=== PATIENT | female | born 1945 | race Caucasian/White ===

== ENCOUNTER 2016-08-01 12:46 | Outpatient (CLI) | payer MEDICARE, OTHER ==
--- NOTE | 2016-08-02 06:48 | Ultrasound Report ---
THYROID ULTRASOUND: 08/01/2016 CLINICAL INDICATION: Hypothyroidism. TECHNIQUE: Real-time scanning was performed with account services representative static images obtained. FINDINGS: The right lobe measures 3.1 x 1.7 x 1.1 cm, and the left lobe measures 4.1 x 1.1 x 0.8 cm. The isthmus measures 4 mm. Both lobes demonstrate mild heterogeneity. There is a 4 mm cyst in the lower pole of the left lobe. No suspicious solid nodule is seen. IMPRESSION: NO EVIDENCE OF SUSPICIOUS SOLID THYROID NODULE. JOB #: [id number] EXT JOB #:
== END 2016-08-01 12:47 | disposition home or self-care (01) ==
LOC: DI 12:46
PROVIDERS: ATTEND Internal Medicine
DX: E03.9 Hypothyroidism, unspecified (principal)
CPT/HCPCS: 76536

== ENCOUNTER 2017-07-11 09:33 | Outpatient (CLI) | payer MEDICARE, OTHER ==
--- NOTE | 2017-07-11 10:47 | XRAY Report ---
THREE VIEW BILATERAL HANDS: 07/11/2017 CLINICAL INDICATION: Arthralgias. COMPARISON: 02/12/2013. FINDINGS: AP, lateral, oblique views of the bilateral hands demonstrate stable mild osteoarthritis. There is no evidence of interval fracture. No radiopaque foreign body is seen in the soft tissues. IMPRESSION: STABLE MILD OSTEOARTHRITIS. TD: 07/11/2017 10:27
== END 2017-07-11 09:34 | disposition home or self-care (01) ==
LOC: DI.N 09:33
PROVIDERS: ATTEND Internal Medicine
DX: M19.042 Primary osteoarthritis, left hand (principal); M19.041 Primary osteoarthritis, right hand

== ENCOUNTER 2018-12-06 09:26 | Outpatient (CLI) | payer MEDICARE, OTHER ==
--- NOTE | 2018-12-09 11:12 | Mammography Report ---
Reason: SCREENING MAMMO Procedure Date: 12/06/2018 Accession Number: [id number] / [id number] Procedure: MGN - Screening Mammo Dig Bilat CPT Code: FULL RESULT: EXAM: Screening Mammo Dig Bilat DATE: 12/06/2018 9:51 AM CLINICAL HISTORY: Screening encounter. TECHNIQUE: (B) - Bilateral CC and MLO views were obtained. COMPARISON: 02/01/2016 through 10/15/2009. PARENCHYMAL PATTERN: (A) - The breast(s) demonstrate(s) scattered fibroglandular densities. FINDINGS: There are no suspicious masses, calcifications, or areas of distortion. IMPRESSION: Negative examination. BI-RADS category 1. RECOMMENDATION: (ANNUAL) - Recommend routine annual screening mammography. BI-RADS CATEGORY: (1) - Negative. STANDARD QUALIFYING STATEMENTS: 1. This examination was not reviewed with the aid of Computer-Aided Detection (CAD). 2. A negative or benign imaging report should not preclude biopsy if clinically suspicious findings are present. 3. Dense breasts may obscure an underlying neoplasm. 4. This examination was reviewed without the aid of 3D breast imaging (tomosynthesis).
== END 2018-12-06 09:27 | disposition home or self-care (01) ==
LOC: DI.N 09:26
DX: Z12.31 Encounter for screening mammogram for malignant neoplasm of breast (principal)
CPT/HCPCS: 77067

== ENCOUNTER 2019-02-03 13:32 | Outpatient (CLI) | payer MEDICARE, OTHER | END 2019-02-03 13:33 | disposition critical access hospital (66) | LOC: EMS 13:32 | PROVIDERS: ATTEND Surgery | DX: R00.2 Palpitations (principal); R42 Dizziness and giddiness | CPT/HCPCS: A0425; A0429 ==

== ENCOUNTER 2019-02-03 13:49 | Emergency (ER) | payer MEDICARE, OTHER ==
[2019-02-03] MEDS ORDERED: PROCAINAMIDE 1,000 MG in SODIUM CHLORIDE 0.9% 240 ML IV STA (14:05)
[2019-02-03] MEDS ORDERED: diltiaZEM INJ 5 MG/ML VIAL IVP STA ×2 (14:05→15:19)
--- NOTE | 2019-02-03 14:08 | ED Physician Documentation ---
PD HPI CHEST PAIN - Stated complaint Stated Complaint: A FIB - Chief complaint Chief Complaint: Cardiac - History obtained from History obtained from: Patient (She is had palpitations with left-sided chest pressure since this morning. Saw her doctor and was referred here for new onset atrial fibrillation. She has never had this before, she does have occasional palpitations without specific diagnosis and they always self resolve. No other history of heart problems. Spent a few months and she is had her high thyroid checked, she is hypothyroid on medications. No pedal edema or calf pain. No shortness of breath.) Review of Systems Ten Systems: 10 systems reviewed and negative Constitutional: reports: Reviewed and negative Nose: reports: Reviewed and negative Throat: reports: Reviewed and negative Cardiac: reports: Chest pain / pressure, Palpitations. denies: Pedal edema, Calf pain Respiratory: denies: Dyspnea, Cough PD PAST MEDICAL HISTORY - Past Medical History Past Medical History: Yes Cardiovascular: Hypertension - Allergies Allergies/Adverse Reactions: Allergies Allergy/AdvReac Type Severity Reaction Status Date / Time codeine Allergy Hallucinati Verified 02/03/19 13:57 ons - Living Situation Living Arrangement: reports: At home - Social History Does the pt smoke?: No Does the pt have substance abuse?: No - Family History Family history: reports: Non contributory PD ED PE NORMAL - Vitals Vital signs reviewed: Yes - General General: Alert and oriented X 3, No acute distress - HEENT HEENT: PERRL, EOMI - Neck Neck: Supple, no meningeal sign, No bony TTP - Cardiac Cardiac: Other (Rapid and irregular, no murmur) - Respiratory Respiratory: No respiratory distress, Clear bilaterally - Abdomen Abdomen: Soft, Non tender - Derm Derm: Normal color, Warm and dry - Extremities Extremities: No edema, No calf tenderness / cord - Neuro Neuro: Alert and oriented X 3, Normal speech - Psych Psych: Normal mood, Normal affect Results - Vitals Vitals: Vital Signs - 24 hr 02/03/19 02/03/19 02/03/19 13:52 14:17 15:03 Temperature 36.8 C 36.9 C Heart Rate 131 H 90 88 Respiratory 17 20 16 Rate Blood Pressure 171/115 H 145/104 H 150/85 H O2 Saturation 98 95 100 02/03/19 02/03/19 02/03/19 15:57 16:18 16:25 Temperature Heart Rate 77 86 70 Respiratory 17 19 14 Rate Blood Pressure 125/78 127/85 H 127/74 O2 Saturation 97 99 96 Oxygen O2 Source Room air - EKG (time done) 1353 Rate: Rate (enter#) (129) Rhythm: Atrial fibrillation [place]: Normal Intervals: Normal DC Ischemia: ST depression (lateral) Computer interpretation: Agree with computer 1624 Rate: Rate (enter#) (69) Rhythm: NSR [place]: Normal Intervals: Prolonged DC QRS: Normal Ischemia: Normal ST segments Computer interpretation: Agree with computer - Labs Labs: Laboratory Tests 02/03/19 02/03/19 02/03/19 14:25 14:25 14:25 WBC 7.2 RBC 5.22 Hgb 15.6 Hct 47.4 H MCV 90.8 MCH 29.9 MCHC 32.9 RDW 12.5 Plt Count 216 MPV 9.7 Neut # (Auto) 3.5 Lymph # (Auto) 3.0 [place] # (Auto) 0.6 Eos # (Auto) 0.1 Baso # (Auto) 0.0 Absolute Nucleated RBC 0.00 Nucleated RBC % 0.0 Sodium 141 Potassium 3.9 Chloride 104 Carbon Dioxide 28 Anion Gap 9.0 BUN 12 Creatinine 0.7 Estimated GFR (MDRD) 82 L Glucose 125 H Calcium 10.0 Troponin I High Sens 12.3 TSH Free T4 02/03/19 14:25 WBC RBC Hgb Hct MCV MCH MCHC RDW Plt Count MPV Neut # (Auto) Lymph # (Auto) [place] # (Auto) Eos # (Auto) Baso # (Auto) Absolute Nucleated RBC Nucleated RBC % Sodium Potassium Chloride Carbon Dioxide Anion Gap BUN Creatinine Estimated GFR (MDRD) Glucose Calcium Troponin I High Sens TSH 1.46 Free T4 0.91 Procedures - Procedural sedation Sedation prep: Informed consent, AHA 2 - mild disease, IV O2 monitor, ET CO2 monitor Sedation medications: propofol (60g IVP) Patient status during sedation: Responds to tactile, Vitals remained stable, Maintained airway, Recovered uneventfully Sedation recovery: Recovered uneventfully, Back to baseline Time in sedation (Minutes): 10 - Cardioversion 1 Time of attempt: 16:15 Risks, benefits, alternatives explained to: Pt Meds: Propofol CS via: Pads, AP approach Sync: Biphasic, 100j Post cardioversion rhythm: NSR Performed by: ED MD PD MEDICAL DECISION MAKING - ED course ED course: This is a 73-year-old woman with new onset atrial fibrillation, sent here from her doctor's office for same. EKG shows some mild lateral ST depression but this could be rate related, otherwise her symptoms seem related to the atrial fibrillation as opposed to ischemia. Will check labs including TSH and troponin. She is loaded with diltiazem and started on a procainamide drip. Since it by history started this morning she should be safe for cardioversion. 73-year-old woman with new onset paroxysmal atrial fibrillation. Rate was controlled with divided doses of IV diltiazem, and then a procainamide drip was done without conversion. She agreed to electrocardioversion and on the first shock was converted to normal sinus rhythm and she was asymptomatic and recovered without issue. Departure - Departure Disposition: 01 Home, Self Care Clinical Impression: Atrial fibrillation Qualifiers: Atrial fibrillation type: paroxysmal Qualified Code(s): I48.0 - Paroxysmal atrial fibrillation Condition: Good Record reviewed to determine appropriate education?: Yes Instructions: Atrial Fibrillation Dc Comments: Continue current medications, make sure you are taking aspirin daily, follow-up with Dr. Jaime Aguiar, consider follow-up echocardiography, also consideration for long-term anticoagulation. Return if worse.
[2019-02-03 14:36] LABS: BASOPHILS % (AUTO) 0.6 %; EOSINOPHILS # (AUTO) 0.1 10^3/uL (0.0-0.7); EOSINOPHILS % (AUTO) 0.7 %; HGB - HEMOGLOBIN 15.6 g/dL (12.0-16.0); LYMPHOCYTES % (AUTO) 41.6 %; MEAN CORPUSCULAR HEMOGLOBIN 29.9 pg (27.0-31.0); MEAN CORPUSCULAR HGB CONC 32.9 g/dL (32.0-36.0); MEAN CORPUSCULAR VOLUME 90.8 fL (81.0-99.0); MEAN PLATELET VOLUME 9.7 fL (7.9-10.8); MONOCYTES # (AUTO) 0.6 10^3/uL (0.0-1.0); MONOCYTES % (AUTO) 8.2 %; NEUTROPHILS # (AUTO) 3.5 10^3/uL (1.5-6.6); NEUTROPHILS % (AUTO) 48.6 %; PLT - PLATELET COUNT 216 10^3/uL (130-450); RED BLOOD COUNT 5.22 10^6/uL (4.20-5.40); RED CELL DISTRIBUTION WIDTH 12.5 % (12.0-15.0); WHITE BLOOD COUNT 7.2 x10^3/uL (4.8-10.8)
[2019-02-03 14:42] LABS: CREATININE 0.7 mg/dL (0.4-1.0)
[2019-02-03 15:04] LABS: THYROID STIMULATING HORMONE 1.46 uIU/mL (0.34-5.60)
[2019-02-03 15:06] LABS: FREE T4 (FREE THYROXINE) 0.91 ng/dL (0.58-1.64)
[2019-02-03] MEDS ORDERED: PROPOFOL 200 MG/20 ML VIAL IVP STA (16:00)
[2019-02-03 17:37] VITALS: BP 128/86
== END 2019-02-03 17:37 | disposition home or self-care (01) ==
LOC: EDUNIT# → ED 13:49
DX: I48.0 Paroxysmal atrial fibrillation (principal); I10 Essential (primary) hypertension; E03.9 Hypothyroidism, unspecified
CPT/HCPCS: 36415; 80048; 84439; 84443; 84484; 85025; 92960; 93005; 94770; 96365; 96366; 96375; 96376; 99152; 99284

== ENCOUNTER 2019-02-03 18:43 | Outpatient (CLI) | payer MEDICARE, OTHER | END 2019-02-03 18:44 | disposition critical access hospital (66) | LOC: EMS 18:43 | PROVIDERS: ATTEND Surgery | DX: R42 Dizziness and giddiness (principal) ==

== ENCOUNTER 2019-02-03 18:58 | Emergency (ER) | payer MEDICARE, OTHER ==
--- NOTE | 2019-02-03 19:56 | ED Physician Documentation ---
PD HPI CHEST PAIN - Stated complaint Stated Complaint: LIGHTHEADED - Chief complaint Chief Complaint: Cardiac - History obtained from History obtained from: Patient - History of Present Illness Timing - onset: Today (I saw her earlier in the day for first episode of symptomatic atrial fibrillation. After several rounds of medications and eventually electrocardioversion she was converted. Subsequent to that she went out to dinner with friends. She started feel sweaty and lightheaded there. No syncope. Now feels back to normal. 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 HEENT: Tonsil/Adenoidectomy - Allergies Allergies/Adverse Reactions: Allergies Allergy/AdvReac Type Severity Reaction Status Date / Time codeine Allergy Hallucinati Verified 02/03/19 13:57 ons - Social History Does the pt smoke?: No Smoking Status: Never smoker Does the pt drink ETOH?: Yes ETOH Use: Wine, Beer Does the pt have substance abuse?: No - Immunizations Immunizations are current?: Yes PD ED PE NORMAL - Vitals Vital signs reviewed: Yes - General General: Alert and oriented X 3, No acute distress - HEENT HEENT: PERRL, EOMI - Neck Neck: Supple, no meningeal sign, No bony TTP - Cardiac Cardiac: RRR, No murmur - Respiratory Respiratory: No respiratory distress, Clear bilaterally - Abdomen Abdomen: Non tender - Extremities Extremities: No edema, No calf tenderness / cord - Neuro Neuro: Alert and oriented X 3, Normal speech Results - Vitals Vitals: Vital Signs - 24 hr 02/03/19 19:05 Temperature 36.6 C Heart Rate 85 Respiratory 18 Rate Blood Pressure 168/83 H O2 Saturation 97 Oxygen O2 Source Room air - EKG (time done) 1916 Rate: Rate (enter#) (72) Rhythm: NSR [place]: Normal Intervals: Normal [place], Prolonged QT QRS: Normal Ischemia: Non specific changes Computer interpretation: Agree with computer PD MEDICAL DECISION MAKING - ED course ED course: This is a woman who was seen earlier in the day for his first episode of atrial fibrillation, got a variety of cardiac medications and was electrically cardioverted and did well but subsequently went out to dinner where she felt dizzy which is not too surprising, I think is just a case of doing too much too soon. Her examination is normal here and she feels better already. Departure - Departure Disposition: 01 Home, Self Care Clinical Impression: Pre-syncope Condition: Good Record reviewed to determine appropriate education?: Yes Instructions: ED Near Syncope Unkn Comments: Go home and rest tonight. Otherwise follow your instructions from earlier in the day. Return if worse
[2019-02-03 20:04] VITALS: BP 130/89
== END 2019-02-03 20:05 | disposition home or self-care (01) ==
LOC: ED 18:58
DX: R55 Syncope and collapse (principal); I45.81 Long QT syndrome; I48.0 Paroxysmal atrial fibrillation; I10 Essential (primary) hypertension; E03.9 Hypothyroidism, unspecified
CPT/HCPCS: 36415; 80048; 84439; 84443; 84484; 85025; 92960; 93005; 96365; 96366; 96375; 96376; 99152; 99284; 99285; J2690; 94770

== ENCOUNTER 2019-04-18 08:08 | Outpatient (CLI) | payer MEDICARE, OTHER ==
[2019-04-18 08:39] LABS: CALCIUM 9.1 mg/dL (8.5-10.3); CREATININE 0.7 mg/dL (0.4-1.0)
== END 2019-04-18 08:09 | disposition home or self-care (01) ==
LOC: LAB 08:08
PROVIDERS: ATTEND Internal Medicine
DX: I10 Essential (primary) hypertension (principal); E78.5 Hyperlipidemia, unspecified; Z79.899 Other long term (current) drug therapy
CPT/HCPCS: 36415; 80048

== ENCOUNTER 2019-07-16 10:08 | Outpatient (CLI) | payer MEDICARE, OTHER ==
--- NOTE | 2019-07-16 16:45 | XRAY Report ---
Reason: PAIN IN RT KNEE, LT FOOT Procedure Date: 07/16/2019 Accession Number: [id number] / [id number] Procedure: XR - Knee 3 View RT CPT Code: Final Report FULL RESULT: EXAM: RIGHT KNEE RADIOGRAPHY. EXAM DATE: 07/16/2019 10:30 AM. CLINICAL HISTORY: Right knee pain with flexion and kneeling since February 2019. COMPARISON: None. TECHNIQUE: 3 views. FINDINGS: Bones: No acute fracture or bony lesion. Mild degenerative spurring largely along the patella. Joints: Mild patellofemoral compartment narrowing. Moderate to large right knee effusion. No dislocation. Soft Tissues: Normal. No soft tissue swelling. IMPRESSION: 1. No acute osseous abnormalities. 2. Mild degenerative changes of the patellofemoral compartment. 3. Moderate to large right knee effusion. RADIA
--- NOTE | 2019-07-16 16:46 | XRAY Report ---
Reason: PAIN IN RT KNEE, LT FOOT Procedure Date: 07/16/2019 Accession Number: [id number] / [id number] Procedure: XR - Foot 3 View LT CPT Code: Final Report FULL RESULT: EXAM: LEFT FOOT RADIOGRAPHY. EXAM DATE: 07/16/2019 10:30 AM. CLINICAL HISTORY: Left foot pain. Hit foot against chair 1 month ago. Pain with weightbearing. COMPARISON: None. TECHNIQUE: 3 views. FINDINGS: Bones: Cortical irregularity and lucency involving the medial lateral portion of the distal aspect of the left 5th proximal phalanx with irregularity of the articular margin of the left fifth proximal phalanx at the fifth interphalangeal joint space. No bony erosions. Degenerative spurring. Joints: Mild to moderate degenerative changes of the left 1st MTP joint. Mild degenerative changes DIP and PIP joints. No dislocation. Soft Tissues: Unremarkable. IMPRESSION: 1. Irregular cortical contour involving the head of the left 5th proximal phalanx concerning for an acute/subacute fracture. No other acute osseous abnormalities. 2. Degenerative changes of the left foot. RADIA
== END 2019-07-16 10:09 | disposition home or self-care (01) ==
LOC: DI 10:08
PROVIDERS: ATTEND Internal Medicine
DX: M19.072 Primary osteoarthritis, left ankle and foot (principal); M17.11 Unilateral primary osteoarthritis, right knee; M25.461 Effusion, right knee

== ENCOUNTER 2019-12-15 10:15 | Outpatient (CLI) | payer MEDICARE, OTHER ==
--- NOTE | 2019-12-16 16:45 | Mammography Report ---
BILATERAL DIGITAL SCREENING MAMMOGRAM 3D/2D: 12/15/2019 CLINICAL: Routine screening. Comparison is made to exams dated: 12/06/2018 mammogram, 02/01/2016 mammogram, and 12/31/2014 mammogra m - [facility]. There are scattered fibroglandular elements in both breasts. No significant masses, calcifications, or other findings are seen in either breast. There has been no significant interval change. IMPRESSION: NEGATIVE There is no mammographic evidence of malignancy. A 1 year screening mammogram is recommended. This exam was interpreted at Station ID: [id number]. NOTE: For mammograms, a report in lay terms will be sent to the patient. Approximately 15% of breast malignancies will not be visualized mammographically. In the management of a palpable breast mass, a negative mammogram must not discourage biopsy of a clinically suspicious lesion. Electronically Signed By: Corwin Groves M.D. ar/laurarad:12/15/2019 15:00:02 ACR BI-RADS Category 1: Negative 3341F PARENCHYMAL PATTERN: (A) - The breast(s) demonstrate(s) scattered fibroglandular densities. BI-RADS CATEGORY: (1) - 1 RECOMMENDATION: (ANNUAL) - Recommend routine annual screening mammography. [id number] 1 year screening LATERALITY: (B)
== END 2019-12-15 10:16 | disposition home or self-care (01) ==
LOC: DI.N 10:15
DX: Z12.31 Encounter for screening mammogram for malignant neoplasm of breast (principal)
CPT/HCPCS: 77063; 77067

== ENCOUNTER 2020-09-14 07:10 | Outpatient (CLI) | payer MEDICARE, OTHER | END 2020-09-14 07:11 | disposition EMS.NT | LOC: EMS 07:10 | DX: R00.2 Palpitations (principal) ==

== ENCOUNTER 2020-09-21 08:00 | Outpatient (CLI) | payer MEDICARE, OTHER | END 2020-09-21 23:59 | disposition home or self-care (01) | LOC: LAB.N 08:00 | PROVIDERS: ATTEND Nurse Practitioner | DX: U07.1 COVID-19 (principal) ==

== ENCOUNTER 2020-11-02 02:23 | Outpatient (CLI) | payer MEDICARE, OTHER | END 2020-11-02 02:24 | disposition critical access hospital (66) | LOC: EMS 02:23 | DX: I48.91 Unspecified atrial fibrillation (principal) | CPT/HCPCS: A0425; A0427 ==

== ENCOUNTER 2020-11-02 02:47 | Emergency (ER) | payer MEDICARE, OTHER ==
[2020-11-02] MEDS ORDERED: PROCAINAMIDE 1,000 MG in SODIUM CHLORIDE 0.9% 240 ML IV STA (02:55)
--- NOTE | 2020-11-02 02:58 | ED Physician Documentation ---
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 Patient states that she took her home metoprolol 25 mg at 10 PM and went to bed, then started to have palpitations and called EMS after they did not resolve. She is found to be in atrial fibrillation by EMS. Patient otherwise asymptomatic and states she had been feeling normal yesterday and is not experiencing any chest pain, shortness of breath, leg swelling or other symptoms today. Review of Systems Ten Systems: 10 systems reviewed and negative Constitutional: denies: Fever, Chills Cardiac: reports: Palpitations. 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 HEENT: Tonsil/Adenoidectomy - Present Medications Home Medications: Ambulatory Orders Medication Instructions Recorded Confirmed Dabigatran [Pradaxa] PO BID 11/02/20 Levothyroxine Sodium 50 mcg PO QID 11/02/20 11/02/20 [Levothyroxine] Lisinopril [Zestril] 10 mg PO DAILY 11/02/20 11/02/20 Metoprolol Tartrate [Lopressor] 25 mg PO DAILY 11/02/20 11/02/20 - Allergies Allergies/Adverse Reactions: Allergies Allergy/AdvReac Type Severity Reaction Status Date / Time amoxicillin Allergy Unknown Verified 11/02/20 02:52 codeine Allergy Hallucinati Verified 02/03/19 13:57 ons nuts Allergy Unknown Uncoded 11/02/20 02:49 - Social History Does the pt smoke?: No Smoking Status: Never smoker Does the pt drink ETOH?: Yes Does the pt have substance abuse?: No - Immunizations Immunizations are current?: Yes PD ED PE NORMAL - Vitals Vital signs reviewed: Yes - General General: Alert and oriented X 3, No acute distress, Well developed/nourished - HEENT HEENT: Atraumatic, PERRL, EOMI - Neck Neck: Supple, no meningeal sign - Cardiac Cardiac: Other (Tachycardic rate, irregular rhythm.) - Respiratory Respiratory: No respiratory distress, Clear bilaterally - Abdomen Abdomen: Non tender, Non distended - Derm Derm: Normal color, Warm and dry - Extremities Extremities: No deformity - Neuro Neuro: Alert and oriented X 3 - Psych Psych: Normal mood, Normal affect Results - Vitals Vitals: Vital Signs - 24 hr 11/02/20 11/02/20 11/02/20 02:49 02:53 03:51 Temperature 36.6 C Heart Rate 135 H 135 H 81 Respiratory 18 18 20 Rate Blood Pressure 144/93 H 144/93 H 155/85 H O2 Saturation 100 100 97 11/02/20 04:09 Temperature Heart Rate 75 Respiratory 19 Rate Blood Pressure 168/87 H O2 Saturation 100 Oxygen O2 Source Room air - EKG (time done) 0247 Rate: Rate (enter#) (122) Rhythm: Atrial fibrillation [place]: Normal QRS: Normal 0340 Rate: Rate (enter#) (79) Rhythm: NSR Intervals: Prolonged [place] (224), QRS normal Ischemia: Q waves (anterior leads) - Labs Labs: Laboratory Tests 11/02/20 11/02/20 11/02/20 03:03 03:03 03:03 WBC 7.5 RBC 5.19 Hgb 16.0 Hct 46.8 MCV 90.2 MCH 30.8 MCHC 34.2 RDW 12.7 Plt Count 199 MPV 9.6 Neut # (Auto) 2.8 Lymph # (Auto) 3.8 H [place] # (Auto) 0.7 Eos # (Auto) 0.2 Baso # (Auto) 0.0 Absolute Nucleated RBC 0.00 Nucleated RBC % 0.0 Sodium 137 Potassium 3.7 Chloride 101 Carbon Dioxide 24 Anion Gap 12.0 BUN 14 Creatinine 0.5 Estimated GFR (MDRD) 121 Glucose 135 H Calcium 9.4 Total Bilirubin 1.2 H AST 43 H ALT 43 Alkaline Phosphatase 67 Troponin I High Sens 6.4 Total Protein 7.6 Albumin 4.5 Globulin 3.1 Albumin/Globulin Ratio 1.5 Lipase 27 PD MEDICAL DECISION MAKING - ED course ED course: Patient experiencing paroxysmal afib. Fully anticoagulated therefore we will attempt rhythm control medications. Does not appear to have concerning secondary etiology but will also obtain labs, cxr. plan for possible electrical cardioversion if no effect with procainamide. Departure - Departure Disposition: 01 Home, Self Care Clinical Impression: Paroxysmal A-fib Condition: Good Instructions: Atrial Fibrillation Dc Comments: You are seen in the emergency department for an episode of atrial fibrillation that resolved after giving procainamide medication. Your lab work, chest x-ray did not show any concerning findings. Your EKG was initially atrial fibrillation and then went into a normal rhythm. You should follow-up with your scalper operator this week. Return to the emergency department if you have any new or worsening symptoms or other concerns.
[2020-11-02] MEDS ORDERED: PROCAINAMIDE 1,000 MG/10 ML SYRINGE ONE (03:04)
[2020-11-02 03:09] LABS: BASOPHILS % (AUTO) 0.5 %; EOSINOPHILS # (AUTO) 0.2 10^3/uL (0.0-0.7); HCT - HEMATOCRIT 46.8 % (37.0-47.0); LYMPHOCYTES # (AUTO) 3.8 10^3/uL (1.5-3.5); LYMPHOCYTES % (AUTO) 50.7 %; MEAN CORPUSCULAR HEMOGLOBIN 30.8 pg (27.0-31.0); MEAN CORPUSCULAR HGB CONC 34.2 g/dL (32.0-36.0); MEAN CORPUSCULAR VOLUME 90.2 fL (81.0-99.0); MEAN PLATELET VOLUME 9.6 fL (7.9-10.8); MONOCYTES # (AUTO) 0.7 10^3/uL (0.0-1.0); MONOCYTES % (AUTO) 8.7 %; NEUTROPHILS # (AUTO) 2.8 10^3/uL (1.5-6.6); PLT - PLATELET COUNT 199 10^3/uL (130-450); RED BLOOD COUNT 5.19 10^6/uL (4.20-5.40); RED CELL DISTRIBUTION WIDTH 12.7 % (12.0-15.0); WHITE BLOOD COUNT 7.5 x10^3/uL (4.8-10.8)
[2020-11-02 03:21] LABS: ALBUMIN 4.5 g/dL (3.2-5.5); ALBUMIN/GLOBULIN RATIO 1.5 (1.0-2.2); BILIRUBIN,TOTAL 1.2 mg/dL (0.2-1.0); CALCIUM 9.4 mg/dL (8.5-10.3); CREATININE 0.5 mg/dL (0.4-1.0); POTASSIUM 3.7 mmol/L (3.5-5.0); TOTAL PROTEIN 7.6 g/dL (6.7-8.2)
[2020-11-02 05:23] VITALS: BP 169/82
--- NOTE | 2020-11-02 08:10 | XRAY Report ---
PROCEDURE: Chest 1 View X-Ray INDICATIONS: Chest Pain TECHNIQUE: One view of the chest was acquired. COMPARISON: None FINDINGS: Surgical changes and devices: None. Lungs and pleura: No pleural effusions or pneumothorax. Lungs are clear. Mediastinum: Mediastinal contours appear normal. Heart size is enlarged. Bones and chest wall: No suspicious bony lesions. Overlying soft tissues appear unremarkable. IMPRESSION: No acute pulmonary process. The above findings are concordant with preliminary report. Reviewed by: Joanna Hendrickson MD on 11/02/2020 8:09 AM PDT Approved by: Joanna Hendrickson MD on 11/02/2020 8:09 AM PDT Station ID: [id number]
== END 2020-11-02 05:35 | disposition home or self-care (01) ==
LOC: EDUNIT# → SUPCPDRO 02:47 → ED 02:47
DX: I48.0 Paroxysmal atrial fibrillation (principal); Z79.01 Long term (current) use of anticoagulants; I10 Essential (primary) hypertension; E78.5 Hyperlipidemia, unspecified; E03.9 Hypothyroidism, unspecified
CPT/HCPCS: 36415; 71045; 80053; 83690; 84484; 85025; 93005; 96365; 99284; 99285; J2690

== ENCOUNTER 2021-03-01 08:38 | Outpatient (CLI) | payer MEDICARE, OTHER ==
--- NOTE | 2021-03-02 13:56 | Mammography Report ---
BILATERAL DIGITAL SCREENING MAMMOGRAM 3D/2D: 03/01/2021 CLINICAL: Routine screening. Comparison is made to exams dated: 12/15/2019 mammogram, 12/06/2018 mammogram, 02/01/2016 mammogram, 12/31/2014 mammogram, 11/26/2013 mammogram, and 10/24/2012 mammogram - [facility]. Th ere are scattered fibroglandular elements in both breasts. No significant masses, calcifications, or other findings are seen in either breast. There has been no significant interval change. IMPRESSION: NEGATIVE There is no mammographic evidence of malignancy. A 1 year screening mammogram is recommended. This exam was interpreted at Station ID: [id number]. NOTE: For mammograms, a report in lay terms will be sent to the patient. Approximately 15% of breast malignancies will not be visualized mammographically. In the management of a palpable breast mass, a negative mammogram must not discourage biopsy of a clinically suspicious lesion. Electronically Signed By: Kvng Gonzales acr/penrad:03/01/2021 11:20:38 ACR BI-RADS Category 1: Negative 3341F PARENCHYMAL PATTERN: (A) - The breast(s) demonstrate(s) scattered fibroglandular densities. BI-RADS CATEGORY: (1) - 1 RECOMMENDATION: (ANNUAL) - Recommend routine annual screening mammography. [id number] 1 year screening LATERALITY: (B)
== END 2021-03-01 08:39 | disposition home or self-care (01) ==
LOC: DI.N 08:38
DX: Z12.31 Encounter for screening mammogram for malignant neoplasm of breast (principal)

== ENCOUNTER 2021-08-22 08:17 | Emergency (ER) | payer MEDICARE, OTHER ==
--- NOTE | 2021-08-22 08:36 | ED Physician Documentation ---
History of Present Illness - Stated complaint Stated Complaint: PALPITATIONS - Chief complaint Chief Complaint: Cardiac - History obtained from History obtained from: Patient - History of Present Illness Timing: Today Pain level max: 0 Pain level now: 0 - Additonal information Additional information: Patient is a 75-year-old female with a history of atrial fibrillation who presents to the emergency department with atrial fibrillation today. She is fully asymptomatic. No chest pain. No shortness of breath. No lightheadedness or dizziness. No near syncope. She states she is scheduled for an ablation next week. She states that she goes in and out of atrial fibrillation at home. She states that she called the ambulance and came in because her granddaughter who is a [employer] at [facility] recommended that she be evaluated. 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: Hysterectomy HEENT: Tonsil/Adenoidectomy - Present Medications Home Medications: Ambulatory Orders Medication Instructions Recorded Confirmed Dabigatran [Pradaxa] 75 mg PO BID 11/02/20 08/22/21 Levothyroxine Sodium 50 mcg PO QID 11/02/20 08/22/21 [Levothyroxine] Lisinopril [Zestril] 10 mg PO DAILY 11/02/20 08/22/21 Metoprolol Tartrate [Lopressor] 25 mg PO DAILY 11/02/20 11/02/20 - Allergies Allergies/Adverse Reactions: Allergies Allergy/AdvReac Type Severity Reaction Status Date / Time amoxicillin Allergy Unknown Verified 08/22/21 08:29 codeine Allergy Hallucinati Verified 08/22/21 08:29 ons rivaroxaban [From Xarelto] AdvReac Unknown Verified 08/22/21 08:29 nuts Allergy Unknown Uncoded 11/02/20 02:49 - Social History Does the pt smoke?: No Smoking Status: Never smoker Does the pt drink ETOH?: Yes Does the pt have substance abuse?: No - Immunizations Immunizations are current?: Yes PD ED PE NORMAL - Vitals Vital signs reviewed: Yes - General General: Alert and oriented X 3, No acute distress - HEENT HEENT: Moist mucous membranes - Neck Neck: Supple, no meningeal sign - Cardiac Cardiac: Other (irregularly irregular) - Respiratory Respiratory: No respiratory distress, Clear bilaterally - Abdomen Abdomen: Soft, Non tender, Non distended - Derm Derm: Warm and dry - Extremities Extremities: No edema, No calf tenderness / cord - Neuro Neuro: Alert and oriented X 3 Results - Vitals Vitals: Vital Signs - 24 hr 08/22/21 08/22/21 08:30 08:47 Temperature 36.7 C Heart Rate 92 108 H Respiratory 20 21 Rate Blood Pressure 155/84 H 136/97 H O2 Saturation 96 96 Oxygen O2 Source Room air - EKG (time done) 0822 Rate: Rate (enter#) (102) Rhythm: Atrial fibrillation [place]: Normal QRS: Normal Ischemia: Non specific changes PD MEDICAL DECISION MAKING - ED course Complexity details: reviewed old records, considered differential, d/w patient ED course: Patient with a longstanding history of paroxysmal atrial fibrillation. She is rate controlled here. Heart rate is between 80 and 100. Fully asymptomatic. Does not want to be cardioverted chemically or electrically. No emergency medical condition at this time. Patient counseled regarding signs and symptoms for which I believe and urgent re-evaluation would be necessary. Patient with good understanding of and agreement to plan and is comfortable going home at this time This document was made in part using voice recognition software. While efforts are made to proofread this document, sound alike and grammatical errors may occur. Departure - Departure Disposition: 01 Home, Self Care Clinical Impression: Atrial fibrillation Qualifiers: Atrial fibrillation type: paroxysmal Qualified Code(s): I48.0 - Paroxysmal atrial fibrillation Condition: Good Instructions: ED Afib Follow-Up: Jaime Aguiar MD [Primary Care Provider] - As Needed Comments: Please follow-up with your doctor for further care. Return if you develop chest pain, shortness of breath or a heart rates greater than 100 that is sustained for 60 to 90 minutes. Discharge Date/Time: 08/22/21 09:10
--- OUTSIDE RECORDS SUMMARY | 2021-08-22 08:43 | EXTERNAL MEDICAL SUMMARY RPT | Continuity of Care Document ---
:1945 Author Organization [facility] Address [address] [place] [address] Phone Allergies and Intolerances date description facility type (no date) amoxicillin [facility] (unknown) (no date) codeine [facility] (unknown) (no date) rivaroxaban [facility] (unknown) Encounters No information. Functional Status No information. Immunizations No information. Medications No information. Problems No information. Procedures date description facility [id number] General Physician [facility] Results/Labs test date author facility value unit interpret ation Result panel 1 (unknown) (no (unknown) (unknown) (no value) (units (unk nown) date) unknown) (unknown) (no (unknown) (unknown) [address] [place] [address] (units (unknown) date) unknown) (unknown) (no (unknown) (unknown) [place], [place] (units ( unknown) date) [id number] unknown) (unknown) (no (unknown) (unknown) [facility] (units (unknown) date) unknown) (unknown) (no (unknown) (unknown) Signed (units (unkno wn) date) unknown) (unknown) (no (unknown) (unknown) XRay Report (units (un known) date) unknown) (unknown) (no (unknown) (unknown) (no value) (units (unk nown) date) unknown) (unknown) (no (unknown) (unknown) 05/31/21 (units (unkno wn) date) unknown) (unknown) (no (unknown) (unknown) Approved by: (units (u nknown) date) darren Pollack M.D. on 05/31/2021 at 8:13 (unknown) (no (unknown) (unknown) Bones and chest (units (unknown) date) wall: unknown) Age-appropriate bony degenerative changes are seen. No (unknown) (no (unknown) (unknown) COMPARISON: (units (un known) date) None. unknown) (unknown) (no (unknown) (unknown) Dictated by: (units (u nknown) date) darren Pollack M.D. on 05/31/2021 at 8:13 (unknown) (no (unknown) (unknown) FINDINGS: (units (unkn own) date) unknown) (unknown) (no (unknown) (unknown) IMPRESSION: (units (un known) date) Unremarkable unknown) portable chest study age. (unknown) (no (unknown) (unknown) INDICATIONS: (units (u nknown) date) chest pain unknown) (unknown) (no (unknown) (unknown) Lungs and (units (unkn own) date) pleura: On this unknown) semiupright portable chest examination, no large (unknown) (no (unknown) (unknown) Mediastinum: (units (u nknown) date) The cardiac unknown) contours are within normal limits. The aorta (unknown) (no (unknown) (unknown) Surgical changes (units (unknown) date) and devices: unknown) None. (unknown) (no (unknown) (unknown) TECHNIQUE: One (units (unknown) date) view of the chest unknown) was acquired. (unknown) (no (unknown) (unknown) bony lesions. (units ( unknown) date) Overlying soft unknown) tissues appear unremarkable. (unknown) (no (unknown) (unknown) calcification (units ( unknown) date) and tortuosity. unknown) (unknown) (no (unknown) (unknown) or large pleural (units (unknown) date) effusions are unknown) seen. No focal infiltrates are seen. (unknown) (no (unknown) (unknown) [id number] (units (unkno wn) date) unknown) (unknown) (no (unknown) (unknown) Accession (units (unkn own) date) Number: unknown) [id number] (unknown) (no (unknown) (unknown) Age/Sex: 75 / F (units (unknown) date) Date of unknown) Service: (unknown) (no (unknown) (unknown) : 1945 (units (unknown) date) Acct:[id number] unknown) (unknown) (no (unknown) (unknown) Loc: ED (units (unkno wn) date) unknown) (unknown) (no (unknown) (unknown) Ordering (units (unkno wn) date) Provider: unknown) Nicki Blank D.O. (unknown) (no (unknown) (unknown) PROCEDURE: XR (units (unknown) date) CHEST 1V unknown) (unknown) (no (unknown) (unknown) Patient: (units (unkno wn) date) Demetra Mota unknown) MR#: [id number] (unknown) (no (unknown) (unknown) Procedure: XR (units ( unknown) date) chest 1V unknown) (unknown) (no (unknown) (unknown) demonstrates (units (u nknown) date) unknown) (unknown) (no (unknown) (unknown) pneumothorax (units (u nknown) date) unknown) (unknown) (no (unknown) (unknown) suspicious (units (unk nown) date) unknown) Result panel 2 (unknown) (no (unknown) (unknown) (no value) (units (unk nown) date) unknown) (unknown) (no (unknown) (unknown) Date of Service: (units (unknown) date) 05/31/21 unknown) (unknown) (no (unknown) (unknown) (no value) (units (unk nown) date) unknown) (unknown) (no (unknown) (unknown) 10 mg PO DAILY (units (unknown) date) 0RF unknown) (unknown) (no (unknown) (unknown) 20 mg PO DAILY (units (unknown) date) 0RF unknown) (unknown) (no (unknown) (unknown) 20 mg PO QPM 0RF (units (unknown) date) unknown) (unknown) (no (unknown) (unknown) 25 mg PO BID 0RF (units (unknown) date) unknown) (unknown) (no (unknown) (unknown) 50 mcg PO DAILY (units (unknown) date) 0RF unknown) (unknown) (no (unknown) (unknown) Allergies (units (unkn own) date) unknown) (unknown) (no (unknown) (unknown) ED Orders (units (unkn own) date) unknown) (unknown) (no (unknown) (unknown) Emergency Report (units (unknown) date) unknown) (unknown) (no (unknown) (unknown) Home Medications (units (unknown) date) unknown) (unknown) (no (unknown) (unknown) Hypertension (units (u nknown) date) unknown) (unknown) (no (unknown) (unknown) [facility] (units (unknown) date) [address] unknown) [place] [address] (unknown) (no (unknown) (unknown) ng (units (unkno wn) date) unknown) (unknown) (no (unknown) (unknown) (no value) (units (unk nown) date) unknown) (unknown) (no (unknown) (unknown) Xarelto 20 mg (units ( unknown) date) tablet unknown) (unknown) (no (unknown) (unknown) levothyroxine 50 (units (unknown) date) mcg capsule unknown) (unknown) (no (unknown) (unknown) lisinopril 10 mg (units (unknown) date) tablet unknown) (unknown) (no (unknown) (unknown) metoprolol (units (unk nown) date) tartrate 25 mg unknown) tablet (unknown) (no (unknown) (unknown) simvastatin (units (un known) date) [Zocor] 20 mg unknown) tablet (unknown) (no (unknown) (unknown) Medication (units (unk nown) date) Instructions unknown) Recorded Confirmed (unknown) (no (unknown) (unknown) 05/31/21 08:51 (units (unknown) date) unknown) (unknown) (no (unknown) (unknown) [id number] (units (unkno wn) date) unknown) (unknown) (no (unknown) (unknown) Age/Sex: 75 / F (units (unknown) date) unknown) (unknown) (no (unknown) (unknown) Allergy/AdvReac (units (unknown) date) Type Severity unknown) Reaction Status Date / Time (unknown) (no (unknown) (unknown) Chief Complaint: (units (unknown) date) Chest Pain unknown) (unknown) (no (unknown) (unknown) Complete Blood (units (unknown) date) Count AUTO DIFF unknown) Stat (unknown) (no (unknown) (unknown) Comprehensive (units ( unknown) date) Metabolic Panel unknown) Stat (unknown) (no (unknown) (unknown) Course (units (unkno wn) date) unknown) (unknown) (no (unknown) (unknown) : 1945 (units (unknown) date) Acct:[id number] unknown) (unknown) (no (unknown) (unknown) Departure (units (unkn own) date) unknown) (unknown) (no (unknown) (unknown) Discharge Plan (units (unknown) date) unknown) (unknown) (no (unknown) (unknown) EKG-12 Lead Stat (units (unknown) date) unknown) (unknown) (no (unknown) (unknown) ER Physician: (units ( unknown) date) Nicki Blank unknown) D.O. (unknown) (no (unknown) (unknown) Family History (units (unknown) date) (Reviewed unknown) 05/31/21 @ 09:01 by Nicki Blank DO) (unknown) (no (unknown) (unknown) Family/Other (units (u nknown) date) Restless leg unknown) syndrome (unknown) (no (unknown) (unknown) Father (units (unkno wn) date) Hypertension unknown) (unknown) (no (unknown) (unknown) General (units (unkno wn) date) unknown) (unknown) (no (unknown) (unknown) Grandmother (units (un known) date) Heart disease unknown) (unknown) (no (unknown) (unknown) HPI - Chest Pain (units (unknown) date) unknown) (unknown) (no (unknown) (unknown) History of (units (unk nown) date) tonsillectomy unknown) (unknown) (no (unknown) (unknown) Jaime Aguiar MD (units (unknown) date) [Primary Care unknown) Provider] - (unknown) (no (unknown) (unknown) Limitations: no (units (unknown) date) limitations unknown) (unknown) (no (unknown) (unknown) Lipase Stat (units (un known) date) unknown) (unknown) (no (unknown) (unknown) Magnesium Stat (units (unknown) date) unknown) (unknown) (no (unknown) (unknown) No Action (units (unkn own) date) unknown) (unknown) (no (unknown) (unknown) Ordered: (units (unkno wn) date) unknown) (unknown) (no (unknown) (unknown) Orders (units (unkno wn) date) unknown) (unknown) (no (unknown) (unknown) Patient History (units (unknown) date) unknown) (unknown) (no (unknown) (unknown) Patient: (units (unkno wn) date) Demetra Mota unknown) MR#: [id number] (unknown) (no (unknown) (unknown) Prescriptions: (units (unknown) date) unknown) (unknown) (no (unknown) (unknown) ROS Unobtainable: (units (unknown) date) All systems unknown) reviewed + are unremarkable except as noted in HPI (unknown) (no (unknown) (unknown) Referrals: (units (unk nown) date) unknown) (unknown) (no (unknown) (unknown) Related Data (units (u nknown) date) unknown) (unknown) (no (unknown) (unknown) Review of (units (unkn own) date) Systems unknown) (unknown) (no (unknown) (unknown) Signed By: (units (unk nown) date) unknown) (unknown) (no (unknown) (unknown) Smoking Status: (units (unknown) date) Never smoker unknown) (unknown) (no (unknown) (unknown) Smoking Status: (units (unknown) date) Never smoker unknown) (unknown) (no (unknown) (unknown) Social History (units (unknown) date) (Reviewed unknown) 05/31/21 @ 09:01 by Nicki Blank DO) (unknown) (no (unknown) (unknown) Source: patient (units (unknown) date) unknown) (unknown) (no (unknown) (unknown) Stated (units (unkno wn) date) Complaint: AFIB unknown) (unknown) (no (unknown) (unknown) Status post (units (un known) date) dilation and unknown) curettage (unknown) (no (unknown) (unknown) Status post (units (un known) date) hysterectomy unknown) (unknown) (no (unknown) (unknown) Surgical History (units (unknown) date) (Reviewed unknown) 05/31/21 @ 09:01 by Nicki Blank DO) (unknown) (no (unknown) (unknown) Time Seen by (units (u nknown) date) Provider: unknown) 05/31/21 09:00 (unknown) (no (unknown) (unknown) Troponin + CK (units ( unknown) date) Cardiac Panel unknown) Stat (unknown) (no (unknown) (unknown) XR chest 1V Stat (units (unknown) date) unknown) (unknown) (no (unknown) (unknown) amoxicillin (units (un known) date) [AMOXICILLIN] unknown) Allergy Intermediate Hives Verified 05/31/21 08:57 (unknown) (no (unknown) (unknown) and below (units (unkn own) date) unknown) (unknown) (no (unknown) (unknown) codeine AdvReac (units (unknown) date) Hallucinati unknown) Verified 05/31/21 08:58 (unknown) (no (unknown) (unknown) levothyroxine 50 (units (unknown) date) mcg capsule 50 unknown) mcg PO DAILY 04/28/19 04/28/19 (unknown) (no (unknown) (unknown) lisinopril 10 mg (units (unknown) date) tablet 10 mg PO unknown) DAILY 04/28/19 04/28/19 (unknown) (no (unknown) (unknown) metoprolol (units (unk nown) date) tartrate 25 mg unknown) tablet 25 mg PO BID 04/28/19 04/28/19 (unknown) (no (unknown) (unknown) rivaroxaban 20 (units (unknown) date) mg tablet unknown) (Xarelto) 20 mg PO DAILY 04/28/19 04/28/19 (unknown) (no (unknown) (unknown) rivaroxaban (units (un known) date) [From Xarelto] unknown) AdvReac Verified 05/31/21 08:58 (unknown) (no (unknown) (unknown) simvastatin 20 (units (unknown) date) mg tablet (Zocor) unknown) 20 mg PO QPM 04/28/19 04/28/19 Result panel 3 (unknown) (no date) (unknown) (unknown) 0 /uL (unkn own) (unknown) (no date) (unknown) (unknown) 0.5 % (unkn own) (unknown) (no date) (unknown) (unknown) 1.6 % (unkn own) (unknown) (no date) (unknown) (unknown) 100 /uL (unkn own) (unknown) (no date) (unknown) (unknown) 13.0 % (unkn own) (unknown) (no date) (unknown) (unknown) 16.2 g/dL (unkn own) (unknown) (no date) (unknown) (unknown) 233 X10 3/uL (unkn own) (unknown) (no date) (unknown) (unknown) 2500 /uL (unkn own) (unknown) (no date) (unknown) (unknown) 2700 /uL (unkn own) (unknown) (no date) (unknown) (unknown) 30.7 PG (unkn own) (unknown) (no date) (unknown) (unknown) 34.1 % (unkn own) (unknown) (no date) (unknown) (unknown) 43.3 % (unkn own) (unknown) (no date) (unknown) (unknown) 46.1 % (unkn own) (unknown) (no date) (unknown) (unknown) 47.5 % (unkn own) (unknown) (no date) (unknown) (unknown) 5.29 X10 6/uL (unkn own) (unknown) (no date) (unknown) (unknown) 5.9 X10 3/uL (unkn own) (unknown) (no date) (unknown) (unknown) 500 /uL (unkn own) (unknown) (no date) (unknown) (unknown) 8.5 % (unkn own) (unknown) (no date) (unknown) (unknown) 89.8 fL (unkn own) Result panel 4 (unknown) (no (unknown) (unknown) (no value) (units (unk nown) date) unknown) (unknown) (no (unknown) (unknown) Date of Service: (units (unknown) date) 05/31/21 unknown) (unknown) (no (unknown) (unknown) (no value) (units (unk nown) date) unknown) (unknown) (no (unknown) (unknown) 05/31/21 08:45 (units (unknown) date) unknown) (unknown) (no (unknown) (unknown) 10 mg PO DAILY (units (unknown) date) 0RF unknown) (unknown) (no (unknown) (unknown) 20 mg PO DAILY (units (unknown) date) 0RF unknown) (unknown) (no (unknown) (unknown) 20 mg PO QPM 0RF (units (unknown) date) unknown) (unknown) (no (unknown) (unknown) 25 mg PO BID 0RF (units (unknown) date) unknown) (unknown) (no (unknown) (unknown) 50 mcg PO DAILY (units (unknown) date) 0RF unknown) (unknown) (no (unknown) (unknown) Allergies (units (unkn own) date) unknown) (unknown) (no (unknown) (unknown) ED Orders (units (unkn own) date) unknown) (unknown) (no (unknown) (unknown) Emergency Report (units (unknown) date) unknown) (unknown) (no (unknown) (unknown) Home Medications (units (unknown) date) unknown) (unknown) (no (unknown) (unknown) Hypertension (units (u nknown) date) unknown) (unknown) (no (unknown) (unknown) [facility] (units (unknown) date) [address] [place] [address] Street unknown) [place] [address] (unknown) (no (unknown) (unknown) Vital Signs - 8 (units (unknown) date) hr unknown) (unknown) (no (unknown) (unknown) ng (units (unkno wn) date) unknown) (unknown) (no (unknown) (unknown) (no value) (units (unk nown) date) unknown) (unknown) (no (unknown) (unknown) Xarelto 20 mg (units ( unknown) date) tablet unknown) (unknown) (no (unknown) (unknown) levothyroxine 50 (units (unknown) date) mcg capsule unknown) (unknown) (no (unknown) (unknown) lisinopril 10 mg (units (unknown) date) tablet unknown) (unknown) (no (unknown) (unknown) metoprolol (units (unk nown) date) tartrate 25 mg unknown) tablet (unknown) (no (unknown) (unknown) simvastatin (units (un known) date) [Zocor] 20 mg unknown) tablet (unknown) (no (unknown) (unknown) 05/31/21 (units (unkno wn) date) unknown) (unknown) (no (unknown) (unknown) Medication (units (unk nown) date) Instructions unknown) Recorded Confirmed (unknown) (no (unknown) (unknown) She has not had (units (unknown) date) any prior cardiac unknown) interventions no stents or ablation. She has (unknown) (no (unknown) (unknown) 05/31/21 08:45 (units (unknown) date) unknown) (unknown) (no (unknown) (unknown) 05/31/21 08:51 (units (unknown) date) unknown) (unknown) (no (unknown) (unknown) 08:35 (units (unkno wn) date) unknown) (unknown) (no (unknown) (unknown) [id number] (units (unkno wn) date) unknown) (unknown) (no (unknown) (unknown) Age/Sex: 75 / F (units (unknown) date) unknown) (unknown) (no (unknown) (unknown) Allergy/AdvReac (units (unknown) date) Type Severity unknown) Reaction Status Date / Time (unknown) (no (unknown) (unknown) Blood Pressure (units (unknown) date) 199/95 H unknown) 05/31/21 08:35 (unknown) (no (unknown) (unknown) Blood Pressure (units (unknown) date) 199/95 H unknown) (unknown) (no (unknown) (unknown) Chief Complaint: (units (unknown) date) Chest Pain unknown) (unknown) (no (unknown) (unknown) Complete Blood (units (unknown) date) Count AUTO DIFF unknown) Stat (unknown) (no (unknown) (unknown) Comprehensive (units ( unknown) date) Metabolic Panel unknown) Stat (unknown) (no (unknown) (unknown) Course (units (unkno wn) date) unknown) (unknown) (no (unknown) (unknown) : 1945 (units (unknown) date) Acct:[id number] unknown) (unknown) (no (unknown) (unknown) Departure (units (unkn own) date) unknown) (unknown) (no (unknown) (unknown) Discharge Plan (units (unknown) date) unknown) (unknown) (no (unknown) (unknown) EKG-12 Lead Stat (units (unknown) date) unknown) (unknown) (no (unknown) (unknown) ER Physician: (units ( unknown) date) Nicki Blank unknown) D.O. (unknown) (no (unknown) (unknown) Exam (units (unkno wn) date) unknown) (unknown) (no (unknown) (unknown) Family History (units (unknown) date) (Reviewed unknown) 05/31/21 @ 09:01 by Nicki Blank DO) (unknown) (no (unknown) (unknown) Family/Other (units (u nknown) date) Restless leg unknown) syndrome (unknown) (no (unknown) (unknown) Father (units (unkno wn) date) Hypertension unknown) (unknown) (no (unknown) (unknown) General (units (unkno wn) date) unknown) (unknown) (no (unknown) (unknown) Grandmother (units (un known) date) Heart disease unknown) (unknown) (no (unknown) (unknown) HPI - Chest Pain (units (unknown) date) unknown) (unknown) (no (unknown) (unknown) HPI narrative: (units (unknown) date) unknown) (unknown) (no (unknown) (unknown) History of (units (unk nown) date) Present Illness unknown) (unknown) (no (unknown) (unknown) History of (units (unk nown) date) tonsillectomy unknown) (unknown) (no (unknown) (unknown) Initial Vital (units ( unknown) date) Signs unknown) (unknown) (no (unknown) (unknown) Initial Vital (units ( unknown) date) Signs: unknown) (unknown) (no (unknown) (unknown) Jaime Aguira MD (units (unknown) date) [Primary Care unknown) Provider] - (unknown) (no (unknown) (unknown) Lab Data (units (unkno wn) date) unknown) (unknown) (no (unknown) (unknown) Limitations: no (units (unknown) date) limitations unknown) (unknown) (no (unknown) (unknown) Lipase Stat (units (un known) date) unknown) (unknown) (no (unknown) (unknown) MDM - Chest Pain (units (unknown) date) unknown) (unknown) (no (unknown) (unknown) Magnesium Stat (units (unknown) date) unknown) (unknown) (no (unknown) (unknown) No Action (units (unkn own) date) unknown) (unknown) (no (unknown) (unknown) Ordered: (units (unkno wn) date) unknown) (unknown) (no (unknown) (unknown) Orders (units (unkno wn) date) unknown) (unknown) (no (unknown) (unknown) Patient History (units (unknown) date) unknown) (unknown) (no (unknown) (unknown) Patient: (units (unkno wn) date) Demetra Mota unknown) MR#: [id number] (unknown) (no (unknown) (unknown) Pradaxa which he (units (unknown) date) takes twice unknown) daily. She denies missing any doses. She states (unknown) (no (unknown) (unknown) Pradaxa, (units (unkno wn) date) lisinopril, unknown) sotalol and levothyroxine. She has had all of her (unknown) (no (unknown) (unknown) Prescriptions: (units (unknown) date) unknown) (unknown) (no (unknown) (unknown) Pulse Oximetry (units (unknown) date) 98 05/31/21 unknown) 08:35 (unknown) (no (unknown) (unknown) Pulse Oximetry (units (unknown) date) 98 unknown) (unknown) (no (unknown) (unknown) Pulse Rate 112 (units (unknown) date) H 05/31/21 08:35 unknown) (unknown) (no (unknown) (unknown) Pulse Rate 112 H (units (unknown) date) unknown) (unknown) (no (unknown) (unknown) ROS Unobtainable: (units (unknown) date) All systems unknown) reviewed + are unremarkable except as noted in HPI (unknown) (no (unknown) (unknown) Referrals: (units (unk nown) date) unknown) (unknown) (no (unknown) (unknown) Related Data (units (u nknown) date) unknown) (unknown) (no (unknown) (unknown) Respiratory Rate (units (unknown) date) 20 05/31/21 unknown) 08:35 (unknown) (no (unknown) (unknown) Respiratory Rate (units (unknown) date) 20 unknown) (unknown) (no (unknown) (unknown) Result diagrams: (units (unknown) date) unknown) (unknown) (no (unknown) (unknown) Review of (units (unkn own) date) Systems unknown) (unknown) (no (unknown) (unknown) Signed By: (units (unk nown) date) unknown) (unknown) (no (unknown) (unknown) Smoking Status: (units (unknown) date) Never smoker unknown) (unknown) (no (unknown) (unknown) Smoking Status: (units (unknown) date) Never smoker unknown) (unknown) (no (unknown) (unknown) Social History (units (unknown) date) (Reviewed unknown) 05/31/21 @ 09:01 by Nicki Blank DO) (unknown) (no (unknown) (unknown) Source: patient (units (unknown) date) unknown) (unknown) (no (unknown) (unknown) Stated (units (unkno wn) date) Complaint: AFIB unknown) (unknown) (no (unknown) (unknown) Status post (units (un known) date) dilation and unknown) curettage (unknown) (no (unknown) (unknown) Status post (units (un known) date) hysterectomy unknown) (unknown) (no (unknown) (unknown) Surgical History (units (unknown) date) (Reviewed unknown) 05/31/21 @ 09:01 by Nicki Blank DO) (unknown) (no (unknown) (unknown) Temperature (units (un known) date) 98.0 F 05/31/21 unknown) 08:35 (unknown) (no (unknown) (unknown) Temperature 98.0 (units (unknown) date) F unknown) (unknown) (no (unknown) (unknown) This is a (units (unkno wn) date) 75-year-old unknown) female comes emergency department stating she is in atrial (unknown) (no (unknown) (unknown) Time Seen by (units (u nknown) date) Provider: unknown) 05/31/21 09:00 (unknown) (no (unknown) (unknown) Troponin + CK (units ( unknown) date) Cardiac Panel unknown) Stat (unknown) (no (unknown) (unknown) Vital Signs (units (un known) date) unknown) (unknown) (no (unknown) (unknown) Vital signs: (units (u nknown) date) unknown) (unknown) (no (unknown) (unknown) XR chest 1V Stat (units (unknown) date) unknown) (unknown) (no (unknown) (unknown) [Embedded Image (units (unknown) date) Not Available] unknown) (unknown) (no (unknown) (unknown) additional (units (unk nown) date) episode really unknown) give her medication which cardioverted her. And she (unknown) (no (unknown) (unknown) amoxicillin (units (un known) date) [AMOXICILLIN] unknown) Allergy Intermediate Hives Verified 05/31/21 08:57 (unknown) (no (unknown) (unknown) and below (units (unkn own) date) unknown) (unknown) (no (unknown) (unknown) codeine AdvReac (units (unknown) date) Hallucinati unknown) Verified 05/31/21 08:58 (unknown) (no (unknown) (unknown) fibrillation. (units ( unknown) date) She has had a unknown) history of AFib she is anticoagulated propylene on (unknown) (no (unknown) (unknown) had any syncope. (units (unknown) date) No nausea, no unknown) vomiting. No swelling her extremities. She is (unknown) (no (unknown) (unknown) had (units (unkno wn) date) tonsillectomy and unknown) hysterectomy. No tobacco, occasional alcohol none (unknown) (no (unknown) (unknown) has had 2 (units (unkno wn) date) episodes where unknown) she was able to switch back to a normal rhythm at home. (unknown) (no (unknown) (unknown) is Dr. Ornelas. (units (unknown) date) unknown) (unknown) (no (unknown) (unknown) just feels (units (unk nown) date) irregular chills unknown) occasional fluttering. She denies chest pain or (unknown) (no (unknown) (unknown) last night she (units (unknown) date) noticed her heart unknown) irregular, it felt fast at that time but now (unknown) (no (unknown) (unknown) levothyroxine 50 (units (unknown) date) mcg capsule 50 unknown) mcg PO DAILY 04/28/19 04/28/19 (unknown) (no (unknown) (unknown) lisinopril 10 mg (units (unknown) date) tablet 10 mg PO unknown) DAILY 04/28/19 04/28/19 (unknown) (no (unknown) (unknown) medications (units (un known) date) today except for unknown) her levothyroxine. She has had 1 cardioversion (unknown) (no (unknown) (unknown) metoprolol (units (unk nown) date) tartrate 25 mg unknown) tablet 25 mg PO BID 04/28/19 04/28/19 (unknown) (no (unknown) (unknown) pressure or (units (un known) date) shortness of unknown) breath. She has been mildly lightheaded but has not (unknown) (no (unknown) (unknown) recently, no (units (u nknown) date) illicit. Her unknown) primary care doctors Dr. Aguiar and her medical social worker (unknown) (no (unknown) (unknown) rivaroxaban 20 (units (unknown) date) mg tablet unknown) (Xarelto) 20 mg PO DAILY 04/28/19 04/28/19 (unknown) (no (unknown) (unknown) rivaroxaban (units (un known) date) [From Xarelto] unknown) AdvReac Verified 05/31/21 08:58 (unknown) (no (unknown) (unknown) scheduled for an (units (unknown) date) ablation in August unknown) of 2021. Patient states that she is on (unknown) (no (unknown) (unknown) simvastatin 20 (units (unknown) date) mg tablet (Zocor) unknown) 20 mg PO QPM 04/28/19 04/28/19 (unknown) (no (unknown) (unknown) where she (units (unkno wn) date) received unknown) medication and an electrical shock at would be ER. She had 1 Result panel 5 (unknown) (no (unknown) (unknown) (no value) (units (unk nown) date) unknown) (unknown) (no (unknown) (unknown) Radiologist's (units ( unknown) date) Impression: unknown) (unknown) (no (unknown) (unknown) (no value) (units (unk nown) date) unknown) (unknown) (no (unknown) (unknown) Date of Service: (units (unknown) date) 05/31/21 unknown) (unknown) (no (unknown) (unknown) (no value) (units (unk nown) date) unknown) (unknown) (no (unknown) (unknown) 05/31/21 08:45 (units (unknown) date) unknown) (unknown) (no (unknown) (unknown) 10 mg PO DAILY (units (unknown) date) 0RF unknown) (unknown) (no (unknown) (unknown) [address] [place] [address] (units (unknown) date) unknown) (unknown) (no (unknown) (unknown) 20 mg PO DAILY (units (unknown) date) 0RF unknown) (unknown) (no (unknown) (unknown) 20 mg PO QPM 0RF (units (unknown) date) unknown) (unknown) (no (unknown) (unknown) 25 mg PO BID 0RF (units (unknown) date) unknown) (unknown) (no (unknown) (unknown) 50 mcg PO DAILY (units (unknown) date) 0RF unknown) (unknown) (no (unknown) (unknown) Allergies (units (unkn own) date) unknown) (unknown) (no (unknown) (unknown) [place], [place] (units ( unknown) date) [id number] unknown) (unknown) (no (unknown) (unknown) ED Orders (units (unkn own) date) unknown) (unknown) (no (unknown) (unknown) Emergency Report (units (unknown) date) unknown) (unknown) (no (unknown) (unknown) Home Medications (units (unknown) date) unknown) (unknown) (no (unknown) (unknown) Hypertension (units (u nknown) date) unknown) (unknown) (no (unknown) (unknown) [facility] (units (unknown) date) unknown) (unknown) (no (unknown) (unknown) [facility] (units (unknown) date) [address] [place] [address] unknown) [place] [address] (unknown) (no (unknown) (unknown) Lab Results (units (un known) date) unknown) (unknown) (no (unknown) (unknown) Launch?Image (units (u nknown) date) unknown) (unknown) (no (unknown) (unknown) Signed (units (unkno wn) date) unknown) (unknown) (no (unknown) (unknown) Stop: 05/31/21 (units (unknown) date) 10:13 unknown) (unknown) (no (unknown) (unknown) Vital Signs - 8 (units (unknown) date) hr unknown) (unknown) (no (unknown) (unknown) XRay Report (units (un known) date) unknown) (unknown) (no (unknown) (unknown) ng (units (unkno wn) date) unknown) (unknown) (no (unknown) (unknown) (no value) (units (unk nown) date) unknown) (unknown) (no (unknown) (unknown) 05/31/21 (units (unkno wn) date) Range/Units unknown) (unknown) (no (unknown) (unknown) 08:45 (units (unkno wn) date) unknown) (unknown) (no (unknown) (unknown) Xarelto 20 mg (units ( unknown) date) tablet unknown) (unknown) (no (unknown) (unknown) levothyroxine 50 (units (unknown) date) mcg capsule unknown) (unknown) (no (unknown) (unknown) lisinopril 10 mg (units (unknown) date) tablet unknown) (unknown) (no (unknown) (unknown) metoprolol (units (unk nown) date) tartrate 25 mg unknown) tablet (unknown) (no (unknown) (unknown) simvastatin (units (un known) date) [Zocor] 20 mg unknown) tablet (unknown) (no (unknown) (unknown) 05/31/21 (units (unkno wn) date) unknown) (unknown) (no (unknown) (unknown) Medication (units (unk nown) date) Instructions unknown) Recorded Confirmed (unknown) (no (unknown) (unknown) She has not had (units (unknown) date) any prior cardiac unknown) interventions no stents or ablation. She has (unknown) (no (unknown) (unknown) 05/31/21 08:45 (units (unknown) date) unknown) (unknown) (no (unknown) (unknown) 05/31/21 08:51 (units (unknown) date) unknown) (unknown) (no (unknown) (unknown) 05/31/21 09:15 (units (unknown) date) unknown) (unknown) (no (unknown) (unknown) 08:35 05/31/21 (units (unknown) date) unknown) (unknown) (no (unknown) (unknown) 08:45 05/31/21 (units (unknown) date) unknown) (unknown) (no (unknown) (unknown) 09:00 (units (unkno wn) date) unknown) (unknown) (no (unknown) (unknown) 09:01 (units (unkno wn) date) unknown) (unknown) (no (unknown) (unknown) [id number] (units (unkno wn) date) unknown) (unknown) (no (unknown) (unknown) ? (units (unkno wn) date) unknown) (unknown) (no (unknown) (unknown) ABDOMEN: Soft, (units (unknown) date) nontender. unknown) Normoactive bowel sounds all 4 quadrants. No (unknown) (no (unknown) (unknown) AFib with rate of (units (unknown) date) 76 QRS 82 and QTC unknown) of 425. No acute ST elevation depression (unknown) (no (unknown) (unknown) Accession Number: (units (unknown) date) [id number] ?? unknown) (unknown) (no (unknown) (unknown) Acct:[id number] (units (unknown) date) unknown) (unknown) (no (unknown) (unknown) Age/Sex: 75 / F (units (unknown) date) unknown) (unknown) (no (unknown) (unknown) Age/Sex: 75 / F (units (unknown) date) unknown) (unknown) (no (unknown) (unknown) Allergy/AdvReac (units (unknown) date) Type Severity unknown) Reaction Status Date / Time (unknown) (no (unknown) (unknown) Approved by: (units (u nknown) date) Mark Anthony Rodriguez, unknownRegina Crane on 05/31/2021 at 8:13?? (unknown) (no (unknown) (unknown) Attestation: I (units (unknown) date) personally unknown) reviewed and interpreted this ECG as follows: (unknown) (no (unknown) (unknown) Baso # (Auto) 0 (units (unknown) date) (0-100) /uL unknown) (unknown) (no (unknown) (unknown) Baso % (Auto) (units ( unknown) date) 0.5 (0-2) % unknown) (unknown) (no (unknown) (unknown) Blood Pressure (units (unknown) date) 199/95 H 05/31/21 unknown) 08:35 (unknown) (no (unknown) (unknown) Blood Pressure (units (unknown) date) 141/85 H unknown) (unknown) (no (unknown) (unknown) Blood Pressure (units (unknown) date) 199/95 H unknown) (unknown) (no (unknown) (unknown) Bones and chest (units (unknown) date) wall:? unknown) Age-appropriate bony degenerative changes are seen.? No (unknown) (no (unknown) (unknown) CARDIOVASCULAR: (units (unknown) date) Irregularly unknown) irregular rate and rhythm without murmurs, rubs or (unknown) (no (unknown) (unknown) COMPARISON:? (units (u nknown) date) None. unknown) (unknown) (no (unknown) (unknown) COVID19 -Nasal (units (unknown) date) swab/Pre-Proc Stat unknown) (unknown) (no (unknown) (unknown) Chest x-ray: (units (u nknown) date) unknown) (unknown) (no (unknown) (unknown) Chief Complaint: (units (unknown) date) Chest Pain unknown) (unknown) (no (unknown) (unknown) Complete Blood (units (unknown) date) Count AUTO DIFF unknown) Stat (unknown) (no (unknown) (unknown) Comprehensive (units ( unknown) date) Metabolic Panel unknown) Stat (unknown) (no (unknown) (unknown) Course (units (unkno wn) date) unknown) (unknown) (no (unknown) (unknown) : 1945 (units (unknown) date) Acct:[id number] unknown) (unknown) (no (unknown) (unknown) : 1945 (units (unknown) date) unknown) (unknown) (no (unknown) (unknown) Date of Service: (units (unknown) date) 05/31/21 unknown) (unknown) (no (unknown) (unknown) Departure (units (unkn own) date) unknown) (unknown) (no (unknown) (unknown) Dictated by: (units (u nknown) date) darren Pollack M.D. on 05/31/2021 at 8:13 ? ? (unknown) (no (unknown) (unknown) Discharge Plan (units (unknown) date) unknown) (unknown) (no (unknown) (unknown) ECG Data (units (unkno wn) date) unknown) (unknown) (no (unknown) (unknown) EKG-12 Lead Stat (units (unknown) date) unknown) (unknown) (no (unknown) (unknown) ER Physician: (units ( unknown) date) Nicki Blank D.O. unknown) (unknown) (no (unknown) (unknown) EXTREMITIES: (units (u nknown) date) Normal range of unknown) motion, no clubbing or edema. Neurovascularly (unknown) (no (unknown) (unknown) Eos # (Auto) 100 (units (unknown) date) (0-450) /uL unknown) (unknown) (no (unknown) (unknown) Eos % (Auto) 1.6 (units (unknown) date) L (2-4) % unknown) (unknown) (no (unknown) (unknown) Exam (units (unkno wn) date) unknown) (unknown) (no (unknown) (unknown) Exam Narrative: (units (unknown) date) unknown) (unknown) (no (unknown) (unknown) FINDINGS:? (units (unk nown) date) unknown) (unknown) (no (unknown) (unknown) Family History (units (unknown) date) (Reviewed 05/31/21 unknown) @ 09:15 by Nicki Blank DO) (unknown) (no (unknown) (unknown) Family/Other (units (u nknown) date) Restless leg unknown) syndrome (unknown) (no (unknown) (unknown) Father (units (unkno wn) date) Hypertension unknown) (unknown) (no (unknown) (unknown) GENERAL: Alert (units (unknown) date) and oriented x unknown) three, female mild distress. (unknown) (no (unknown) (unknown) : No CVA (units (unk nown) date) tenderness unknown) (unknown) (no (unknown) (unknown) General (units (unkno wn) date) unknown) (unknown) (no (unknown) (unknown) GenericComposite[ (units (unknown) date) Plt Count 233 unknown) (150-400) X10^3/uL ] (unknown) (no (unknown) (unknown) GenericComposite[ (units (unknown) date) RBC 5.29 H unknown) (4.0-5.2) X10^6/uL ] (unknown) (no (unknown) (unknown) GenericComposite[ (units (unknown) date) WBC 5.9 unknown) (4.5-11.0) X10^3/uL ] (unknown) (no (unknown) (unknown) Grandmother (units (un known) date) Heart disease unknown) (unknown) (no (unknown) (unknown) HEENT: Head (units (un known) date) normocephalic, unknown) atraumatic, EOMI, pupils reactive, face symmetric, (unknown) (no (unknown) (unknown) HPI - Chest Pain (units (unknown) date) unknown) (unknown) (no (unknown) (unknown) HPI narrative: (units (unknown) date) unknown) (unknown) (no (unknown) (unknown) Hct 47.5 H (units (un known) date) (36-46) % unknown) (unknown) (no (unknown) (unknown) Hgb 16.2 H (units (un known) date) (12.0-16.0) g/dL unknown) (unknown) (no (unknown) (unknown) History of (units (unk nown) date) Present Illness unknown) (unknown) (no (unknown) (unknown) History of (units (unk nown) date) tonsillectomy unknown) (unknown) (no (unknown) (unknown) IMPRESSION:? (units (u nknown) date) Unremarkable unknown) portable chest study age.? (unknown) (no (unknown) (unknown) INDICATIONS:? (units ( unknown) date) chest pain unknown) (unknown) (no (unknown) (unknown) Imaging Data (units (u nknown) date) unknown) (unknown) (no (unknown) (unknown) Initial Vital (units ( unknown) date) Signs unknown) (unknown) (no (unknown) (unknown) Initial Vital (units ( unknown) date) Signs: unknown) (unknown) (no (unknown) (unknown) Interpretation: (units (unknown) date) unknown) (unknown) (no (unknown) (unknown) Jaime Aguiar MD (units (unknown) date) [Primary Care unknown) Provider] - (unknown) (no (unknown) (unknown) Lab Data (units (unkno wn) date) unknown) (unknown) (no (unknown) (unknown) Labs: (units (unkno wn) date) unknown) (unknown) (no (unknown) (unknown) Limitations: no (units (unknown) date) limitations unknown) (unknown) (no (unknown) (unknown) Lipase Stat (units (un known) date) unknown) (unknown) (no (unknown) (unknown) Loc: ED (units (unkno wn) date) unknown) (unknown) (no (unknown) (unknown) Lungs and (units (unkn own) date) pleura:? On this unknown) semiupright portable chest examination, no large (unknown) (no (unknown) (unknown) Lymph # (Auto) (units (unknown) date) 2700 ([id number]) unknown) /uL (unknown) (no (unknown) (unknown) Lymph % (Auto) (units (unknown) date) 46.1 H (25-40) % unknown) (unknown) (no (unknown) (unknown) MCH 30.7 (units (unkn own) date) (26-34) PG unknown) (unknown) (no (unknown) (unknown) MCHC 34.1 (units (unk nown) date) (30-36) % unknown) (unknown) (no (unknown) (unknown) MCV 89.8 (units (unkn own) date) (80-100) fL unknown) (unknown) (no (unknown) (unknown) MDM - Chest Pain (units (unknown) date) unknown) (unknown) (no (unknown) (unknown) MR#: [id number] (units (unknown) date) unknown) (unknown) (no (unknown) (unknown) Magnesium Stat (units (unknown) date) unknown) (unknown) (no (unknown) (unknown) Mediastinum:? The (units (unknown) date) cardiac contours unknown) are within normal limits. The aorta (unknown) (no (unknown) (unknown) [place] # (Auto) (units ( unknown) date) 500 (0-900) /uL unknown) (unknown) (no (unknown) (unknown) [place] % (Auto) (units ( unknown) date) 8.5 (3-14) % unknown) (unknown) (no (unknown) (unknown) NECK: Supple, (units ( unknown) date) full range of unknown) motion (unknown) (no (unknown) (unknown) NEUROLOGICAL: (units ( unknown) date) Cranial nerves II unknown) through XII grossly intact. Moving all (unknown) (no (unknown) (unknown) Narrative (units (unkn own) date) unknown) (unknown) (no (unknown) (unknown) Neut # (Auto) (units ( unknown) date) 2500 ([id number]) unknown) /uL (unknown) (no (unknown) (unknown) Neut % (Auto) (units ( unknown) date) 43.3 L (50-75) % unknown) (unknown) (no (unknown) (unknown) No Action (units (unkn own) date) unknown) (unknown) (no (unknown) (unknown) Ordered: (units (unkno wn) date) unknown) (unknown) (no (unknown) (unknown) Ordering (units (unkno wn) date) Provider: unknown) Nicki Blank D.O. (unknown) (no (unknown) (unknown) Orders (units (unkno wn) date) unknown) (unknown) (no (unknown) (unknown) PROCEDURE:? XR (units (unknown) date) CHEST 1V unknown) (unknown) (no (unknown) (unknown) Patient History (units (unknown) date) unknown) (unknown) (no (unknown) (unknown) Patient: (units (unkno wn) date) Demetra Mota unknown) MR#: [id number] (unknown) (no (unknown) (unknown) Patient: (units (unkno wn) date) Demetra Mota unknown) (unknown) (no (unknown) (unknown) Pradaxa which he (units (unknown) date) takes twice daily. unknown) She denies missing any doses. She states (unknown) (no (unknown) (unknown) Pradaxa, (units (unkno wn) date) lisinopril, unknown) sotalol and levothyroxine. She has had all of her (unknown) (no (unknown) (unknown) Prescriptions: (units (unknown) date) unknown) (unknown) (no (unknown) (unknown) Prior ECG (units (unkn own) date) tracings: not unknown) available for review (unknown) (no (unknown) (unknown) Procedure: XR (units ( unknown) date) chest 1V unknown) (unknown) (no (unknown) (unknown) Pulse Oximetry (units (unknown) date) 98 05/31/21 unknown) 08:35 (unknown) (no (unknown) (unknown) Pulse Oximetry 96 (units (unknown) date) unknown) (unknown) (no (unknown) (unknown) Pulse Oximetry 98 (units (unknown) date) 99 97 unknown) (unknown) (no (unknown) (unknown) Pulse Rate 112 H (units (unknown) date) 05/31/21 08:35 unknown) (unknown) (no (unknown) (unknown) Pulse Rate 112 H (units (unknown) date) 86 82 unknown) (unknown) (no (unknown) (unknown) Pulse Rate 88 (units ( unknown) date) unknown) (unknown) (no (unknown) (unknown) RDW 13.0 (units (unkn own) date) (11.6-14.8) % unknown) (unknown) (no (unknown) (unknown) RESPIRATORY: (units (u nknown) date) Breath sounds unknown) equal bilaterally, no wheezes rales or rhonchi. No (unknown) (no (unknown) (unknown) ROS Unobtainable: (units (unknown) date) All systems unknown) reviewed + are unremarkable except as noted in HPI (unknown) (no (unknown) (unknown) Referrals: (units (unk nown) date) unknown) (unknown) (no (unknown) (unknown) Related Data (units (u nknown) date) unknown) (unknown) (no (unknown) (unknown) Respiratory Rate (units (unknown) date) 20 05/31/21 unknown) 08:35 (unknown) (no (unknown) (unknown) Respiratory Rate (units (unknown) date) 20 35 H 32 H unknown) (unknown) (no (unknown) (unknown) Respiratory Rate (units (unknown) date) 36 H unknown) (unknown) (no (unknown) (unknown) Result diagrams: (units (unknown) date) unknown) (unknown) (no (unknown) (unknown) Review of Systems (units (unknown) date) unknown) (unknown) (no (unknown) (unknown) SKIN: Warm, dry, (units (unknown) date) no petechiae, no unknown) rashes or lesions. (unknown) (no (unknown) (unknown) Signed By: (units (unk nown) date) unknown) (unknown) (no (unknown) (unknown) Smoking Status: (units (unknown) date) Never smoker unknown) (unknown) (no (unknown) (unknown) Smoking Status: (units (unknown) date) Never smoker unknown) (unknown) (no (unknown) (unknown) Social History (units (unknown) date) (Reviewed 05/31/21 unknown) @ 09:15 by Nicki Blank DO) (unknown) (no (unknown) (unknown) Sodium Chloride (units (unknown) date) (Normal Saline unknown) 0.9%) 1,000 mls @ 1,000 mls/hr IV BOLUS ONE (unknown) (no (unknown) (unknown) Source: patient (units (unknown) date) unknown) (unknown) (no (unknown) (unknown) Stated Complaint: (units (unknown) date) AFIB unknown) (unknown) (no (unknown) (unknown) Status post (units (un known) date) dilation and unknown) curettage (unknown) (no (unknown) (unknown) Status post (units (un known) date) hysterectomy unknown) (unknown) (no (unknown) (unknown) Surgical History (units (unknown) date) (Reviewed 05/31/21 unknown) @ 09:15 by Nicki Blank DO) (unknown) (no (unknown) (unknown) Surgical changes (units (unknown) date) and devices:? unknown) None.? (unknown) (no (unknown) (unknown) TECHNIQUE:? One (units (unknown) date) view of the chest unknown) was acquired.? (unknown) (no (unknown) (unknown) Temperature (units (un known) date) unknown) (unknown) (no (unknown) (unknown) Temperature 98.0 (units (unknown) date) F 05/31/21 08:35 unknown) (unknown) (no (unknown) (unknown) Temperature 98.0 (units (unknown) date) F unknown) (unknown) (no (unknown) (unknown) This is a (units (unkno wn) date) 75-year-old female unknown) comes emergency department stating she is in atrial (unknown) (no (unknown) (unknown) Time Seen by (units (u nknown) date) Provider: 05/31/21 unknown) 09:00 (unknown) (no (unknown) (unknown) Troponin + CK (units ( unknown) date) Cardiac Panel Stat unknown) (unknown) (no (unknown) (unknown) Vital Signs (units (un known) date) unknown) (unknown) (no (unknown) (unknown) Vital signs: (units (u nknown) date) unknown) (unknown) (no (unknown) (unknown) XR chest 1V Stat (units (unknown) date) unknown) (unknown) (no (unknown) (unknown) [Embedded Image (units (unknown) date) Not Available] unknown) (unknown) (no (unknown) (unknown) additional (units (unk nown) date) episode really unknown) give her medication which cardioverted her. And she (unknown) (no (unknown) (unknown) amoxicillin (units (un known) date) [AMOXICILLIN] unknown) Allergy Intermediate Hives Verified 05/31/21 08:57 (unknown) (no (unknown) (unknown) and below (units (unkn own) date) unknown) (unknown) (no (unknown) (unknown) bony lesions.? (units (unknown) date) Overlying soft unknown) tissues appear unremarkable.? (unknown) (no (unknown) (unknown) calcification and (units (unknown) date) tortuosity. unknown) (unknown) (no (unknown) (unknown) codeine AdvReac (units (unknown) date) Hallucinati unknown) Verified 05/31/21 08:58 (unknown) (no (unknown) (unknown) demonstrates (units (u nknown) date) unknown) (unknown) (no (unknown) (unknown) extremities (units (un known) date) unknown) (unknown) (no (unknown) (unknown) fibrillation. (units ( unknown) date) She has had a unknown) history of AFib she is anticoagulated propylene on (unknown) (no (unknown) (unknown) gallops. No JVD. (units (unknown) date) No swelling unknown) bilateral lower extremities. (unknown) (no (unknown) (unknown) guarding or (units (un known) date) rebound, rigidity, unknown) no mass (unknown) (no (unknown) (unknown) had any syncope. (units (unknown) date) No nausea, no unknown) vomiting. No swelling her extremities. She is (unknown) (no (unknown) (unknown) had tonsillectomy (units (unknown) date) and hysterectomy. unknown) No tobacco, occasional alcohol none (unknown) (no (unknown) (unknown) has had 2 episodes (units (unknown) date) where she was able unknown) to switch back to a normal rhythm at home. (unknown) (no (unknown) (unknown) intact (units (unkno wn) date) unknown) (unknown) (no (unknown) (unknown) is Dr. Ornelas. (units (unknown) date) unknown) (unknown) (no (unknown) (unknown) just feels (units (unk nown) date) irregular chills unknown) occasional fluttering. She denies chest pain or (unknown) (no (unknown) (unknown) last night she (units (unknown) date) noticed her heart unknown) irregular, it felt fast at that time but now (unknown) (no (unknown) (unknown) levothyroxine 50 (units (unknown) date) mcg capsule 50 mcg unknown) PO DAILY 04/28/19 04/28/19 (unknown) (no (unknown) (unknown) lisinopril 10 mg (units (unknown) date) tablet 10 mg PO unknown) DAILY 04/28/19 04/28/19 (unknown) (no (unknown) (unknown) medications today (units (unknown) date) except for her unknown) levothyroxine. She has had 1 cardioversion (unknown) (no (unknown) (unknown) metoprolol (units (unk nown) date) tartrate 25 mg unknown) tablet 25 mg PO BID 04/28/19 04/28/19 (unknown) (no (unknown) (unknown) moist mucous (units (u nknown) date) membranes unknown) (unknown) (no (unknown) (unknown) noted. No priors (units (unknown) date) available for unknown) comparison. (unknown) (no (unknown) (unknown) or large pleural (units (unknown) date) effusions are unknown) seen.? No focal infiltrates are seen.? (unknown) (no (unknown) (unknown) pneumothorax (units (u nknown) date) unknown) (unknown) (no (unknown) (unknown) pressure or (units (un known) date) shortness of unknown) breath. She has been mildly lightheaded but has not (unknown) (no (unknown) (unknown) recently, no (units (u nknown) date) illicit. Her unknown) primary care doctors Dr. Aguiar and her medical social worker (unknown) (no (unknown) (unknown) rivaroxaban 20 mg (units (unknown) date) tablet (Xarelto) unknown) 20 mg PO DAILY 04/28/19 04/28/19 (unknown) (no (unknown) (unknown) rivaroxaban [From (units (unknown) date) Xarelto] AdvReac unknown) Verified 05/31/21 08:58 (unknown) (no (unknown) (unknown) scheduled for an (units (unknown) date) ablation in August unknown) of 2021. Patient states that she is on (unknown) (no (unknown) (unknown) simvastatin 20 mg (units (unknown) date) tablet (Zocor) 20 unknown) mg PO QPM 04/28/19 04/28/19 (unknown) (no (unknown) (unknown) suspicious (units (unk nown) date) unknown) (unknown) (no (unknown) (unknown) tachypnea (units (unkn own) date) accessory muscle unknown) use. (unknown) (no (unknown) (unknown) where she received (units (unknown) date) medication and an unknown) electrical shock at would be ER. She had 1 Result panel 6 (unknown) (no date) (unknown) (unknown) > 60.0 mL/min (unkn own) (unknown) (no date) (unknown) (unknown) 0.64 mg/dL (unkn own) (unknown) (no date) (unknown) (unknown) 1.1 mg/dL (unkn own) (unknown) (no date) (unknown) (unknown) 1.4 (units (unkn own) unknown) (unknown) (no date) (unknown) (unknown) 101 mmol/L (unkn own) (unknown) (no date) (unknown) (unknown) 13 mg/dL (unkn own) (unknown) (no date) (unknown) (unknown) 136 mg/dL (unkn own) (unknown) (no date) (unknown) (unknown) 138 mmol/L (unkn own) (unknown) (no date) (unknown) (unknown) 2.2 mg/dL (unkn own) (unknown) (no date) (unknown) (unknown) 20.3 (units (unkn own) unknown) (unknown) (no date) (unknown) (unknown) 28 IU/L (unkn own) (unknown) (no date) (unknown) (unknown) 28 mmol/L (unkn own) (unknown) (no date) (unknown) (unknown) 3.4 g/dL (unkn own) (unknown) (no date) (unknown) (unknown) 37 IU/L (unkn own) (unknown) (no date) (unknown) (unknown) 4.3 mmol/L (unkn own) (unknown) (no date) (unknown) (unknown) 4.7 g/dL (unkn own) (unknown) (no date) (unknown) (unknown) 69 U/L (unkn own) (unknown) (no date) (unknown) (unknown) 75 U/L (unkn own) (unknown) (no date) (unknown) (unknown) 8.1 g/dL (unkn own) (unknown) (no date) (unknown) (unknown) 84 U/L (unkn own) (unknown) (no date) (unknown) (unknown) 9.4 mg/dL (unkn own) (unknown) (no date) (unknown) (unknown) Test not % (unkn own) performed (unknown) (no date) (unknown) (unknown) Test not ng/mL (unkn own) performed Result panel 7 (unknown) (no date) (unknown) (unknown) > 60.0 mL/min (unkn own) (unknown) (no date) (unknown) (unknown) < 0.012 ng/mL (unkn own) (unknown) (no date) (unknown) (unknown) 0.64 mg/dL (unkn own) (unknown) (no date) (unknown) (unknown) 1.1 mg/dL (unkn own) (unknown) (no date) (unknown) (unknown) 1.4 (units (unkn own) unknown) (unknown) (no date) (unknown) (unknown) 101 mmol/L (unkn own) (unknown) (no date) (unknown) (unknown) 13 mg/dL (unkn own) (unknown) (no date) (unknown) (unknown) 136 mg/dL (unkn own) (unknown) (no date) (unknown) (unknown) 138 mmol/L (unkn own) (unknown) (no date) (unknown) (unknown) 2.2 mg/dL (unkn own) (unknown) (no date) (unknown) (unknown) 20.3 (units (unkn own) unknown) (unknown) (no date) (unknown) (unknown) 28 IU/L (unkn own) (unknown) (no date) (unknown) (unknown) 28 mmol/L (unkn own) (unknown) (no date) (unknown) (unknown) 3.4 g/dL (unkn own) (unknown) (no date) (unknown) (unknown) 37 IU/L (unkn own) (unknown) (no date) (unknown) (unknown) 4.3 mmol/L (unkn own) (unknown) (no date) (unknown) (unknown) 4.7 g/dL (unkn own) (unknown) (no date) (unknown) (unknown) 69 U/L (unkn own) (unknown) (no date) (unknown) (unknown) 75 U/L (unkn own) (unknown) (no date) (unknown) (unknown) 8.1 g/dL (unkn own) (unknown) (no date) (unknown) (unknown) 84 U/L (unkn own) (unknown) (no date) (unknown) (unknown) 9.4 mg/dL (unkn own) (unknown) (no date) (unknown) (unknown) Test not % (unkn own) performed (unknown) (no date) (unknown) (unknown) Test not ng/mL (unkn own) performed Result panel 8 (unknown) (no (unknown) (unknown) (no value) (units (unk nown) date) unknown) (unknown) (no (unknown) (unknown) Radiologist's (units ( unknown) date) Impression: unknown) (unknown) (no (unknown) (unknown) (no value) (units (unk nown) date) unknown) (unknown) (no (unknown) (unknown) Date of Service: (units (unknown) date) 05/31/21 unknown) (unknown) (no (unknown) (unknown) (no value) (units (unk nown) date) unknown) (unknown) (no (unknown) (unknown) 05/31/21 08:45 (units (unknown) date) unknown) (unknown) (no (unknown) (unknown) 10 mg PO DAILY (units (unknown) date) 0RF unknown) (unknown) (no (unknown) (unknown) [address] [place] [address] (units (unknown) date) unknown) (unknown) (no (unknown) (unknown) 20 mg PO DAILY (units (unknown) date) 0RF unknown) (unknown) (no (unknown) (unknown) 20 mg PO QPM 0RF (units (unknown) date) unknown) (unknown) (no (unknown) (unknown) 25 mg PO BID 0RF (units (unknown) date) unknown) (unknown) (no (unknown) (unknown) 50 mcg PO DAILY (units (unknown) date) 0RF unknown) (unknown) (no (unknown) (unknown) Allergies (units (unkn own) date) unknown) (unknown) (no (unknown) (unknown) [place] (units ( unknown) date) [id number] unknown) (unknown) (no (unknown) (unknown) Documented by: (units (unknown) date) NRHOADS unknown) (unknown) (no (unknown) (unknown) ED Orders (units (unkn own) date) unknown) (unknown) (no (unknown) (unknown) Emergency Report (units (unknown) date) unknown) (unknown) (no (unknown) (unknown) Home Medications (units (unknown) date) unknown) (unknown) (no (unknown) (unknown) Hypertension (units (u nknown) date) unknown) (unknown) (no (unknown) (unknown) [facility] (units (unknown) date) unknown) (unknown) (no (unknown) (unknown) [facility] (units (unknown) date) [address] unknown) [place] [id number] (unknown) (no (unknown) (unknown) Lab Results (units (un known) date) unknown) (unknown) (no (unknown) (unknown) Last Admin: (units (un known) date) 05/31/21 09:19 unknown) Dose: 1,000 mls/hr (unknown) (no (unknown) (unknown) Launch?Image (units (u nknown) date) unknown) (unknown) (no (unknown) (unknown) Signed (units (unkno wn) date) unknown) (unknown) (no (unknown) (unknown) Stop: 05/31/21 (units (unknown) date) 10:13 unknown) (unknown) (no (unknown) (unknown) Vital Signs - 8 (units (unknown) date) hr unknown) (unknown) (no (unknown) (unknown) XRay Report (units (un known) date) unknown) (unknown) (no (unknown) (unknown) ng (units (unkno wn) date) unknown) (unknown) (no (unknown) (unknown) (no value) (units (unk nown) date) unknown) (unknown) (no (unknown) (unknown) 05/31/21 05/31/21 (units (unknown) date) Range/Units unknown) (unknown) (no (unknown) (unknown) 08:45 08:45 (units (un known) date) unknown) (unknown) (no (unknown) (unknown) Xarelto 20 mg (units ( unknown) date) tablet unknown) (unknown) (no (unknown) (unknown) levothyroxine 50 (units (unknown) date) mcg capsule unknown) (unknown) (no (unknown) (unknown) lisinopril 10 mg (units (unknown) date) tablet unknown) (unknown) (no (unknown) (unknown) metoprolol (units (unk nown) date) tartrate 25 mg unknown) tablet (unknown) (no (unknown) (unknown) simvastatin (units (un known) date) [Zocor] 20 mg unknown) tablet (unknown) (no (unknown) (unknown) 05/31/21 (units (unkno wn) date) unknown) (unknown) (no (unknown) (unknown) Medication (units (unk nown) date) Instructions unknown) Recorded Confirmed (unknown) (no (unknown) (unknown) She has not had (units (unknown) date) any prior cardiac unknown) interventions no stents or ablation. She has (unknown) (no (unknown) (unknown) 05/31/21 08:45 (units (unknown) date) unknown) (unknown) (no (unknown) (unknown) 05/31/21 08:51 (units (unknown) date) unknown) (unknown) (no (unknown) (unknown) 05/31/21 09:20 (units (unknown) date) unknown) (unknown) (no (unknown) (unknown) 08:35 05/31/21 (units (unknown) date) unknown) (unknown) (no (unknown) (unknown) 08:45 05/31/21 (units (unknown) date) unknown) (unknown) (no (unknown) (unknown) 09:00 (units (unkno wn) date) unknown) (unknown) (no (unknown) (unknown) 09:01 (units (unkno wn) date) unknown) (unknown) (no (unknown) (unknown) [id number] (units (unkno wn) date) unknown) (unknown) (no (unknown) (unknown) ? (units (unkno wn) date) unknown) (unknown) (no (unknown) (unknown) ABDOMEN: Soft, (units (unknown) date) nontender. unknown) Normoactive bowel sounds all 4 quadrants. No (unknown) (no (unknown) (unknown) AFib with rate of (units (unknown) date) 76 QRS 82 and QTC unknown) of 425. No acute ST elevation depression (unknown) (no (unknown) (unknown) ALT 28 (<35) (units (unknown) date) IU/L unknown) (unknown) (no (unknown) (unknown) AST 37 H (units (unk nown) date) (14-36) IU/L unknown) (unknown) (no (unknown) (unknown) Accession Number: (units (unknown) date) [id number] ?? unknown) (unknown) (no (unknown) (unknown) Acct:[id number] (units (unknown) date) unknown) (unknown) (no (unknown) (unknown) Age/Sex: 75 / F (units (unknown) date) unknown) (unknown) (no (unknown) (unknown) Age/Sex: 75 / F (units (unknown) date) unknown) (unknown) (no (unknown) (unknown) Albumin 4.7 (units ( unknown) date) (3.5-5.0) g/dL unknown) (unknown) (no (unknown) (unknown) Albumin/Globulin (units (unknown) date) Ratio 1.4 unknown) (1.0-2.8) (unknown) (no (unknown) (unknown) Alkaline (units (unkno wn) date) Phosphatase 75 unknown) (38-126) U/L (unknown) (no (unknown) (unknown) Allergy/AdvReac (units (unknown) date) Type Severity unknown) Reaction Status Date / Time (unknown) (no (unknown) (unknown) Approved by: (units (u nknown) date) Mark Anthony Rodriguez, unknownRegina Crane on 05/31/2021 at 8:13?? (unknown) (no (unknown) (unknown) Attestation: I (units (unknown) date) personally unknown) reviewed and interpreted this ECG as follows: (unknown) (no (unknown) (unknown) BUN 13 (7-17) (units (unknown) date) mg/dL unknown) (unknown) (no (unknown) (unknown) BUN/Creatinine (units (unknown) date) Ratio 20.3 unknown) (6-22) (unknown) (no (unknown) (unknown) Baso # (Auto) 0 (units (unknown) date) (0-100) /uL unknown) (unknown) (no (unknown) (unknown) Baso % (Auto) (units ( unknown) date) 0.5 (0-2) % unknown) (unknown) (no (unknown) (unknown) Blood Pressure (units (unknown) date) 199/95 H 05/31/21 unknown) 08:35 (unknown) (no (unknown) (unknown) Blood Pressure (units (unknown) date) 141/85 H unknown) (unknown) (no (unknown) (unknown) Blood Pressure (units (unknown) date) 199/95 H unknown) (unknown) (no (unknown) (unknown) Bones and chest (units (unknown) date) wall:? unknown) Age-appropriate bony degenerative changes are seen.? No (unknown) (no (unknown) (unknown) CARDIOVASCULAR: (units (unknown) date) Irregularly unknown) irregular rate and rhythm without murmurs, rubs or (unknown) (no (unknown) (unknown) CK-MB (CK-2) (units (u nknown) date) TNP unknown) (unknown) (no (unknown) (unknown) CK-MB (CK-2) Rel (units (unknown) date) Index TNP unknown) (unknown) (no (unknown) (unknown) COMPARISON:? (units (u nknown) date) None. unknown) (unknown) (no (unknown) (unknown) COVID19 -Nasal (units (unknown) date) swab/Pre-Proc Stat unknown) (unknown) (no (unknown) (unknown) Calcium 9.4 (units ( unknown) date) (8.4-10.2) mg/dL unknown) (unknown) (no (unknown) (unknown) Carbon Dioxide (units (unknown) date) 28 (22-32) unknown) mmol/L (unknown) (no (unknown) (unknown) Chest x-ray: (units (u nknown) date) unknown) (unknown) (no (unknown) (unknown) Chief Complaint: (units (unknown) date) Chest Pain unknown) (unknown) (no (unknown) (unknown) Chloride 101 (units (unknown) date) (98-107) mmol/L unknown) (unknown) (no (unknown) (unknown) Complete Blood (units (unknown) date) Count AUTO DIFF unknown) Stat (unknown) (no (unknown) (unknown) Comprehensive (units ( unknown) date) Metabolic Panel unknown) Stat (unknown) (no (unknown) (unknown) Course (units (unkno wn) date) unknown) (unknown) (no (unknown) (unknown) Creatinine 0.64 (units (unknown) date) (0.52-1.04) unknown) mg/dL (unknown) (no (unknown) (unknown) : 1945 (units (unknown) date) Acct:[id number] unknown) (unknown) (no (unknown) (unknown) : 1945 (units (unknown) date) unknown) (unknown) (no (unknown) (unknown) Date of Service: (units (unknown) date) 05/31/21 unknown) (unknown) (no (unknown) (unknown) Departure (units (unkn own) date) unknown) (unknown) (no (unknown) (unknown) Dictated by: (units (u nknown) date) darren Pollack M.D. on 05/31/2021 at 8:13 ? ? (unknown) (no (unknown) (unknown) Discharge Plan (units (unknown) date) unknown) (unknown) (no (unknown) (unknown) ECG Data (units (unkno wn) date) unknown) (unknown) (no (unknown) (unknown) EKG-12 Lead Stat (units (unknown) date) unknown) (unknown) (no (unknown) (unknown) ER Physician: (units ( unknown) date) Nicki Blank D.O. unknown) (unknown) (no (unknown) (unknown) EXTREMITIES: (units (u nknown) date) Normal range of unknown) motion, no clubbing or edema. Neurovascularly (unknown) (no (unknown) (unknown) Eos # (Auto) 100 (units (unknown) date) (0-450) /uL unknown) (unknown) (no (unknown) (unknown) Eos % (Auto) 1.6 (units (unknown) date) L (2-4) % unknown) (unknown) (no (unknown) (unknown) Estimated GFR > (units (unknown) date) 60.0 (>60) unknown) mL/min (unknown) (no (unknown) (unknown) Exam (units (unkno wn) date) unknown) (unknown) (no (unknown) (unknown) Exam Narrative: (units (unknown) date) unknown) (unknown) (no (unknown) (unknown) FINDINGS:? (units (unk nown) date) unknown) (unknown) (no (unknown) (unknown) Family History (units (unknown) date) (Reviewed 05/31/21 unknown) @ 09:15 by Nicki Blank DO) (unknown) (no (unknown) (unknown) Family/Other (units (u nknown) date) Restless leg unknown) syndrome (unknown) (no (unknown) (unknown) Father (units (unkno wn) date) Hypertension unknown) (unknown) (no (unknown) (unknown) GENERAL: Alert (units (unknown) date) and oriented x unknown) three, female mild distress. (unknown) (no (unknown) (unknown) : No CVA (units (unk nown) date) tenderness unknown) (unknown) (no (unknown) (unknown) General (units (unkno wn) date) unknown) (unknown) (no (unknown) (unknown) GenericComposite[ (units (unknown) date) Plt Count 233 unknown) (150-400) X10^3/uL ] (unknown) (no (unknown) (unknown) GenericComposite[ (units (unknown) date) RBC 5.29 H unknown) (4.0-5.2) X10^6/uL ] (unknown) (no (unknown) (unknown) GenericComposite[ (units (unknown) date) WBC 5.9 unknown) (4.5-11.0) X10^3/uL ] (unknown) (no (unknown) (unknown) Globulin 3.4 (units (unknown) date) (1.7-4.1) g/dL unknown) (unknown) (no (unknown) (unknown) Glucose 136 H (units (unknown) date) (80-110) mg/dL unknown) (unknown) (no (unknown) (unknown) Grandmother (units (un known) date) Heart disease unknown) (unknown) (no (unknown) (unknown) HEENT: Head (units (un known) date) normocephalic, unknown) atraumatic, EOMI, pupils reactive, face symmetric, (unknown) (no (unknown) (unknown) HPI - Chest Pain (units (unknown) date) unknown) (unknown) (no (unknown) (unknown) HPI narrative: (units (unknown) date) unknown) (unknown) (no (unknown) (unknown) Hct 47.5 H (units (un known) date) (36-46) % unknown) (unknown) (no (unknown) (unknown) Hgb 16.2 H (units (un known) date) (12.0-16.0) g/dL unknown) (unknown) (no (unknown) (unknown) History of (units (unk nown) date) Present Illness unknown) (unknown) (no (unknown) (unknown) History of (units (unk nown) date) tonsillectomy unknown) (unknown) (no (unknown) (unknown) IMPRESSION:? (units (u nknown) date) Unremarkable unknown) portable chest study age.? (unknown) (no (unknown) (unknown) INDICATIONS:? (units ( unknown) date) chest pain unknown) (unknown) (no (unknown) (unknown) Imaging Data (units (u nknown) date) unknown) (unknown) (no (unknown) (unknown) Initial Vital (units ( unknown) date) Signs unknown) (unknown) (no (unknown) (unknown) Initial Vital (units ( unknown) date) Signs: unknown) (unknown) (no (unknown) (unknown) Interpretation: (units (unknown) date) unknown) (unknown) (no (unknown) (unknown) Jaime Aguiar MD (units (unknown) date) [Primary Care unknown) Provider] - (unknown) (no (unknown) (unknown) Lab Data (units (unkno wn) date) unknown) (unknown) (no (unknown) (unknown) Labs: (units (unkno wn) date) unknown) (unknown) (no (unknown) (unknown) Limitations: no (units (unknown) date) limitations unknown) (unknown) (no (unknown) (unknown) Lipase 69 (units (un known) date) (23-300) U/L unknown) (unknown) (no (unknown) (unknown) Lipase Stat (units (un known) date) unknown) (unknown) (no (unknown) (unknown) Loc: ED (units (unkno wn) date) unknown) (unknown) (no (unknown) (unknown) Lungs and (units (unkn own) date) pleura:? On this unknown) semiupright portable chest examination, no large (unknown) (no (unknown) (unknown) Lymph # (Auto) (units (unknown) date) 2700 (7815-5715) unknown) /uL (unknown) (no (unknown) (unknown) Lymph % (Auto) (units (unknown) date) 46.1 H (25-40) unknown) % (unknown) (no (unknown) (unknown) MCH 30.7 (units (unkn own) date) (26-34) PG unknown) (unknown) (no (unknown) (unknown) MCHC 34.1 (units (unk nown) date) (30-36) % unknown) (unknown) (no (unknown) (unknown) MCV 89.8 (units (unkn own) date) (80-100) fL unknown) (unknown) (no (unknown) (unknown) MDM - Chest Pain (units (unknown) date) unknown) (unknown) (no (unknown) (unknown) MR#: [id number] (units (unknown) date) unknown) (unknown) (no (unknown) (unknown) Magnesium 2.2 (units (unknown) date) (1.6-2.3) mg/dL unknown) (unknown) (no (unknown) (unknown) Magnesium Stat (units (unknown) date) unknown) (unknown) (no (unknown) (unknown) Mediastinum:? The (units (unknown) date) cardiac contours unknown) are within normal limits. The aorta (unknown) (no (unknown) (unknown) [place] # (Auto) (units ( unknown) date) 500 (0-900) /uL unknown) (unknown) (no (unknown) (unknown) [place] % (Auto) (units ( unknown) date) 8.5 (3-14) % unknown) (unknown) (no (unknown) (unknown) NECK: Supple, (units ( unknown) date) full range of unknown) motion (unknown) (no (unknown) (unknown) NEUROLOGICAL: (units ( unknown) date) Cranial nerves II unknown) through XII grossly intact. Moving all (unknown) (no (unknown) (unknown) Narrative (units (unkn own) date) unknown) (unknown) (no (unknown) (unknown) Neut # (Auto) (units ( unknown) date) 2500 (3526-9509) unknown) /uL (unknown) (no (unknown) (unknown) Neut % (Auto) (units ( unknown) date) 43.3 L (50-75) unknown) % (unknown) (no (unknown) (unknown) No Action (units (unkn own) date) unknown) (unknown) (no (unknown) (unknown) Ordered: (units (unkno wn) date) unknown) (unknown) (no (unknown) (unknown) Ordering (units (unkno wn) date) Provider: unknown) Nicki Blank D.OJone (unknown) (no (unknown) (unknown) Orders (units (unkno wn) date) unknown) (unknown) (no (unknown) (unknown) PROCEDURE:? XR (units (unknown) date) CHEST 1V unknown) (unknown) (no (unknown) (unknown) Patient History (units (unknown) date) unknown) (unknown) (no (unknown) (unknown) Patient: (units (unkno wn) date) Demetra Mota unknown) MR#: [id number] (unknown) (no (unknown) (unknown) Patient: (units (unkno wn) date) Demetra Mota unknown) (unknown) (no (unknown) (unknown) Potassium 4.3 (units (unknown) date) (3.4-5.1) mmol/L unknown) (unknown) (no (unknown) (unknown) Pradaxa which he (units (unknown) date) takes twice daily. unknown) She denies missing any doses. She states (unknown) (no (unknown) (unknown) Pradaxa, (units (unkno wn) date) lisinopril, unknown) sotalol and levothyroxine. She has had all of her (unknown) (no (unknown) (unknown) Prescriptions: (units (unknown) date) unknown) (unknown) (no (unknown) (unknown) Prior ECG (units (unkn own) date) tracings: not unknown) available for review (unknown) (no (unknown) (unknown) Procedure: XR (units ( unknown) date) chest 1V unknown) (unknown) (no (unknown) (unknown) Pulse Oximetry (units (unknown) date) 98 05/31/21 unknown) 08:35 (unknown) (no (unknown) (unknown) Pulse Oximetry 96 (units (unknown) date) unknown) (unknown) (no (unknown) (unknown) Pulse Oximetry 98 (units (unknown) date) 99 97 unknown) (unknown) (no (unknown) (unknown) Pulse Rate 112 H (units (unknown) date) 05/31/21 08:35 unknown) (unknown) (no (unknown) (unknown) Pulse Rate 112 H (units (unknown) date) 86 82 unknown) (unknown) (no (unknown) (unknown) Pulse Rate 88 (units ( unknown) date) unknown) (unknown) (no (unknown) (unknown) RDW 13.0 (units (unkn own) date) (11.6-14.8) % unknown) (unknown) (no (unknown) (unknown) RESPIRATORY: (units (u nknown) date) Breath sounds unknown) equal bilaterally, no wheezes rales or rhonchi. No (unknown) (no (unknown) (unknown) ROS Unobtainable: (units (unknown) date) All systems unknown) reviewed + are unremarkable except as noted in HPI (unknown) (no (unknown) (unknown) Referrals: (units (unk nown) date) unknown) (unknown) (no (unknown) (unknown) Related Data (units (u nknown) date) unknown) (unknown) (no (unknown) (unknown) Respiratory Rate (units (unknown) date) 20 05/31/21 unknown) 08:35 (unknown) (no (unknown) (unknown) Respiratory Rate (units (unknown) date) 20 35 H 32 H unknown) (unknown) (no (unknown) (unknown) Respiratory Rate (units (unknown) date) 36 H unknown) (unknown) (no (unknown) (unknown) Result diagrams: (units (unknown) date) unknown) (unknown) (no (unknown) (unknown) Review of Systems (units (unknown) date) unknown) (unknown) (no (unknown) (unknown) SKIN: Warm, dry, (units (unknown) date) no petechiae, no unknown) rashes or lesions. (unknown) (no (unknown) (unknown) Signed By: (units (unk nown) date) unknown) (unknown) (no (unknown) (unknown) Smoking Status: (units (unknown) date) Never smoker unknown) (unknown) (no (unknown) (unknown) Smoking Status: (units (unknown) date) Never smoker unknown) (unknown) (no (unknown) (unknown) Social History (units (unknown) date) (Reviewed 05/31/21 unknown) @ 09:15 by Nicki Blank DO) (unknown) (no (unknown) (unknown) Sodium 138 (units (u nknown) date) (137-145) mmol/L unknown) (unknown) (no (unknown) (unknown) Sodium Chloride (units (unknown) date) (Normal Saline unknown) 0.9%) 1,000 mls @ 1,000 mls/hr IV BOLUS ONE (unknown) (no (unknown) (unknown) Source: patient (units (unknown) date) unknown) (unknown) (no (unknown) (unknown) Stated Complaint: (units (unknown) date) AFIB unknown) (unknown) (no (unknown) (unknown) Status post (units (un known) date) dilation and unknown) curettage (unknown) (no (unknown) (unknown) Status post (units (un known) date) hysterectomy unknown) (unknown) (no (unknown) (unknown) Surgical History (units (unknown) date) (Reviewed 05/31/21 unknown) @ 09:15 by Nicki Blank DO) (unknown) (no (unknown) (unknown) Surgical changes (units (unknown) date) and devices:? unknown) None.? (unknown) (no (unknown) (unknown) TECHNIQUE:? One (units (unknown) date) view of the chest unknown) was acquired.? (unknown) (no (unknown) (unknown) Temperature (units (un known) date) unknown) (unknown) (no (unknown) (unknown) Temperature 98.0 (units (unknown) date) F 05/31/21 08:35 unknown) (unknown) (no (unknown) (unknown) Temperature 98.0 (units (unknown) date) F unknown) (unknown) (no (unknown) (unknown) This is a (units (unkno wn) date) 75-year-old female unknown) comes emergency department stating she is in atrial (unknown) (no (unknown) (unknown) Time Seen by (units (u nknown) date) Provider: 05/31/21 unknown) 09:00 (unknown) (no (unknown) (unknown) Total Bilirubin (units (unknown) date) 1.1 (0.2-1.3) unknown) mg/dL (unknown) (no (unknown) (unknown) Total Creatine (units (unknown) date) Kinase 84 unknown) (30-135) U/L (unknown) (no (unknown) (unknown) Total Protein (units ( unknown) date) 8.1 (6.3-8.2) unknown) g/dL (unknown) (no (unknown) (unknown) Troponin + CK (units ( unknown) date) Cardiac Panel Stat unknown) (unknown) (no (unknown) (unknown) Troponin I < (units (unknown) date) 0.012 unknown) (0.01-0.034) ng/mL (unknown) (no (unknown) (unknown) Vital Signs (units (un known) date) unknown) (unknown) (no (unknown) (unknown) Vital signs: (units (u nknown) date) unknown) (unknown) (no (unknown) (unknown) XR chest 1V Stat (units (unknown) date) unknown) (unknown) (no (unknown) (unknown) [Embedded Image (units (unknown) date) Not Available] unknown) (unknown) (no (unknown) (unknown) additional (units (unk nown) date) episode really unknown) give her medication which cardioverted her. And she (unknown) (no (unknown) (unknown) amoxicillin (units (un known) date) [AMOXICILLIN] unknown) Allergy Intermediate Hives Verified 05/31/21 08:57 (unknown) (no (unknown) (unknown) and below (units (unkn own) date) unknown) (unknown) (no (unknown) (unknown) bony lesions.? (units (unknown) date) Overlying soft unknown) tissues appear unremarkable.? (unknown) (no (unknown) (unknown) calcification and (units (unknown) date) tortuosity. unknown) (unknown) (no (unknown) (unknown) codeine AdvReac (units (unknown) date) Hallucinati unknown) Verified 05/31/21 08:58 (unknown) (no (unknown) (unknown) demonstrates (units (u nknown) date) unknown) (unknown) (no (unknown) (unknown) extremities (units (un known) date) unknown) (unknown) (no (unknown) (unknown) fibrillation. (units ( unknown) date) She has had a unknown) history of AFib she is anticoagulated propylene on (unknown) (no (unknown) (unknown) gallops. No JVD. (units (unknown) date) No swelling unknown) bilateral lower extremities. (unknown) (no (unknown) (unknown) guarding or (units (un known) date) rebound, rigidity, unknown) no mass (unknown) (no (unknown) (unknown) had any syncope. (units (unknown) date) No nausea, no unknown) vomiting. No swelling her extremities. She is (unknown) (no (unknown) (unknown) had tonsillectomy (units (unknown) date) and hysterectomy. unknown) No tobacco, occasional alcohol none (unknown) (no (unknown) (unknown) has had 2 episodes (units (unknown) date) where she was able unknown) to switch back to a normal rhythm at home. (unknown) (no (unknown) (unknown) intact (units (unkno wn) date) unknown) (unknown) (no (unknown) (unknown) is Dr. Ornelas. (units (unknown) date) unknown) (unknown) (no (unknown) (unknown) just feels (units (unk nown) date) irregular chills unknown) occasional fluttering. She denies chest pain or (unknown) (no (unknown) (unknown) last night she (units (unknown) date) noticed her heart unknown) irregular, it felt fast at that time but now (unknown) (no (unknown) (unknown) levothyroxine 50 (units (unknown) date) mcg capsule 50 mcg unknown) PO DAILY 04/28/19 04/28/19 (unknown) (no (unknown) (unknown) lisinopril 10 mg (units (unknown) date) tablet 10 mg PO unknown) DAILY 04/28/19 04/28/19 (unknown) (no (unknown) (unknown) medications today (units (unknown) date) except for her unknown) levothyroxine. She has had 1 cardioversion (unknown) (no (unknown) (unknown) metoprolol (units (unk nown) date) tartrate 25 mg unknown) tablet 25 mg PO BID 04/28/19 04/28/19 (unknown) (no (unknown) (unknown) moist mucous (units (u nknown) date) membranes unknown) (unknown) (no (unknown) (unknown) noted. No priors (units (unknown) date) available for unknown) comparison. (unknown) (no (unknown) (unknown) or large pleural (units (unknown) date) effusions are unknown) seen.? No focal infiltrates are seen.? (unknown) (no (unknown) (unknown) pneumothorax (units (u nknown) date) unknown) (unknown) (no (unknown) (unknown) pressure or (units (un known) date) shortness of unknown) breath. She has been mildly lightheaded but has not (unknown) (no (unknown) (unknown) recently, no (units (u nknown) date) illicit. Her unknown) primary care doctors Dr. Aguiar and her medical social worker (unknown) (no (unknown) (unknown) rivaroxaban 20 mg (units (unknown) date) tablet (Xarelto) unknown) 20 mg PO DAILY 04/28/19 04/28/19 (unknown) (no (unknown) (unknown) rivaroxaban [From (units (unknown) date) Xarelto] AdvReac unknown) Verified 05/31/21 08:58 (unknown) (no (unknown) (unknown) scheduled for an (units (unknown) date) ablation in August unknown) of 2021. Patient states that she is on (unknown) (no (unknown) (unknown) simvastatin 20 mg (units (unknown) date) tablet (Zocor) 20 unknown) mg PO QPM 04/28/19 04/28/19 (unknown) (no (unknown) (unknown) suspicious (units (unk nown) date) unknown) (unknown) (no (unknown) (unknown) tachypnea (units (unkn own) date) accessory muscle unknown) use. (unknown) (no (unknown) (unknown) where she received (units (unknown) date) medication and an unknown) electrical shock at would be ER. She had 1 Result panel 9 (unknown) (no date) (unknown) (unknown) Negative (units (unkn own) unknown) Result panel 10 (unknown) (no (unknown) (unknown) (no value) (units (unk nown) date) unknown) (unknown) (no (unknown) (unknown) Radiologist's (units ( unknown) date) Impression: unknown) (unknown) (no (unknown) (unknown) (no value) (units (unk nown) date) unknown) (unknown) (no (unknown) (unknown) Date of Service: (units (unknown) date) 05/31/21 unknown) (unknown) (no (unknown) (unknown) (no value) (units (unk nown) date) unknown) (unknown) (no (unknown) (unknown) 05/31/21 08:45 (units (unknown) date) unknown) (unknown) (no (unknown) (unknown) 10 mg PO DAILY (units (unknown) date) 0RF unknown) (unknown) (no (unknown) (unknown) [address] [place] [address] (units (unknown) date) unknown) (unknown) (no (unknown) (unknown) 20 mg PO DAILY (units (unknown) date) 0RF unknown) (unknown) (no (unknown) (unknown) 20 mg PO QPM 0RF (units (unknown) date) unknown) (unknown) (no (unknown) (unknown) 25 mg PO BID 0RF (units (unknown) date) unknown) (unknown) (no (unknown) (unknown) 50 mcg PO DAILY (units (unknown) date) 0RF unknown) (unknown) (no (unknown) (unknown) Allergies (units (unkn own) date) unknown) (unknown) (no (unknown) (unknown) MARY iSerra (units ( unknown) date) [id number] unknown) (unknown) (no (unknown) (unknown) Documented by: (units (unknown) date) NRHOADS unknown) (unknown) (no (unknown) (unknown) ED Orders (units (unkn own) date) unknown) (unknown) (no (unknown) (unknown) Emergency Report (units (unknown) date) unknown) (unknown) (no (unknown) (unknown) Home Medications (units (unknown) date) unknown) (unknown) (no (unknown) (unknown) Hypertension (units (u nknown) date) unknown) (unknown) (no (unknown) (unknown) [facility] (units (unknown) date) unknown) (unknown) (no (unknown) (unknown) [facility] (units (unknown) date) [address] [place] [address] unknown) [place] [id number] (unknown) (no (unknown) (unknown) Lab Results (units (un known) date) unknown) (unknown) (no (unknown) (unknown) Last Admin: (units (un known) date) 05/31/21 09:19 unknown) Dose: 1,000 mls/hr (unknown) (no (unknown) (unknown) Launch?Image (units (u nknown) date) unknown) (unknown) (no (unknown) (unknown) Signed (units (unkno wn) date) unknown) (unknown) (no (unknown) (unknown) Stop: 05/31/21 (units (unknown) date) 10:13 unknown) (unknown) (no (unknown) (unknown) Vital Signs - 8 (units (unknown) date) hr unknown) (unknown) (no (unknown) (unknown) XRay Report (units (un known) date) unknown) (unknown) (no (unknown) (unknown) ng (units (unkno wn) date) unknown) (unknown) (no (unknown) (unknown) (no value) (units (unk nown) date) unknown) (unknown) (no (unknown) (unknown) 05/31/21 05/31/21 (units (unknown) date) 05/31/21 unknown) Range/Units (unknown) (no (unknown) (unknown) 08:45 08:45 09:20 (units (unknown) date) unknown) (unknown) (no (unknown) (unknown) Xarelto 20 mg (units ( unknown) date) tablet unknown) (unknown) (no (unknown) (unknown) levothyroxine 50 (units (unknown) date) mcg capsule unknown) (unknown) (no (unknown) (unknown) lisinopril 10 mg (units (unknown) date) tablet unknown) (unknown) (no (unknown) (unknown) metoprolol (units (unk nown) date) tartrate 25 mg unknown) tablet (unknown) (no (unknown) (unknown) simvastatin (units (un known) date) [Zocor] 20 mg unknown) tablet (unknown) (no (unknown) (unknown) 05/31/21 (units (unkno wn) date) unknown) (unknown) (no (unknown) (unknown) Medication (units (unk nown) date) Instructions unknown) Recorded Confirmed (unknown) (no (unknown) (unknown) She has not had (units (unknown) date) any prior cardiac unknown) interventions no stents or ablation. She has (unknown) (no (unknown) (unknown) 05/31/21 08:45 (units (unknown) date) unknown) (unknown) (no (unknown) (unknown) 05/31/21 08:51 (units (unknown) date) unknown) (unknown) (no (unknown) (unknown) 05/31/21 09:20 (units (unknown) date) unknown) (unknown) (no (unknown) (unknown) 08:35 05/31/21 (units (unknown) date) unknown) (unknown) (no (unknown) (unknown) 08:45 05/31/21 (units (unknown) date) unknown) (unknown) (no (unknown) (unknown) 09:00 (units (unkno wn) date) unknown) (unknown) (no (unknown) (unknown) 09:01 (units (unkno wn) date) unknown) (unknown) (no (unknown) (unknown) [id number] (units (unkno wn) date) unknown) (unknown) (no (unknown) (unknown) ? (units (unkno wn) date) unknown) (unknown) (no (unknown) (unknown) ABDOMEN: Soft, (units (unknown) date) nontender. unknown) Normoactive bowel sounds all 4 quadrants. No (unknown) (no (unknown) (unknown) AFib with rate of (units (unknown) date) 76 QRS 82 and QTC unknown) of 425. No acute ST elevation depression (unknown) (no (unknown) (unknown) ALT 28 (<35) (units (unknown) date) IU/L unknown) (unknown) (no (unknown) (unknown) AST 37 H (units (unk nown) date) (14-36) IU/L unknown) (unknown) (no (unknown) (unknown) Accession Number: (units (unknown) date) [id number] ?? unknown) (unknown) (no (unknown) (unknown) Acct:[id number] (units (unknown) date) unknown) (unknown) (no (unknown) (unknown) Age/Sex: 75 / F (units (unknown) date) unknown) (unknown) (no (unknown) (unknown) Age/Sex: 75 / F (units (unknown) date) unknown) (unknown) (no (unknown) (unknown) Albumin 4.7 (units ( unknown) date) (3.5-5.0) g/dL unknown) (unknown) (no (unknown) (unknown) Albumin/Globulin (units (unknown) date) Ratio 1.4 unknown) (1.0-2.8) (unknown) (no (unknown) (unknown) Alkaline (units (unkno wn) date) Phosphatase 75 unknown) (38-126) U/L (unknown) (no (unknown) (unknown) Allergy/AdvReac (units (unknown) date) Type Severity unknown) Reaction Status Date / Time (unknown) (no (unknown) (unknown) Approved by: (units (u nknown) date) Mark Anthony Rodriguez, unknownRegina Crane on 05/31/2021 at 8:13?? (unknown) (no (unknown) (unknown) Attestation: I (units (unknown) date) personally unknown) reviewed and interpreted this ECG as follows: (unknown) (no (unknown) (unknown) BUN 13 (7-17) (units (unknown) date) mg/dL unknown) (unknown) (no (unknown) (unknown) BUN/Creatinine (units (unknown) date) Ratio 20.3 unknown) (6-22) (unknown) (no (unknown) (unknown) Baso # (Auto) 0 (units (unknown) date) (0-100) /uL unknown) (unknown) (no (unknown) (unknown) Baso % (Auto) (units ( unknown) date) 0.5 (0-2) % unknown) (unknown) (no (unknown) (unknown) Blood Pressure (units (unknown) date) 199/95 H 05/31/21 unknown) 08:35 (unknown) (no (unknown) (unknown) Blood Pressure (units (unknown) date) 141/85 H unknown) (unknown) (no (unknown) (unknown) Blood Pressure (units (unknown) date) 199/95 H unknown) (unknown) (no (unknown) (unknown) Bones and chest (units (unknown) date) wall:? unknown) Age-appropriate bony degenerative changes are seen.? No (unknown) (no (unknown) (unknown) CARDIOVASCULAR: (units (unknown) date) Irregularly unknown) irregular rate and rhythm without murmurs, rubs or (unknown) (no (unknown) (unknown) CK-MB (CK-2) (units (u nknown) date) TNP unknown) (unknown) (no (unknown) (unknown) CK-MB (CK-2) Rel (units (unknown) date) Index TNP unknown) (unknown) (no (unknown) (unknown) COMPARISON:? (units (u nknown) date) None. unknown) (unknown) (no (unknown) (unknown) COVID19 -Nasal (units (unknown) date) swab/Pre-Proc Stat unknown) (unknown) (no (unknown) (unknown) Calcium 9.4 (units ( unknown) date) (8.4-10.2) mg/dL unknown) (unknown) (no (unknown) (unknown) Carbon Dioxide (units (unknown) date) 28 (22-32) unknown) mmol/L (unknown) (no (unknown) (unknown) Chest x-ray: (units (u nknown) date) unknown) (unknown) (no (unknown) (unknown) Chief Complaint: (units (unknown) date) Chest Pain unknown) (unknown) (no (unknown) (unknown) Chloride 101 (units (unknown) date) (98-107) mmol/L unknown) (unknown) (no (unknown) (unknown) Complete Blood (units (unknown) date) Count AUTO DIFF unknown) Stat (unknown) (no (unknown) (unknown) Comprehensive (units ( unknown) date) Metabolic Panel unknown) Stat (unknown) (no (unknown) (unknown) Course (units (unkno wn) date) unknown) (unknown) (no (unknown) (unknown) Creatinine 0.64 (units (unknown) date) (0.52-1.04) unknown) mg/dL (unknown) (no (unknown) (unknown) : 1945 (units (unknown) date) Acct:[id number] unknown) (unknown) (no (unknown) (unknown) : 1945 (units (unknown) date) unknown) (unknown) (no (unknown) (unknown) Date of Service: (units (unknown) date) 05/31/21 unknown) (unknown) (no (unknown) (unknown) Departure (units (unkn own) date) unknown) (unknown) (no (unknown) (unknown) Dictated by: (units (u nknown) date) darren Pollack M.D. on 05/31/2021 at 8:13 ? ? (unknown) (no (unknown) (unknown) Discharge Plan (units (unknown) date) unknown) (unknown) (no (unknown) (unknown) Discontinued (units (u nknown) date) Medications unknown) (unknown) (no (unknown) (unknown) ECG Data (units (unkno wn) date) unknown) (unknown) (no (unknown) (unknown) EKG-12 Lead Stat (units (unknown) date) unknown) (unknown) (no (unknown) (unknown) ER Physician: (units ( unknown) date) Nicki Blank D.O. unknown) (unknown) (no (unknown) (unknown) EXTREMITIES: (units (u nknown) date) Normal range of unknown) motion, no clubbing or edema. Neurovascularly (unknown) (no (unknown) (unknown) Eos # (Auto) 100 (units (unknown) date) (0-450) /uL unknown) (unknown) (no (unknown) (unknown) Eos % (Auto) 1.6 (units (unknown) date) L (2-4) % unknown) (unknown) (no (unknown) (unknown) Estimated GFR > (units (unknown) date) 60.0 (>60) unknown) mL/min (unknown) (no (unknown) (unknown) Exam (units (unkno wn) date) unknown) (unknown) (no (unknown) (unknown) Exam Narrative: (units (unknown) date) unknown) (unknown) (no (unknown) (unknown) FINDINGS:? (units (unk nown) date) unknown) (unknown) (no (unknown) (unknown) Family History (units (unknown) date) (Reviewed 05/31/21 unknown) @ 09:15 by Nicki Blank DO) (unknown) (no (unknown) (unknown) Family/Other (units (u nknown) date) Restless leg unknown) syndrome (unknown) (no (unknown) (unknown) Father (units (unkno wn) date) Hypertension unknown) (unknown) (no (unknown) (unknown) GENERAL: Alert (units (unknown) date) and oriented x unknown) three, female mild distress. (unknown) (no (unknown) (unknown) : No CVA (units (unk nown) date) tenderness unknown) (unknown) (no (unknown) (unknown) General (units (unkno wn) date) unknown) (unknown) (no (unknown) (unknown) GenericComposite[ (units (unknown) date) Plt Count 233 unknown) (150-400) X10^3/uL ] (unknown) (no (unknown) (unknown) GenericComposite[ (units (unknown) date) RBC 5.29 H unknown) (4.0-5.2) X10^6/uL ] (unknown) (no (unknown) (unknown) GenericComposite[ (units (unknown) date) WBC 5.9 unknown) (4.5-11.0) X10^3/uL ] (unknown) (no (unknown) (unknown) Globulin 3.4 (units (unknown) date) (1.7-4.1) g/dL unknown) (unknown) (no (unknown) (unknown) Glucose 136 H (units (unknown) date) (80-110) mg/dL unknown) (unknown) (no (unknown) (unknown) Grandmother (units (un known) date) Heart disease unknown) (unknown) (no (unknown) (unknown) HEENT: Head (units (un known) date) normocephalic, unknown) atraumatic, EOMI, pupils reactive, face symmetric, (unknown) (no (unknown) (unknown) HPI - Chest Pain (units (unknown) date) unknown) (unknown) (no (unknown) (unknown) HPI narrative: (units (unknown) date) unknown) (unknown) (no (unknown) (unknown) Hct 47.5 H (units (un known) date) (36-46) % unknown) (unknown) (no (unknown) (unknown) Hgb 16.2 H (units (un known) date) (12.0-16.0) g/dL unknown) (unknown) (no (unknown) (unknown) History of (units (unk nown) date) Present Illness unknown) (unknown) (no (unknown) (unknown) History of (units (unk nown) date) tonsillectomy unknown) (unknown) (no (unknown) (unknown) IMPRESSION:? (units (u nknown) date) Unremarkable unknown) portable chest study age.? (unknown) (no (unknown) (unknown) INDICATIONS:? (units ( unknown) date) chest pain unknown) (unknown) (no (unknown) (unknown) Imaging Data (units (u nknown) date) unknown) (unknown) (no (unknown) (unknown) Initial Vital (units ( unknown) date) Signs unknown) (unknown) (no (unknown) (unknown) Initial Vital (units ( unknown) date) Signs: unknown) (unknown) (no (unknown) (unknown) Interpretation: (units (unknown) date) unknown) (unknown) (no (unknown) (unknown) Jaime Aguiar MD (units (unknown) date) [Primary Care unknown) Provider] - (unknown) (no (unknown) (unknown) Lab Data (units (unkno wn) date) unknown) (unknown) (no (unknown) (unknown) Labs: (units (unkno wn) date) unknown) (unknown) (no (unknown) (unknown) Limitations: no (units (unknown) date) limitations unknown) (unknown) (no (unknown) (unknown) Lipase 69 (units (un known) date) (23-300) U/L unknown) (unknown) (no (unknown) (unknown) Lipase Stat (units (un known) date) unknown) (unknown) (no (unknown) (unknown) Loc: ED (units (unkno wn) date) unknown) (unknown) (no (unknown) (unknown) Lungs and (units (unkn own) date) pleura:? On this unknown) semiupright portable chest examination, no large (unknown) (no (unknown) (unknown) Lymph # (Auto) (units (unknown) date) 2700 unknown) (4575-0960) /uL (unknown) (no (unknown) (unknown) Lymph % (Auto) (units (unknown) date) 46.1 H (25-40) unknown) % (unknown) (no (unknown) (unknown) MCH 30.7 (units (unkn own) date) (26-34) PG unknown) (unknown) (no (unknown) (unknown) MCHC 34.1 (units (unk nown) date) (30-36) % unknown) (unknown) (no (unknown) (unknown) MCV 89.8 (units (unkn own) date) (80-100) fL unknown) (unknown) (no (unknown) (unknown) MDM - Chest Pain (units (unknown) date) unknown) (unknown) (no (unknown) (unknown) MR#: [id number] (units (unknown) date) unknown) (unknown) (no (unknown) (unknown) Magnesium 2.2 (units (unknown) date) (1.6-2.3) mg/dL unknown) (unknown) (no (unknown) (unknown) Magnesium Stat (units (unknown) date) unknown) (unknown) (no (unknown) (unknown) Mediastinum:? The (units (unknown) date) cardiac contours unknown) are within normal limits. The aorta (unknown) (no (unknown) (unknown) [place] # (Auto) (units ( unknown) date) 500 (0-900) unknown) /uL (unknown) (no (unknown) (unknown) [place] % (Auto) (units ( unknown) date) 8.5 (3-14) % unknown) (unknown) (no (unknown) (unknown) NECK: Supple, (units ( unknown) date) full range of unknown) motion (unknown) (no (unknown) (unknown) NEUROLOGICAL: (units ( unknown) date) Cranial nerves II unknown) through XII grossly intact. Moving all (unknown) (no (unknown) (unknown) Narrative (units (unkn own) date) unknown) (unknown) (no (unknown) (unknown) Neut # (Auto) (units ( unknown) date) 2500 unknown) (6561-6350) /uL (unknown) (no (unknown) (unknown) Neut % (Auto) (units ( unknown) date) 43.3 L (50-75) unknown) % (unknown) (no (unknown) (unknown) No Action (units (unkn own) date) unknown) (unknown) (no (unknown) (unknown) Ordered: (units (unkno wn) date) unknown) (unknown) (no (unknown) (unknown) Ordering (units (unkno wn) date) Provider: unknown) Nicki Blank D.O. (unknown) (no (unknown) (unknown) Orders (units (unkno wn) date) unknown) (unknown) (no (unknown) (unknown) PROCEDURE:? XR (units (unknown) date) CHEST 1V unknown) (unknown) (no (unknown) (unknown) Patient History (units (unknown) date) unknown) (unknown) (no (unknown) (unknown) Patient: (units (unkno wn) date) Demetra Mota unknown) MR#: [id number] (unknown) (no (unknown) (unknown) Patient: (units (unkno wn) date) Demetra Mota unknown) (unknown) (no (unknown) (unknown) Potassium 4.3 (units (unknown) date) (3.4-5.1) mmol/L unknown) (unknown) (no (unknown) (unknown) Pradaxa which he (units (unknown) date) takes twice daily. unknown) She denies missing any doses. She states (unknown) (no (unknown) (unknown) Pradaxa, (units (unkno wn) date) lisinopril, unknown) sotalol and levothyroxine. She has had all of her (unknown) (no (unknown) (unknown) Prescriptions: (units (unknown) date) unknown) (unknown) (no (unknown) (unknown) Prior ECG (units (unkn own) date) tracings: not unknown) available for review (unknown) (no (unknown) (unknown) Procedure: XR (units ( unknown) date) chest 1V unknown) (unknown) (no (unknown) (unknown) Pulse Oximetry (units (unknown) date) 98 05/31/21 unknown) 08:35 (unknown) (no (unknown) (unknown) Pulse Oximetry 96 (units (unknown) date) unknown) (unknown) (no (unknown) (unknown) Pulse Oximetry 98 (units (unknown) date) 99 97 unknown) (unknown) (no (unknown) (unknown) Pulse Rate 112 H (units (unknown) date) 05/31/21 08:35 unknown) (unknown) (no (unknown) (unknown) Pulse Rate 112 H (units (unknown) date) 86 82 unknown) (unknown) (no (unknown) (unknown) Pulse Rate 88 (units ( unknown) date) unknown) (unknown) (no (unknown) (unknown) RDW 13.0 (units (unkn own) date) (11.6-14.8) % unknown) (unknown) (no (unknown) (unknown) RESPIRATORY: (units (u nknown) date) Breath sounds unknown) equal bilaterally, no wheezes rales or rhonchi. No (unknown) (no (unknown) (unknown) ROS Unobtainable: (units (unknown) date) All systems unknown) reviewed + are unremarkable except as noted in HPI (unknown) (no (unknown) (unknown) Referrals: (units (unk nown) date) unknown) (unknown) (no (unknown) (unknown) Related Data (units (u nknown) date) unknown) (unknown) (no (unknown) (unknown) Respiratory Rate (units (unknown) date) 20 05/31/21 unknown) 08:35 (unknown) (no (unknown) (unknown) Respiratory Rate (units (unknown) date) 20 35 H 32 H unknown) (unknown) (no (unknown) (unknown) Respiratory Rate (units (unknown) date) 36 H unknown) (unknown) (no (unknown) (unknown) Result diagrams: (units (unknown) date) unknown) (unknown) (no (unknown) (unknown) Review of Systems (units (unknown) date) unknown) (unknown) (no (unknown) (unknown) SARS-CoV-2 (PCR) (units (unknown) date) Negative unknown) (Negative) (unknown) (no (unknown) (unknown) SKIN: Warm, dry, (units (unknown) date) no petechiae, no unknown) rashes or lesions. (unknown) (no (unknown) (unknown) Signed By: (units (unk nown) date) unknown) (unknown) (no (unknown) (unknown) Smoking Status: (units (unknown) date) Never smoker unknown) (unknown) (no (unknown) (unknown) Smoking Status: (units (unknown) date) Never smoker unknown) (unknown) (no (unknown) (unknown) Social History (units (unknown) date) (Reviewed 05/31/21 unknown) @ 09:15 by Nicki Blank DO) (unknown) (no (unknown) (unknown) Sodium 138 (units (u nknown) date) (137-145) mmol/L unknown) (unknown) (no (unknown) (unknown) Sodium Chloride (units (unknown) date) (Normal Saline unknown) 0.9%) 1,000 mls @ 1,000 mls/hr IV BOLUS ONE (unknown) (no (unknown) (unknown) Source: patient (units (unknown) date) unknown) (unknown) (no (unknown) (unknown) Stated Complaint: (units (unknown) date) AFIB unknown) (unknown) (no (unknown) (unknown) Status post (units (un known) date) dilation and unknown) curettage (unknown) (no (unknown) (unknown) Status post (units (un known) date) hysterectomy unknown) (unknown) (no (unknown) (unknown) Surgical History (units (unknown) date) (Reviewed 05/31/21 unknown) @ 09:15 by Nicki Blank DO) (unknown) (no (unknown) (unknown) Surgical changes (units (unknown) date) and devices:? unknown) None.? (unknown) (no (unknown) (unknown) TECHNIQUE:? One (units (unknown) date) view of the chest unknown) was acquired.? (unknown) (no (unknown) (unknown) Temperature (units (un known) date) unknown) (unknown) (no (unknown) (unknown) Temperature 98.0 (units (unknown) date) F 05/31/21 08:35 unknown) (unknown) (no (unknown) (unknown) Temperature 98.0 (units (unknown) date) F unknown) (unknown) (no (unknown) (unknown) This is a (units (unkno wn) date) 75-year-old female unknown) comes emergency department stating she is in atrial (unknown) (no (unknown) (unknown) Time Seen by (units (u nknown) date) Provider: 05/31/21 unknown) 09:00 (unknown) (no (unknown) (unknown) Total Bilirubin (units (unknown) date) 1.1 (0.2-1.3) unknown) mg/dL (unknown) (no (unknown) (unknown) Total Creatine (units (unknown) date) Kinase 84 unknown) (30-135) U/L (unknown) (no (unknown) (unknown) Total Protein (units ( unknown) date) 8.1 (6.3-8.2) unknown) g/dL (unknown) (no (unknown) (unknown) Troponin + CK (units ( unknown) date) Cardiac Panel Stat unknown) (unknown) (no (unknown) (unknown) Troponin I < (units (unknown) date) 0.012 unknown) (0.01-0.034) ng/mL (unknown) (no (unknown) (unknown) Vital Signs (units (un known) date) unknown) (unknown) (no (unknown) (unknown) Vital signs: (units (u nknown) date) unknown) (unknown) (no (unknown) (unknown) XR chest 1V Stat (units (unknown) date) unknown) (unknown) (no (unknown) (unknown) [Embedded Image (units (unknown) date) Not Available] unknown) (unknown) (no (unknown) (unknown) additional (units (unk nown) date) episode really unknown) give her medication which cardioverted her. And she (unknown) (no (unknown) (unknown) amoxicillin (units (un known) date) [AMOXICILLIN] unknown) Allergy Intermediate Hives Verified 05/31/21 08:57 (unknown) (no (unknown) (unknown) and below (units (unkn own) date) unknown) (unknown) (no (unknown) (unknown) bony lesions.? (units (unknown) date) Overlying soft unknown) tissues appear unremarkable.? (unknown) (no (unknown) (unknown) calcification and (units (unknown) date) tortuosity. unknown) (unknown) (no (unknown) (unknown) codeine AdvReac (units (unknown) date) Hallucinati unknown) Verified 05/31/21 08:58 (unknown) (no (unknown) (unknown) demonstrates (units (u nknown) date) unknown) (unknown) (no (unknown) (unknown) extremities (units (un known) date) unknown) (unknown) (no (unknown) (unknown) fibrillation. (units ( unknown) date) She has had a unknown) history of AFib she is anticoagulated propylene on (unknown) (no (unknown) (unknown) gallops. No JVD. (units (unknown) date) No swelling unknown) bilateral lower extremities. (unknown) (no (unknown) (unknown) guarding or (units (un known) date) rebound, rigidity, unknown) no mass (unknown) (no (unknown) (unknown) had any syncope. (units (unknown) date) No nausea, no unknown) vomiting. No swelling her extremities. She is (unknown) (no (unknown) (unknown) had tonsillectomy (units (unknown) date) and hysterectomy. unknown) No tobacco, occasional alcohol none (unknown) (no (unknown) (unknown) has had 2 episodes (units (unknown) date) where she was able unknown) to switch back to a normal rhythm at home. (unknown) (no (unknown) (unknown) intact (units (unkno wn) date) unknown) (unknown) (no (unknown) (unknown) is Dr. Ornelas. (units (unknown) date) unknown) (unknown) (no (unknown) (unknown) just feels (units (unk nown) date) irregular chills unknown) occasional fluttering. She denies chest pain or (unknown) (no (unknown) (unknown) last night she (units (unknown) date) noticed her heart unknown) irregular, it felt fast at that time but now (unknown) (no (unknown) (unknown) levothyroxine 50 (units (unknown) date) mcg capsule 50 mcg unknown) PO DAILY 04/28/19 04/28/19 (unknown) (no (unknown) (unknown) lisinopril 10 mg (units (unknown) date) tablet 10 mg PO unknown) DAILY 04/28/19 04/28/19 (unknown) (no (unknown) (unknown) medications today (units (unknown) date) except for her unknown) levothyroxine. She has had 1 cardioversion (unknown) (no (unknown) (unknown) metoprolol (units (unk nown) date) tartrate 25 mg unknown) tablet 25 mg PO BID 04/28/19 04/28/19 (unknown) (no (unknown) (unknown) moist mucous (units (u nknown) date) membranes unknown) (unknown) (no (unknown) (unknown) noted. No priors (units (unknown) date) available for unknown) comparison. (unknown) (no (unknown) (unknown) or large pleural (units (unknown) date) effusions are unknown) seen.? No focal infiltrates are seen.? (unknown) (no (unknown) (unknown) pneumothorax (units (u nknown) date) unknown) (unknown) (no (unknown) (unknown) pressure or (units (un known) date) shortness of unknown) breath. She has been mildly lightheaded but has not (unknown) (no (unknown) (unknown) recently, no (units (u nknown) date) illicit. Her unknown) primary care doctors Dr. Aguiar and her medical social worker (unknown) (no (unknown) (unknown) rivaroxaban 20 mg (units (unknown) date) tablet (Xarelto) unknown) 20 mg PO DAILY 04/28/19 04/28/19 (unknown) (no (unknown) (unknown) rivaroxaban [From (units (unknown) date) Xarelto] AdvReac unknown) Verified 05/31/21 08:58 (unknown) (no (unknown) (unknown) scheduled for an (units (unknown) date) ablation in August unknown) of 2021. Patient states that she is on (unknown) (no (unknown) (unknown) simvastatin 20 mg (units (unknown) date) tablet (Zocor) 20 unknown) mg PO QPM 04/28/19 04/28/19 (unknown) (no (unknown) (unknown) suspicious (units (unk nown) date) unknown) (unknown) (no (unknown) (unknown) tachypnea (units (unkn own) date) accessory muscle unknown) use. (unknown) (no (unknown) (unknown) where she received (units (unknown) date) medication and an unknown) electrical shock at would be ER. She had 1 Result panel 11 (unknown) (no (unknown) (unknown) (no value) (units (unk nown) date) unknown) (unknown) (no (unknown) (unknown) Radiologist's (units ( unknown) date) Impression: unknown) (unknown) (no (unknown) (unknown) (no value) (units (unk nown) date) unknown) (unknown) (no (unknown) (unknown) Date of Service: (units (unknown) date) 05/31/21 unknown) (unknown) (no (unknown) (unknown) (no value) (units (unk nown) date) unknown) (unknown) (no (unknown) (unknown) 05/31/21 08:45 (units (unknown) date) unknown) (unknown) (no (unknown) (unknown) 10 mg PO DAILY (units (unknown) date) 0RF unknown) (unknown) (no (unknown) (unknown) [address] (units (unknown) date) unknown) (unknown) (no (unknown) (unknown) 20 mg PO DAILY (units (unknown) date) 0RF unknown) (unknown) (no (unknown) (unknown) 20 mg PO QPM 0RF (units (unknown) date) unknown) (unknown) (no (unknown) (unknown) 25 mg PO BID 0RF (units (unknown) date) unknown) (unknown) (no (unknown) (unknown) 50 mcg PO DAILY (units (unknown) date) 0RF unknown) (unknown) (no (unknown) (unknown) Allergies (units (unkn own) date) unknown) (unknown) (no (unknown) (unknown) Mariela MD (units ( unknown) date) [id number] unknown) (unknown) (no (unknown) (unknown) Documented by: (units (unknown) date) NRHOADS unknown) (unknown) (no (unknown) (unknown) ED Orders (units (unkn own) date) unknown) (unknown) (no (unknown) (unknown) Emergency Report (units (unknown) date) unknown) (unknown) (no (unknown) (unknown) Home Medications (units (unknown) date) unknown) (unknown) (no (unknown) (unknown) Hypertension (units (u nknown) date) unknown) (unknown) (no (unknown) (unknown) [facility] (units (unknown) date) unknown) (unknown) (no (unknown) (unknown) [facility] (units (unknown) date) [address] [place] [address] unknown) [place] [id number] (unknown) (no (unknown) (unknown) Lab Results (units (un known) date) unknown) (unknown) (no (unknown) (unknown) Last Admin: (units (un known) date) 05/31/21 09:19 unknown) Dose: 1,000 mls/hr (unknown) (no (unknown) (unknown) Launch?Image (units (u nknown) date) unknown) (unknown) (no (unknown) (unknown) Signed (units (unkno wn) date) unknown) (unknown) (no (unknown) (unknown) Stop: 05/31/21 (units (unknown) date) 10:13 unknown) (unknown) (no (unknown) (unknown) Vital Signs - 8 (units (unknown) date) hr unknown) (unknown) (no (unknown) (unknown) XRay Report (units (un known) date) unknown) (unknown) (no (unknown) (unknown) ng (units (unkno wn) date) unknown) (unknown) (no (unknown) (unknown) (no value) (units (unk nown) date) unknown) (unknown) (no (unknown) (unknown) 05/31/21 05/31/21 (units (unknown) date) 05/31/21 unknown) Range/Units (unknown) (no (unknown) (unknown) 08:45 08:45 09:20 (units (unknown) date) unknown) (unknown) (no (unknown) (unknown) Xarelto 20 mg (units ( unknown) date) tablet unknown) (unknown) (no (unknown) (unknown) levothyroxine 50 (units (unknown) date) mcg capsule unknown) (unknown) (no (unknown) (unknown) lisinopril 10 mg (units (unknown) date) tablet unknown) (unknown) (no (unknown) (unknown) metoprolol (units (unk nown) date) tartrate 25 mg unknown) tablet (unknown) (no (unknown) (unknown) simvastatin (units (un known) date) [Zocor] 20 mg unknown) tablet (unknown) (no (unknown) (unknown) 05/31/21 (units (unkno wn) date) unknown) (unknown) (no (unknown) (unknown) Atrial (units (unkno wn) date) fibrillation unknown) (unknown) (no (unknown) (unknown) Medication (units (unk nown) date) Instructions unknown) Recorded Confirmed (unknown) (no (unknown) (unknown) She has not had (units (unknown) date) any prior cardiac unknown) interventions no stents or ablation. She has (unknown) (no (unknown) (unknown) appropriate, EKG (units (unknown) date) and chest x-ray. unknown) Discussed with patient she has had a (unknown) (no (unknown) (unknown) 05/31/21 08:45 (units (unknown) date) unknown) (unknown) (no (unknown) (unknown) 05/31/21 08:51 (units (unknown) date) unknown) (unknown) (no (unknown) (unknown) 05/31/21 09:20 (units (unknown) date) unknown) (unknown) (no (unknown) (unknown) 08:35 05/31/21 (units (unknown) date) unknown) (unknown) (no (unknown) (unknown) 08:45 05/31/21 (units (unknown) date) unknown) (unknown) (no (unknown) (unknown) 09:00 (units (unkno wn) date) unknown) (unknown) (no (unknown) (unknown) 09:01 (units (unkno wn) date) unknown) (unknown) (no (unknown) (unknown) [id number] (units (unkno wn) date) unknown) (unknown) (no (unknown) (unknown) ? (units (unkno wn) date) unknown) (unknown) (no (unknown) (unknown) ABDOMEN: Soft, (units (unknown) date) nontender. unknown) Normoactive bowel sounds all 4 quadrants. No (unknown) (no (unknown) (unknown) AFib with rate of (units (unknown) date) 76 QRS 82 and QTC unknown) of 425. No acute ST elevation depression (unknown) (no (unknown) (unknown) ALT 28 (<35) (units (unknown) date) IU/L unknown) (unknown) (no (unknown) (unknown) AST 37 H (units (unk nown) date) (14-36) IU/L unknown) (unknown) (no (unknown) (unknown) Accession Number: (units (unknown) date) [id number] ?? unknown) (unknown) (no (unknown) (unknown) Acct:[id number] (units (unknown) date) unknown) (unknown) (no (unknown) (unknown) Activity (units (unkno wn) date) Restrictions/Addit unknown) ional Instructions: (unknown) (no (unknown) (unknown) Age/Sex: 75 / F (units (unknown) date) unknown) (unknown) (no (unknown) (unknown) Age/Sex: 75 / F (units (unknown) date) unknown) (unknown) (no (unknown) (unknown) Albumin 4.7 (units ( unknown) date) (3.5-5.0) g/dL unknown) (unknown) (no (unknown) (unknown) Albumin/Globulin (units (unknown) date) Ratio 1.4 unknown) (1.0-2.8) (unknown) (no (unknown) (unknown) Alkaline (units (unkno wn) date) Phosphatase 75 unknown) (38-126) U/L (unknown) (no (unknown) (unknown) Allergy/AdvReac (units (unknown) date) Type Severity unknown) Reaction Status Date / Time (unknown) (no (unknown) (unknown) Approved by: (units (u nknown) date) Mark Anthony Rodriguez unknownRegina Crane on 05/31/2021 at 8:13?? (unknown) (no (unknown) (unknown) Attestation: I (units (unknown) date) personally unknown) reviewed and interpreted this ECG as follows: (unknown) (no (unknown) (unknown) BUN 13 (7-17) (units (unknown) date) mg/dL unknown) (unknown) (no (unknown) (unknown) BUN/Creatinine (units (unknown) date) Ratio 20.3 unknown) (6-22) (unknown) (no (unknown) (unknown) Baso # (Auto) 0 (units (unknown) date) (0-100) /uL unknown) (unknown) (no (unknown) (unknown) Baso % (Auto) (units ( unknown) date) 0.5 (0-2) % unknown) (unknown) (no (unknown) (unknown) Blood Pressure (units (unknown) date) 199/95 H 05/31/21 unknown) 08:35 (unknown) (no (unknown) (unknown) Blood Pressure (units (unknown) date) 141/85 H unknown) (unknown) (no (unknown) (unknown) Blood Pressure (units (unknown) date) 199/95 H unknown) (unknown) (no (unknown) (unknown) Bones and chest (units (unknown) date) wall:? unknown) Age-appropriate bony degenerative changes are seen.? No (unknown) (no (unknown) (unknown) CARDIOVASCULAR: (units (unknown) date) Irregularly unknown) irregular rate and rhythm without murmurs, rubs or (unknown) (no (unknown) (unknown) CK-MB (CK-2) (units (u nknown) date) TNP unknown) (unknown) (no (unknown) (unknown) CK-MB (CK-2) Rel (units (unknown) date) Index TNP unknown) (unknown) (no (unknown) (unknown) COMPARISON:? (units (u nknown) date) None. unknown) (unknown) (no (unknown) (unknown) COVID19 -Nasal (units (unknown) date) swab/Pre-Proc Stat unknown) (unknown) (no (unknown) (unknown) Calcium 9.4 (units ( unknown) date) (8.4-10.2) mg/dL unknown) (unknown) (no (unknown) (unknown) Carbon Dioxide (units (unknown) date) 28 (22-32) unknown) mmol/L (unknown) (no (unknown) (unknown) Chest x-ray: (units (u nknown) date) unknown) (unknown) (no (unknown) (unknown) Chief Complaint: (units (unknown) date) Chest Pain unknown) (unknown) (no (unknown) (unknown) Chloride 101 (units (unknown) date) (98-107) mmol/L unknown) (unknown) (no (unknown) (unknown) Clinical (units (unkno wn) date) Impression: unknown) (unknown) (no (unknown) (unknown) Complete Blood (units (unknown) date) Count AUTO DIFF unknown) Stat (unknown) (no (unknown) (unknown) Comprehensive (units ( unknown) date) Metabolic Panel unknown) Stat (unknown) (no (unknown) (unknown) Consultation #1: (units (unknown) date) unknown) (unknown) (no (unknown) (unknown) Consultations (units ( unknown) date) unknown) (unknown) (no (unknown) (unknown) Course (units (unkno wn) date) unknown) (unknown) (no (unknown) (unknown) Creatinine 0.64 (units (unknown) date) (0.52-1.04) unknown) mg/dL (unknown) (no (unknown) (unknown) : 1945 (units (unknown) date) Acct:[id number] unknown) (unknown) (no (unknown) (unknown) : 1945 (units (unknown) date) unknown) (unknown) (no (unknown) (unknown) Date of Service: (units (unknown) date) 05/31/21 unknown) (unknown) (no (unknown) (unknown) Departure (units (unkn own) date) unknown) (unknown) (no (unknown) (unknown) Dictated by: (units (u nknown) date) Mark Anthony Rodriguez, unknownRegina Crane on 05/31/2021 at 8:13 ? ? (unknown) (no (unknown) (unknown) Discharge Plan (units (unknown) date) unknown) (unknown) (no (unknown) (unknown) Discontinued (units (u nknown) date) Medications unknown) (unknown) (no (unknown) (unknown) Dr Moore, cardiology (units (unknown) date) with [facility]. unknown) Discussed patient has been rate controlled (unknown) (no (unknown) (unknown) ECG Data (units (unkno wn) date) unknown) (unknown) (no (unknown) (unknown) EKG-12 Lead Stat (units (unknown) date) unknown) (unknown) (no (unknown) (unknown) ER Physician: (units ( unknown) date) Nicki Blank D.O. unknown) (unknown) (no (unknown) (unknown) EXTREMITIES: (units (u nknown) date) Normal range of unknown) motion, no clubbing or edema. Neurovascularly (unknown) (no (unknown) (unknown) Eos # (Auto) 100 (units (unknown) date) (0-450) /uL unknown) (unknown) (no (unknown) (unknown) Eos % (Auto) 1.6 (units (unknown) date) L (2-4) % unknown) (unknown) (no (unknown) (unknown) Estimated GFR > (units (unknown) date) 60.0 (>60) unknown) mL/min (unknown) (no (unknown) (unknown) Exam (units (unkno wn) date) unknown) (unknown) (no (unknown) (unknown) Exam Narrative: (units (unknown) date) unknown) (unknown) (no (unknown) (unknown) FINDINGS:? (units (unk nown) date) unknown) (unknown) (no (unknown) (unknown) Family History (units (unknown) date) (Reviewed 05/31/21 unknown) @ 09:15 by Nicki Blank DO) (unknown) (no (unknown) (unknown) Family/Other (units (u nknown) date) Restless leg unknown) syndrome (unknown) (no (unknown) (unknown) Father (units (unkno wn) date) Hypertension unknown) (unknown) (no (unknown) (unknown) GENERAL: Alert (units (unknown) date) and oriented x unknown) three, female mild distress. (unknown) (no (unknown) (unknown) : No CVA (units (unk nown) date) tenderness unknown) (unknown) (no (unknown) (unknown) General (units (unkno wn) date) unknown) (unknown) (no (unknown) (unknown) GenericComposite[ (units (unknown) date) Plt Count 233 unknown) (150-400) X10^3/uL ] (unknown) (no (unknown) (unknown) GenericComposite[ (units (unknown) date) RBC 5.29 H unknown) (4.0-5.2) X10^6/uL ] (unknown) (no (unknown) (unknown) GenericComposite[ (units (unknown) date) WBC 5.9 unknown) (4.5-11.0) X10^3/uL ] (unknown) (no (unknown) (unknown) Globulin 3.4 (units (unknown) date) (1.7-4.1) g/dL unknown) (unknown) (no (unknown) (unknown) Glucose 136 H (units (unknown) date) (80-110) mg/dL unknown) (unknown) (no (unknown) (unknown) Grandmother (units (un known) date) Heart disease unknown) (unknown) (no (unknown) (unknown) HEENT: Head (units (un known) date) normocephalic, unknown) atraumatic, EOMI, pupils reactive, face symmetric, (unknown) (no (unknown) (unknown) HPI - Chest Pain (units (unknown) date) unknown) (unknown) (no (unknown) (unknown) HPI narrative: (units (unknown) date) unknown) (unknown) (no (unknown) (unknown) Hct 47.5 H (units (un known) date) (36-46) % unknown) (unknown) (no (unknown) (unknown) Hgb 16.2 H (units (un known) date) (12.0-16.0) g/dL unknown) (unknown) (no (unknown) (unknown) History of (units (unk nown) date) Present Illness unknown) (unknown) (no (unknown) (unknown) History of (units (unk nown) date) tonsillectomy unknown) (unknown) (no (unknown) (unknown) IMPRESSION:? (units (u nknown) date) Unremarkable unknown) portable chest study age.? (unknown) (no (unknown) (unknown) INDICATIONS:? (units ( unknown) date) chest pain unknown) (unknown) (no (unknown) (unknown) Imaging Data (units (u nknown) date) unknown) (unknown) (no (unknown) (unknown) Initial Vital (units ( unknown) date) Signs unknown) (unknown) (no (unknown) (unknown) Initial Vital (units ( unknown) date) Signs: unknown) (unknown) (no (unknown) (unknown) Instructions: (units ( unknown) date) Atrial unknown) Fibrillation (unknown) (no (unknown) (unknown) Interpretation: (units (unknown) date) unknown) (unknown) (no (unknown) (unknown) Jaime Aguiar MD (units (unknown) date) [Primary Care unknown) Provider] - (unknown) (no (unknown) (unknown) Lab Data (units (unkno wn) date) unknown) (unknown) (no (unknown) (unknown) Labs: (units (unkno wn) date) unknown) (unknown) (no (unknown) (unknown) Limitations: no (units (unknown) date) limitations unknown) (unknown) (no (unknown) (unknown) Lipase 69 (units (un known) date) (23-300) U/L unknown) (unknown) (no (unknown) (unknown) Lipase Stat (units (un known) date) unknown) (unknown) (no (unknown) (unknown) Loc: ED (units (unkno wn) date) unknown) (unknown) (no (unknown) (unknown) Lungs and (units (unkn own) date) pleura:? On this unknown) semiupright portable chest examination, no large (unknown) (no (unknown) (unknown) Lymph # (Auto) (units (unknown) date) 2700 unknown) (2078-7491) /uL (unknown) (no (unknown) (unknown) Lymph % (Auto) (units (unknown) date) 46.1 H (25-40) unknown) % (unknown) (no (unknown) (unknown) MCH 30.7 (units (unkn own) date) (26-34) PG unknown) (unknown) (no (unknown) (unknown) MCHC 34.1 (units (unk nown) date) (30-36) % unknown) (unknown) (no (unknown) (unknown) MCV 89.8 (units (unkn own) date) (80-100) fL unknown) (unknown) (no (unknown) (unknown) MDM - Chest Pain (units (unknown) date) unknown) (unknown) (no (unknown) (unknown) MDM Narrative (units ( unknown) date) unknown) (unknown) (no (unknown) (unknown) MR#: [id number] (units (unknown) date) unknown) (unknown) (no (unknown) (unknown) Magnesium 2.2 (units (unknown) date) (1.6-2.3) mg/dL unknown) (unknown) (no (unknown) (unknown) Magnesium Stat (units (unknown) date) unknown) (unknown) (no (unknown) (unknown) Mediastinum:? The (units (unknown) date) cardiac contours unknown) are within normal limits. The aorta (unknown) (no (unknown) (unknown) Medical decision (units (unknown) date) making narrative: unknown) (unknown) (no (unknown) (unknown) [place] # (Auto) (units ( unknown) date) 500 (0-900) unknown) /uL (unknown) (no (unknown) (unknown) [place] % (Auto) (units ( unknown) date) 8.5 (3-14) % unknown) (unknown) (no (unknown) (unknown) NECK: Supple, (units ( unknown) date) full range of unknown) motion (unknown) (no (unknown) (unknown) NEUROLOGICAL: (units ( unknown) date) Cranial nerves II unknown) through XII grossly intact. Moving all (unknown) (no (unknown) (unknown) Narrative (units (unkn own) date) unknown) (unknown) (no (unknown) (unknown) Neut # (Auto) (units ( unknown) date) 2500 unknown) (4686-8870) /uL (unknown) (no (unknown) (unknown) Neut % (Auto) (units ( unknown) date) 43.3 L (50-75) unknown) % (unknown) (no (unknown) (unknown) No Action (units (unkn own) date) unknown) (unknown) (no (unknown) (unknown) Collin Ornelas MD (units (unknown) date) [Non-Staff] - unknown) (unknown) (no (unknown) (unknown) Ordered: (units (unkno wn) date) unknown) (unknown) (no (unknown) (unknown) Ordering (units (unkno wn) date) Provider: unknown) Nicki Blank D.O. (unknown) (no (unknown) (unknown) Orders (units (unkno wn) date) unknown) (unknown) (no (unknown) (unknown) PROCEDURE:? XR (units (unknown) date) CHEST 1V unknown) (unknown) (no (unknown) (unknown) Patient (units (unkno wn) date) Disposition: Home unknown) (unknown) (no (unknown) (unknown) Patient History (units (unknown) date) unknown) (unknown) (no (unknown) (unknown) Patient: (units (unkno wn) date) Demetra Mota unknown) MR#: [id number] (unknown) (no (unknown) (unknown) Patient: (units (unkno wn) date) Demetra Mota unknown) (unknown) (no (unknown) (unknown) Please continue (units (unknown) date) home medications unknown) as prescribed. (unknown) (no (unknown) (unknown) Please follow-up (units (unknown) date) with her unknown) cardiology team. I spoke with them today they may be (unknown) (no (unknown) (unknown) Please return for (units (unknown) date) recurrent or unknown) worsening symptoms, fast heartbeat that is (unknown) (no (unknown) (unknown) Potassium 4.3 (units (unknown) date) (3.4-5.1) mmol/L unknown) (unknown) (no (unknown) (unknown) Pradaxa which he (units (unknown) date) takes twice daily. unknown) She denies missing any doses. She states (unknown) (no (unknown) (unknown) Pradaxa, (units (unkno wn) date) lisinopril, unknown) sotalol and levothyroxine. She has had all of her (unknown) (no (unknown) (unknown) Prescriptions: (units (unknown) date) unknown) (unknown) (no (unknown) (unknown) Prior ECG (units (unkn own) date) tracings: not unknown) available for review (unknown) (no (unknown) (unknown) Procedure: XR (units ( unknown) date) chest 1V unknown) (unknown) (no (unknown) (unknown) Pulse Oximetry (units (unknown) date) 98 05/31/21 unknown) 08:35 (unknown) (no (unknown) (unknown) Pulse Oximetry 96 (units (unknown) date) unknown) (unknown) (no (unknown) (unknown) Pulse Oximetry 98 (units (unknown) date) 99 97 unknown) (unknown) (no (unknown) (unknown) Pulse Rate 112 H (units (unknown) date) 05/31/21 08:35 unknown) (unknown) (no (unknown) (unknown) Pulse Rate 112 H (units (unknown) date) 86 82 unknown) (unknown) (no (unknown) (unknown) Pulse Rate 88 (units ( unknown) date) unknown) (unknown) (no (unknown) (unknown) RDW 13.0 (units (unkn own) date) (11.6-14.8) % unknown) (unknown) (no (unknown) (unknown) RESPIRATORY: (units (u nknown) date) Breath sounds unknown) equal bilaterally, no wheezes rales or rhonchi. No (unknown) (no (unknown) (unknown) ROS Unobtainable: (units (unknown) date) All systems unknown) reviewed + are unremarkable except as noted in HPI (unknown) (no (unknown) (unknown) Referrals: (units (unk nown) date) unknown) (unknown) (no (unknown) (unknown) Related Data (units (u nknown) date) unknown) (unknown) (no (unknown) (unknown) Respiratory Rate (units (unknown) date) 20 05/31/21 unknown) 08:35 (unknown) (no (unknown) (unknown) Respiratory Rate (units (unknown) date) 20 35 H 32 H unknown) (unknown) (no (unknown) (unknown) Respiratory Rate (units (unknown) date) 36 H unknown) (unknown) (no (unknown) (unknown) Result diagrams: (units (unknown) date) unknown) (unknown) (no (unknown) (unknown) Review of Systems (units (unknown) date) unknown) (unknown) (no (unknown) (unknown) SARS-CoV-2 (PCR) (units (unknown) date) Negative unknown) (Negative) (unknown) (no (unknown) (unknown) SKIN: Warm, dry, (units (unknown) date) no petechiae, no unknown) rashes or lesions. (unknown) (no (unknown) (unknown) Signed By: (units (unk nown) date) unknown) (unknown) (no (unknown) (unknown) Smoking Status: (units (unknown) date) Never smoker unknown) (unknown) (no (unknown) (unknown) Smoking Status: (units (unknown) date) Never smoker unknown) (unknown) (no (unknown) (unknown) Social History (units (unknown) date) (Reviewed 05/31/21 unknown) @ 09:15 by Nicki Blank DO) (unknown) (no (unknown) (unknown) Sodium 138 (units (u nknown) date) (137-145) mmol/L unknown) (unknown) (no (unknown) (unknown) Sodium Chloride (units (unknown) date) (Normal Saline unknown) 0.9%) 1,000 mls @ 1,000 mls/hr IV BOLUS ONE (unknown) (no (unknown) (unknown) Source: patient (units (unknown) date) unknown) (unknown) (no (unknown) (unknown) Stated Complaint: (units (unknown) date) AFIB unknown) (unknown) (no (unknown) (unknown) Status post (units (un known) date) dilation and unknown) curettage (unknown) (no (unknown) (unknown) Status post (units (un known) date) hysterectomy unknown) (unknown) (no (unknown) (unknown) Surgical History (units (unknown) date) (Reviewed 05/31/21 unknown) @ 09:15 by Nicki Blank DO) (unknown) (no (unknown) (unknown) Surgical changes (units (unknown) date) and devices:? unknown) None.? (unknown) (no (unknown) (unknown) TECHNIQUE:? One (units (unknown) date) view of the chest unknown) was acquired.? (unknown) (no (unknown) (unknown) Temperature (units (un known) date) unknown) (unknown) (no (unknown) (unknown) Temperature 98.0 (units (unknown) date) F 05/31/21 08:35 unknown) (unknown) (no (unknown) (unknown) Temperature 98.0 (units (unknown) date) F unknown) (unknown) (no (unknown) (unknown) They can schedule (units (unknown) date) cardioversion and unknown) have her return if she is having acutely (unknown) (no (unknown) (unknown) This is a (units (unkno wn) date) 75-year-old female unknown) comes emergency department stating she is in atrial (unknown) (no (unknown) (unknown) This is a (units (unkn own) date) 75-year-old female unknown) with known history of AFib who is appropriately (unknown) (no (unknown) (unknown) Time Seen by (units (u nknown) date) Provider: 05/31/21 unknown) 09:00 (unknown) (no (unknown) (unknown) Total Bilirubin (units (unknown) date) 1.1 (0.2-1.3) unknown) mg/dL (unknown) (no (unknown) (unknown) Total Creatine (units (unknown) date) Kinase 84 unknown) (30-135) U/L (unknown) (no (unknown) (unknown) Total Protein (units ( unknown) date) 8.1 (6.3-8.2) unknown) g/dL (unknown) (no (unknown) (unknown) Troponin + CK (units ( unknown) date) Cardiac Panel Stat unknown) (unknown) (no (unknown) (unknown) Troponin I < (units (unknown) date) 0.012 unknown) (0.01-0.034) ng/mL (unknown) (no (unknown) (unknown) Vital Signs (units (un known) date) unknown) (unknown) (no (unknown) (unknown) Vital signs: (units (u nknown) date) unknown) (unknown) (no (unknown) (unknown) XR chest 1V Stat (units (unknown) date) unknown) (unknown) (no (unknown) (unknown) [Embedded Image (units (unknown) date) Not Available] unknown) (unknown) (no (unknown) (unknown) able to do an (units ( unknown) date) outpatient unknown) cardioversion for you if your symptoms are persistent (unknown) (no (unknown) (unknown) additional (units (unk nown) date) episode really unknown) give her medication which cardioverted her. And she (unknown) (no (unknown) (unknown) amoxicillin (units (un known) date) [AMOXICILLIN] unknown) Allergy Intermediate Hives Verified 05/31/21 08:57 (unknown) (no (unknown) (unknown) and below (units (unkn own) date) unknown) (unknown) (no (unknown) (unknown) anticoagulated. (units (unknown) date) She is rate unknown) controlled with no emergent symptoms. Her labs are (unknown) (no (unknown) (unknown) appropriate she is (units (unknown) date) right control, she unknown) is appropriately anticoagulated they agree (unknown) (no (unknown) (unknown) benefits (units (unkno wn) date) discussed with her unknown) cardiology team as well and feels she is quite (unknown) (no (unknown) (unknown) bony lesions.? (units (unknown) date) Overlying soft unknown) tissues appear unremarkable.? (unknown) (no (unknown) (unknown) breath, (units (unkno wn) date) persistent unknown) vomiting, swelling of extremities or other new or concerning (unknown) (no (unknown) (unknown) but agree with (units (unknown) date) waiting on unknown) cardioversion today. (unknown) (no (unknown) (unknown) calcification and (units (unknown) date) tortuosity. unknown) (unknown) (no (unknown) (unknown) cardioversion (units ( unknown) date) emergency unknown) department before and describes her heart stops, she (unknown) (no (unknown) (unknown) codeine AdvReac (units (unknown) date) Hallucinati unknown) Verified 05/31/21 08:58 (unknown) (no (unknown) (unknown) demonstrates (units (u nknown) date) unknown) (unknown) (no (unknown) (unknown) extremities (units (un known) date) unknown) (unknown) (no (unknown) (unknown) fibrillation. (units ( unknown) date) She has had a unknown) history of AFib she is anticoagulated propylene on (unknown) (no (unknown) (unknown) gallops. No JVD. (units (unknown) date) No swelling unknown) bilateral lower extremities. (unknown) (no (unknown) (unknown) guarding or (units (un known) date) rebound, rigidity, unknown) no mass (unknown) (no (unknown) (unknown) had any syncope. (units (unknown) date) No nausea, no unknown) vomiting. No swelling her extremities. She is (unknown) (no (unknown) (unknown) had tonsillectomy (units (unknown) date) and hysterectomy. unknown) No tobacco, occasional alcohol none (unknown) (no (unknown) (unknown) has had 2 episodes (units (unknown) date) where she was able unknown) to switch back to a normal rhythm at home. (unknown) (no (unknown) (unknown) here in the (units (unk nown) date) department. She unknown) describes what was a eventful cardioversion and her (unknown) (no (unknown) (unknown) intact (units (unkno wn) date) unknown) (unknown) (no (unknown) (unknown) is Dr. Ornelas. (units (unknown) date) unknown) (unknown) (no (unknown) (unknown) just feels (units (unk nown) date) irregular chills unknown) occasional fluttering. She denies chest pain or (unknown) (no (unknown) (unknown) last emergency (units (unknown) date) room visit and unknown) discuss that at this time likely would not be (unknown) (no (unknown) (unknown) last night she (units (unknown) date) noticed her heart unknown) irregular, it felt fast at that time but now (unknown) (no (unknown) (unknown) levothyroxine 50 (units (unknown) date) mcg capsule 50 mcg unknown) PO DAILY 04/28/19 04/28/19 (unknown) (no (unknown) (unknown) lisinopril 10 mg (units (unknown) date) tablet 10 mg PO unknown) DAILY 04/28/19 04/28/19 (unknown) (no (unknown) (unknown) medications and (units (unknown) date) follow-up. unknown) (unknown) (no (unknown) (unknown) medications today (units (unknown) date) except for her unknown) levothyroxine. She has had 1 cardioversion (unknown) (no (unknown) (unknown) metoprolol (units (unk nown) date) tartrate 25 mg unknown) tablet 25 mg PO BID 04/28/19 04/28/19 (unknown) (no (unknown) (unknown) moist mucous (units (u nknown) date) membranes unknown) (unknown) (no (unknown) (unknown) necessary but at (units (unknown) date) this time would unknown) have her return home continue her home (unknown) (no (unknown) (unknown) not know what (units ( unknown) date) medication she unknown) received. After discussion of risks versus (unknown) (no (unknown) (unknown) noted. No priors (units (unknown) date) available for unknown) comparison. (unknown) (no (unknown) (unknown) or large pleural (units (unknown) date) effusions are unknown) seen.? No focal infiltrates are seen.? (unknown) (no (unknown) (unknown) persistent or (units ( unknown) date) very very slow, unknown) passing out, new chest pain or shortness of (unknown) (no (unknown) (unknown) pneumothorax (units (u nknown) date) unknown) (unknown) (no (unknown) (unknown) pressure or (units (un known) date) shortness of unknown) breath. She has been mildly lightheaded but has not (unknown) (no (unknown) (unknown) recently, no (units (u nknown) date) illicit. Her unknown) primary care doctors Dr. Aguiar and her medical social worker (unknown) (no (unknown) (unknown) rivaroxaban 20 mg (units (unknown) date) tablet (Xarelto) unknown) 20 mg PO DAILY 04/28/19 04/28/19 (unknown) (no (unknown) (unknown) rivaroxaban [From (units (unknown) date) Xarelto] AdvReac unknown) Verified 05/31/21 08:58 (unknown) (no (unknown) (unknown) scheduled for an (units (unknown) date) ablation in August unknown) of 2021. Patient states that she is on (unknown) (no (unknown) (unknown) simvastatin 20 mg (units (unknown) date) tablet (Zocor) 20 unknown) mg PO QPM 04/28/19 04/28/19 (unknown) (no (unknown) (unknown) stable at this (units (unknown) date) time would defer unknown) have her follow-up outpatient with Cardiology. (unknown) (no (unknown) (unknown) states she was (units (unknown) date) told to let other unknown) people know when she had this before she does (unknown) (no (unknown) (unknown) suspicious (units (unk nown) date) unknown) (unknown) (no (unknown) (unknown) symptoms. (units (unkn own) date) unknown) (unknown) (no (unknown) (unknown) tachypnea (units (unkn own) date) accessory muscle unknown) use. (unknown) (no (unknown) (unknown) where she received (units (unknown) date) medication and an unknown) electrical shock at would be ER. She had 1 (unknown) (no (unknown) (unknown) with this due (units ( unknown) date) states she did unknown) have an outpatient cardioversion with them if (unknown) (no (unknown) (unknown) worsening (units (unkn own) date) symptoms. unknown) Result panel 12 (unknown) (no (unknown) (unknown) (no value) (units (unk nown) date) unknown) (unknown) (no (unknown) (unknown) Radiologist's (units ( unknown) date) Impression: unknown) (unknown) (no (unknown) (unknown) (no value) (units (unk nown) date) unknown) (unknown) (no (unknown) (unknown) Date of Service: (units (unknown) date) 05/31/21 unknown) (unknown) (no (unknown) (unknown) (no value) (units (unk nown) date) unknown) (unknown) (no (unknown) (unknown) <Electronically (units (unknown) date) signed by Nicki Dickerson unknown) Daniel Blank> (unknown) (no (unknown) (unknown) 05/31/21 08:45 (units (unknown) date) unknown) (unknown) (no (unknown) (unknown) 05/31/21 1933 (units ( unknown) date) unknown) (unknown) (no (unknown) (unknown) 10 mg PO DAILY (units (unknown) date) 0RF unknown) (unknown) (no (unknown) (unknown) [address] [place] [address] (units (unknown) date) unknown) (unknown) (no (unknown) (unknown) 20 mg PO DAILY (units (unknown) date) 0RF unknown) (unknown) (no (unknown) (unknown) 20 mg PO QPM 0RF (units (unknown) date) unknown) (unknown) (no (unknown) (unknown) 25 mg PO BID 0RF (units (unknown) date) unknown) (unknown) (no (unknown) (unknown) 50 mcg PO DAILY (units (unknown) date) 0RF unknown) (unknown) (no (unknown) (unknown) Admin: 05/31/21 (units (unknown) date) 09:19 Dose: 1,000 unknown) mls/hr (unknown) (no (unknown) (unknown) Allergies (units (unkn own) date) unknown) (unknown) (no (unknown) (unknown) Dille, MD (units ( unknown) date) [id number] unknown) (unknown) (no (unknown) (unknown) Documented by: (units (unknown) date) BTONER unknown) (unknown) (no (unknown) (unknown) Documented by: (units (unknown) date) NRHOADS unknown) (unknown) (no (unknown) (unknown) Emergency Report (units (unknown) date) unknown) (unknown) (no (unknown) (unknown) Home Medications (units (unknown) date) unknown) (unknown) (no (unknown) (unknown) Hypertension (units (u nknown) date) unknown) (unknown) (no (unknown) (unknown) [facility] (units (unknown) date) unknown) (unknown) (no (unknown) (unknown) [facility] (units (unknown) date) [address] unknown) [place] [address] (unknown) (no (unknown) (unknown) Lab Results (units (un known) date) unknown) (unknown) (no (unknown) (unknown) Last Infusion: (units (unknown) date) 05/31/21 11:24 unknown) Dose: 0 mls/hr (unknown) (no (unknown) (unknown) Launch?Image (units (u nknown) date) unknown) (unknown) (no (unknown) (unknown) Signed (units (unkno wn) date) unknown) (unknown) (no (unknown) (unknown) Stop: 05/31/21 (units (unknown) date) 10:13 unknown) (unknown) (no (unknown) (unknown) Vital Signs - 8 (units (unknown) date) hr unknown) (unknown) (no (unknown) (unknown) XRay Report (units (un known) date) unknown) (unknown) (no (unknown) (unknown) ng (units (unkno wn) date) unknown) (unknown) (no (unknown) (unknown) (no value) (units (unk nown) date) unknown) (unknown) (no (unknown) (unknown) 05/31/21 05/31/21 (units (unknown) date) 05/31/21 unknown) Range/Units (unknown) (no (unknown) (unknown) 08:45 08:45 09:20 (units (unknown) date) unknown) (unknown) (no (unknown) (unknown) Xarelto 20 mg (units ( unknown) date) tablet unknown) (unknown) (no (unknown) (unknown) levothyroxine 50 (units (unknown) date) mcg capsule unknown) (unknown) (no (unknown) (unknown) lisinopril 10 mg (units (unknown) date) tablet unknown) (unknown) (no (unknown) (unknown) metoprolol (units (unk nown) date) tartrate 25 mg unknown) tablet (unknown) (no (unknown) (unknown) simvastatin (units (un known) date) [Zocor] 20 mg unknown) tablet (unknown) (no (unknown) (unknown) 05/31/21 (units (unkno wn) date) unknown) (unknown) (no (unknown) (unknown) Atrial (units (o wn) date) fibrillation unknown) (unknown) (no (unknown) (unknown) Medication (units () date) Instructions unknown) Recorded Confirmed (unknown) (no (unknown) (unknown) She has not had (units (unknown) date) any prior cardiac unknown) interventions no stents or ablation. She has (unknown) (no (unknown) (unknown) appropriate, EKG (units (unknown) date) and chest x-ray. unknown) Discussed with patient she has had a (unknown) (no (unknown) (unknown) 08:35 05/31/21 (units (unknown) date) unknown) (unknown) (no (unknown) (unknown) 08:45 05/31/21 (units (unknown) date) unknown) (unknown) (no (unknown) (unknown) 09:00 (units (o wn) date) unknown) (unknown) (no (unknown) (unknown) 09:01 (units (o wn) date) unknown) (unknown) (no (unknown) (unknown) [id number] (units (o wn) date) unknown) (unknown) (no (unknown) (unknown) ? (units (o wn) date) unknown) (unknown) (no (unknown) (unknown) ABDOMEN: Soft, (units (unknown) date) nontender. unknown) Normoactive bowel sounds all 4 quadrants. No (unknown) (no (unknown) (unknown) AFib with rate of (units (unknown) date) 76 QRS 82 and QTC unknown) of 425. No acute ST elevation depression (unknown) (no (unknown) (unknown) ALT 28 (<35) (units (unknown) date) IU/L unknown) (unknown) (no (unknown) (unknown) AST 37 H (units (unk nown) date) (14-36) IU/L unknown) (unknown) (no (unknown) (unknown) Accession Number: (units (unknown) date) [id number] ?? unknown) (unknown) (no (unknown) (unknown) Acct:[id number] (units (unknown) date) unknown) (unknown) (no (unknown) (unknown) Activity (units (o wn) date) Restrictions/Addit unknown) ional Instructions: (unknown) (no (unknown) (unknown) Age/Sex: 75 / F (units (unknown) date) unknown) (unknown) (no (unknown) (unknown) Age/Sex: 75 / F (units (unknown) date) unknown) (unknown) (no (unknown) (unknown) Albumin 4.7 (units ( unknown) date) (3.5-5.0) g/dL unknown) (unknown) (no (unknown) (unknown) Albumin/Globulin (units (unknown) date) Ratio 1.4 unknown) (1.0-2.8) (unknown) (no (unknown) (unknown) Alkaline (units (unkno wn) date) Phosphatase 75 unknown) (38-126) U/L (unknown) (no (unknown) (unknown) Allergy/AdvReac (units (unknown) date) Type Severity unknown) Reaction Status Date / Time (unknown) (no (unknown) (unknown) Approved by: (units (u nknown) date) darren Pollack M.D. on 05/31/2021 at 8:13?? (unknown) (no (unknown) (unknown) Attestation: I (units (unknown) date) personally unknown) reviewed and interpreted this ECG as follows: (unknown) (no (unknown) (unknown) BUN 13 (7-17) (units (unknown) date) mg/dL unknown) (unknown) (no (unknown) (unknown) BUN/Creatinine (units (unknown) date) Ratio 20.3 unknown) (6-22) (unknown) (no (unknown) (unknown) Baso # (Auto) 0 (units (unknown) date) (0-100) /uL unknown) (unknown) (no (unknown) (unknown) Baso % (Auto) (units ( unknown) date) 0.5 (0-2) % unknown) (unknown) (no (unknown) (unknown) Blood Pressure (units (unknown) date) 199/95 H 05/31/21 unknown) 08:35 (unknown) (no (unknown) (unknown) Blood Pressure (units (unknown) date) 141/85 H unknown) (unknown) (no (unknown) (unknown) Blood Pressure (units (unknown) date) 199/95 H unknown) (unknown) (no (unknown) (unknown) Bones and chest (units (unknown) date) wall:? unknown) Age-appropriate bony degenerative changes are seen.? No (unknown) (no (unknown) (unknown) CARDIOVASCULAR: (units (unknown) date) Irregularly unknown) irregular rate and rhythm without murmurs, rubs or (unknown) (no (unknown) (unknown) CK-MB (CK-2) (units (u nknown) date) TNP unknown) (unknown) (no (unknown) (unknown) CK-MB (CK-2) Rel (units (unknown) date) Index TNP unknown) (unknown) (no (unknown) (unknown) COMPARISON:? (units (u nknown) date) None. unknown) (unknown) (no (unknown) (unknown) Calcium 9.4 (units ( unknown) date) (8.4-10.2) mg/dL unknown) (unknown) (no (unknown) (unknown) Carbon Dioxide (units (unknown) date) 28 (22-32) unknown) mmol/L (unknown) (no (unknown) (unknown) Chest x-ray: (units (u nknown) date) unknown) (unknown) (no (unknown) (unknown) Chief Complaint: (units (unknown) date) Chest Pain unknown) (unknown) (no (unknown) (unknown) Chloride 101 (units (unknown) date) (98-107) mmol/L unknown) (unknown) (no (unknown) (unknown) Clinical (units (unkno wn) date) Impression: unknown) (unknown) (no (unknown) (unknown) Consultation #1: (units (unknown) date) unknown) (unknown) (no (unknown) (unknown) Consultations (units ( unknown) date) unknown) (unknown) (no (unknown) (unknown) Course (units (unkno wn) date) unknown) (unknown) (no (unknown) (unknown) Creatinine 0.64 (units (unknown) date) (0.52-1.04) unknown) mg/dL (unknown) (no (unknown) (unknown) : 1945 (units (unknown) date) Acct:[id number] unknown) (unknown) (no (unknown) (unknown) : 1945 (units (unknown) date) unknown) (unknown) (no (unknown) (unknown) Date of Service: (units (unknown) date) 05/31/21 unknown) (unknown) (no (unknown) (unknown) Departure (units (unkn own) date) unknown) (unknown) (no (unknown) (unknown) Dictated by: (units (u nknown) date) Mark Anthony Rodriguez unknownRegina Crane on 05/31/2021 at 8:13 ? ? (unknown) (no (unknown) (unknown) Discharge Plan (units (unknown) date) unknown) (unknown) (no (unknown) (unknown) Discontinued (units (u nknown) date) Medications unknown) (unknown) (no (unknown) (unknown) Discussed with (units ( unknown) date) patient unknown) recommendation from Cardiology she feels comfortable with (unknown) (no (unknown) (unknown) Dr Ordoñez, (units (unk n) date) cardiology with unknown) [facility]. Discussed patient has been rate (unknown) (no (unknown) (unknown) ECG Data (units (unkno wn) date) unknown) (unknown) (no (unknown) (unknown) ER Physician: (units ( unknown) date) Nicki Blank D.O. unknown) (unknown) (no (unknown) (unknown) EXTREMITIES: (units (u nknown) date) Normal range of unknown) motion, no clubbing or edema. Neurovascularly (unknown) (no (unknown) (unknown) Eos # (Auto) 100 (units (unknown) date) (0-450) /uL unknown) (unknown) (no (unknown) (unknown) Eos % (Auto) 1.6 (units (unknown) date) L (2-4) % unknown) (unknown) (no (unknown) (unknown) Estimated GFR > (units (unknown) date) 60.0 (>60) unknown) mL/min (unknown) (no (unknown) (unknown) Exam (units (unkno wn) date) unknown) (unknown) (no (unknown) (unknown) Exam Narrative: (units (unknown) date) unknown) (unknown) (no (unknown) (unknown) FINDINGS:? (units (unk nown) date) unknown) (unknown) (no (unknown) (unknown) Family History (units (unknown) date) (Reviewed 05/31/21 unknown) @ 09:15 by Nicki Blank DO) (unknown) (no (unknown) (unknown) Family/Other (units (u nknown) date) Restless leg unknown) syndrome (unknown) (no (unknown) (unknown) Father (units (unkno wn) date) Hypertension unknown) (unknown) (no (unknown) (unknown) GENERAL: Alert (units (unknown) date) and oriented x unknown) three, female mild distress. (unknown) (no (unknown) (unknown) : No CVA (units (unk nown) date) tenderness unknown) (unknown) (no (unknown) (unknown) General (units (unkno wn) date) unknown) (unknown) (no (unknown) (unknown) GenericComposite[ (units (unknown) date) Plt Count 233 unknown) (150-400) X10^3/uL ] (unknown) (no (unknown) (unknown) GenericComposite[ (units (unknown) date) RBC 5.29 H unknown) (4.0-5.2) X10^6/uL ] (unknown) (no (unknown) (unknown) GenericComposite[ (units (unknown) date) WBC 5.9 unknown) (4.5-11.0) X10^3/uL ] (unknown) (no (unknown) (unknown) Globulin 3.4 (units (unknown) date) (1.7-4.1) g/dL unknown) (unknown) (no (unknown) (unknown) Glucose 136 H (units (unknown) date) (80-110) mg/dL unknown) (unknown) (no (unknown) (unknown) Grandmother (units (un known) date) Heart disease unknown) (unknown) (no (unknown) (unknown) HEENT: Head (units (un known) date) normocephalic, unknown) atraumatic, EOMI, pupils reactive, face symmetric, (unknown) (no (unknown) (unknown) HPI - Chest Pain (units (unknown) date) unknown) (unknown) (no (unknown) (unknown) HPI narrative: (units (unknown) date) unknown) (unknown) (no (unknown) (unknown) Hct 47.5 H (units (un known) date) (36-46) % unknown) (unknown) (no (unknown) (unknown) Hgb 16.2 H (units (un known) date) (12.0-16.0) g/dL unknown) (unknown) (no (unknown) (unknown) History of (units (unk nown) date) Present Illness unknown) (unknown) (no (unknown) (unknown) History of (units (unk nown) date) tonsillectomy unknown) (unknown) (no (unknown) (unknown) IMPRESSION:? (units (u nknown) date) Unremarkable unknown) portable chest study age.? (unknown) (no (unknown) (unknown) INDICATIONS:? (units ( unknown) date) chest pain unknown) (unknown) (no (unknown) (unknown) Imaging Data (units (u nknown) date) unknown) (unknown) (no (unknown) (unknown) Initial Vital (units ( unknown) date) Signs unknown) (unknown) (no (unknown) (unknown) Initial Vital (units ( unknown) date) Signs: unknown) (unknown) (no (unknown) (unknown) Instructions: (units ( unknown) date) Atrial unknown) Fibrillation (unknown) (no (unknown) (unknown) Interpretation: (units (unknown) date) unknown) (unknown) (no (unknown) (unknown) Jaime Aguiar MD (units (unknown) date) [Primary Care unknown) Provider] - (unknown) (no (unknown) (unknown) Lab Data (units (unkno wn) date) unknown) (unknown) (no (unknown) (unknown) Labs: (units (unkno wn) date) unknown) (unknown) (no (unknown) (unknown) Limitations: no (units (unknown) date) limitations unknown) (unknown) (no (unknown) (unknown) Lipase 69 (units (un known) date) (23-300) U/L unknown) (unknown) (no (unknown) (unknown) Loc: ED (units (unkno wn) date) unknown) (unknown) (no (unknown) (unknown) Lungs and (units (unkn own) date) pleura:? On this unknown) semiupright portable chest examination, no large (unknown) (no (unknown) (unknown) Lymph # (Auto) (units (unknown) date) 2700 unknown) (3321-9192) /uL (unknown) (no (unknown) (unknown) Lymph % (Auto) (units (unknown) date) 46.1 H (25-40) unknown) % (unknown) (no (unknown) (unknown) MCH 30.7 (units (unkn own) date) (26-34) PG unknown) (unknown) (no (unknown) (unknown) MCHC 34.1 (units (unk nown) date) (30-36) % unknown) (unknown) (no (unknown) (unknown) MCV 89.8 (units (unkn own) date) (80-100) fL unknown) (unknown) (no (unknown) (unknown) MDM - Chest Pain (units (unknown) date) unknown) (unknown) (no (unknown) (unknown) MDM Narrative (units ( unknown) date) unknown) (unknown) (no (unknown) (unknown) MR#: [id number] (units (unknown) date) unknown) (unknown) (no (unknown) (unknown) Magnesium 2.2 (units (unknown) date) (1.6-2.3) mg/dL unknown) (unknown) (no (unknown) (unknown) Mediastinum:? The (units (unknown) date) cardiac contours unknown) are within normal limits. The aorta (unknown) (no (unknown) (unknown) Medical decision (units (unknown) date) making narrative: unknown) (unknown) (no (unknown) (unknown) [place] # (Auto) (units ( unknown) date) 500 (0-900) unknown) /uL (unknown) (no (unknown) (unknown) [place] % (Auto) (units ( unknown) date) 8.5 (3-14) % unknown) (unknown) (no (unknown) (unknown) NECK: Supple, (units ( unknown) date) full range of unknown) motion (unknown) (no (unknown) (unknown) NEUROLOGICAL: (units ( unknown) date) Cranial nerves II unknown) through XII grossly intact. Moving all (unknown) (no (unknown) (unknown) Narrative (units (unkn own) date) unknown) (unknown) (no (unknown) (unknown) Neut # (Auto) (units ( unknown) date) 2500 unknown) (2239-1165) /uL (unknown) (no (unknown) (unknown) Neut % (Auto) (units ( unknown) date) 43.3 L (50-75) unknown) % (unknown) (no (unknown) (unknown) No Action (units (unkn own) date) unknown) (unknown) (no (unknown) (unknown) Collin Ornelas MD (units (unknown) date) [Non-Staff] - unknown) (unknown) (no (unknown) (unknown) Ordered: (units (unkno wn) date) unknown) (unknown) (no (unknown) (unknown) Ordering (units (unkno wn) date) Provider: unknown) Nicki Blank D.O. (unknown) (no (unknown) (unknown) Orders (units (unkno wn) date) unknown) (unknown) (no (unknown) (unknown) PROCEDURE:? XR (units (unknown) date) CHEST 1V unknown) (unknown) (no (unknown) (unknown) Patient (units (unkno wn) date) Disposition: Home unknown) (unknown) (no (unknown) (unknown) Patient History (units (unknown) date) unknown) (unknown) (no (unknown) (unknown) Patient: (units (unkno wn) date) Demetra Mota unknown) MR#: [id number] (unknown) (no (unknown) (unknown) Patient: (units (unkno wn) date) Demetra Mota unknown) (unknown) (no (unknown) (unknown) Please continue (units (unknown) date) home medications unknown) as prescribed. (unknown) (no (unknown) (unknown) Please follow-up (units (unknown) date) with her unknown) cardiology team. I spoke with them today they may be (unknown) (no (unknown) (unknown) Please return for (units (unknown) date) recurrent or unknown) worsening symptoms, fast heartbeat that is (unknown) (no (unknown) (unknown) Potassium 4.3 (units (unknown) date) (3.4-5.1) mmol/L unknown) (unknown) (no (unknown) (unknown) Pradaxa which he (units (unknown) date) takes twice daily. unknown) She denies missing any doses. She states (unknown) (no (unknown) (unknown) Pradaxa, (units (unkno wn) date) lisinopril, unknown) sotalol and levothyroxine. She has had all of her (unknown) (no (unknown) (unknown) Prescriptions: (units (unknown) date) unknown) (unknown) (no (unknown) (unknown) Prior ECG (units (unkn own) date) tracings: not unknown) available for review (unknown) (no (unknown) (unknown) Procedure: XR (units ( unknown) date) chest 1V unknown) (unknown) (no (unknown) (unknown) Pulse Oximetry (units (unknown) date) 98 05/31/21 unknown) 08:35 (unknown) (no (unknown) (unknown) Pulse Oximetry 96 (units (unknown) date) unknown) (unknown) (no (unknown) (unknown) Pulse Oximetry 98 (units (unknown) date) 99 97 unknown) (unknown) (no (unknown) (unknown) Pulse Rate 112 H (units (unknown) date) 05/31/21 08:35 unknown) (unknown) (no (unknown) (unknown) Pulse Rate 112 H (units (unknown) date) 86 82 unknown) (unknown) (no (unknown) (unknown) Pulse Rate 88 (units ( unknown) date) unknown) (unknown) (no (unknown) (unknown) RDW 13.0 (units (unkn own) date) (11.6-14.8) % unknown) (unknown) (no (unknown) (unknown) RESPIRATORY: (units (u nknown) date) Breath sounds unknown) equal bilaterally, no wheezes rales or rhonchi. No (unknown) (no (unknown) (unknown) ROS Unobtainable: (units (unknown) date) All systems unknown) reviewed + are unremarkable except as noted in HPI (unknown) (no (unknown) (unknown) Reevaluation #1: (units (unknown) date) unknown) (unknown) (no (unknown) (unknown) Reevaluation(s) (units (unknown) date) unknown) (unknown) (no (unknown) (unknown) Referrals: (units (unk nown) date) unknown) (unknown) (no (unknown) (unknown) Related Data (units (u nknown) date) unknown) (unknown) (no (unknown) (unknown) Respiratory Rate (units (unknown) date) 20 05/31/21 unknown) 08:35 (unknown) (no (unknown) (unknown) Respiratory Rate (units (unknown) date) 20 35 H 32 H unknown) (unknown) (no (unknown) (unknown) Respiratory Rate (units (unknown) date) 36 H unknown) (unknown) (no (unknown) (unknown) Result diagrams: (units (unknown) date) unknown) (unknown) (no (unknown) (unknown) Review of Systems (units (unknown) date) unknown) (unknown) (no (unknown) (unknown) SARS-CoV-2 (PCR) (units (unknown) date) Negative unknown) (Negative) (unknown) (no (unknown) (unknown) SKIN: Warm, dry, (units (unknown) date) no petechiae, no unknown) rashes or lesions. (unknown) (no (unknown) (unknown) Signed By: (units (unk nown) date) unknown) (unknown) (no (unknown) (unknown) Smoking Status: (units (unknown) date) Never smoker unknown) (unknown) (no (unknown) (unknown) Smoking Status: (units (unknown) date) Never smoker unknown) (unknown) (no (unknown) (unknown) Social History (units (unknown) date) (Reviewed 05/31/21 unknown) @ 09:15 by Nicki Blank DO) (unknown) (no (unknown) (unknown) Sodium 138 (units (u nknown) date) (137-145) mmol/L unknown) (unknown) (no (unknown) (unknown) Sodium Chloride (units (unknown) date) (Normal Saline unknown) 0.9%) 1,000 mls @ 1,000 mls/hr IV BOLUS ONE (unknown) (no (unknown) (unknown) Source: patient (units (unknown) date) unknown) (unknown) (no (unknown) (unknown) Stated Complaint: (units (unknown) date) AFIB unknown) (unknown) (no (unknown) (unknown) Status post (units (un known) date) dilation and unknown) curettage (unknown) (no (unknown) (unknown) Status post (units (un known) date) hysterectomy unknown) (unknown) (no (unknown) (unknown) Surgical History (units (unknown) date) (Reviewed 05/31/21 unknown) @ 09:15 by Nicki Blank DO) (unknown) (no (unknown) (unknown) Surgical changes (units (unknown) date) and devices:? unknown) None.? (unknown) (no (unknown) (unknown) TECHNIQUE:? One (units (unknown) date) view of the chest unknown) was acquired.? (unknown) (no (unknown) (unknown) Temperature (units (un known) date) unknown) (unknown) (no (unknown) (unknown) Temperature 98.0 (units (unknown) date) F 05/31/21 08:35 unknown) (unknown) (no (unknown) (unknown) Temperature 98.0 (units (unknown) date) F unknown) (unknown) (no (unknown) (unknown) They can schedule (units (unknown) date) cardioversion and unknown) have her return if she is having acutely (unknown) (no (unknown) (unknown) This is a (units (unkno wn) date) 75-year-old female unknown) comes emergency department stating she is in atrial (unknown) (no (unknown) (unknown) This is a (units (unkn own) date) 75-year-old female unknown) with known history of AFib who is appropriately (unknown) (no (unknown) (unknown) Time Seen by (units (u nknown) date) Provider: 05/31/21 unknown) 09:00 (unknown) (no (unknown) (unknown) Total Bilirubin (units (unknown) date) 1.1 (0.2-1.3) unknown) mg/dL (unknown) (no (unknown) (unknown) Total Creatine (units (unknown) date) Kinase 84 unknown) (30-135) U/L (unknown) (no (unknown) (unknown) Total Protein (units ( unknown) date) 8.1 (6.3-8.2) unknown) g/dL (unknown) (no (unknown) (unknown) Troponin I < (units (unknown) date) 0.012 unknown) (0.01-0.034) ng/mL (unknown) (no (unknown) (unknown) Vital Signs (units (un known) date) unknown) (unknown) (no (unknown) (unknown) Vital signs: (units (u nknown) date) unknown) (unknown) (no (unknown) (unknown) [Embedded Image (units (unknown) date) Not Available] unknown) (unknown) (no (unknown) (unknown) able to do an (units ( unknown) date) outpatient unknown) cardioversion for you if your symptoms are persistent (unknown) (no (unknown) (unknown) additional (units (unk nown) date) episode really unknown) give her medication which cardioverted her. And she (unknown) (no (unknown) (unknown) amoxicillin (units (un known) date) [AMOXICILLIN] unknown) Allergy Intermediate Hives Verified 05/31/21 08:57 (unknown) (no (unknown) (unknown) and below (units (unkn own) date) unknown) (unknown) (no (unknown) (unknown) and reasons to (units (unknown) date) return emergently. unknown) (unknown) (no (unknown) (unknown) anticoagulated (units (unknown) date) they agree with unknown) this due states she did have an outpatient (unknown) (no (unknown) (unknown) anticoagulated. (units (unknown) date) She is rate unknown) controlled with no emergent symptoms. Her labs are (unknown) (no (unknown) (unknown) benefits (units (unkno wn) date) discussed with her unknown) cardiology team as well and feels she is quite (unknown) (no (unknown) (unknown) bony lesions.? (units (unknown) date) Overlying soft unknown) tissues appear unremarkable.? (unknown) (no (unknown) (unknown) breath, (units (unkno wn) date) persistent unknown) vomiting, swelling of extremities or other new or concerning (unknown) (no (unknown) (unknown) but agree with (units (unknown) date) waiting on unknown) cardioversion today. (unknown) (no (unknown) (unknown) calcification and (units (unknown) date) tortuosity. unknown) (unknown) (no (unknown) (unknown) cardioversion and (units (unknown) date) her last emergency unknown) room visit and discuss that at this time (unknown) (no (unknown) (unknown) cardioversion (units ( unknown) date) emergency unknown) department before and describes her heart stops, she (unknown) (no (unknown) (unknown) cardioversion with (units (unknown) date) them if necessary unknown) but at this time would have her return home (unknown) (no (unknown) (unknown) codeine AdvReac (units (unknown) date) Hallucinati unknown) Verified 05/31/21 08:58 (unknown) (no (unknown) (unknown) continue her home (units (unknown) date) medications and unknown) follow-up. (unknown) (no (unknown) (unknown) controlled here (units (unknown) date) in the department. unknown) She describes what was a eventful (unknown) (no (unknown) (unknown) demonstrates (units (u nknown) date) unknown) (unknown) (no (unknown) (unknown) extremities (units (un known) date) unknown) (unknown) (no (unknown) (unknown) fibrillation. (units ( unknown) date) She has had a unknown) history of AFib she is anticoagulated propylene on (unknown) (no (unknown) (unknown) gallops. No JVD. (units (unknown) date) No swelling unknown) bilateral lower extremities. (unknown) (no (unknown) (unknown) guarding or (units (un known) date) rebound, rigidity, unknown) no mass (unknown) (no (unknown) (unknown) had any syncope. (units (unknown) date) No nausea, no unknown) vomiting. No swelling her extremities. She is (unknown) (no (unknown) (unknown) had tonsillectomy (units (unknown) date) and hysterectomy. unknown) No tobacco, occasional alcohol none (unknown) (no (unknown) (unknown) has had 2 episodes (units (unknown) date) where she was able unknown) to switch back to a normal rhythm at home. (unknown) (no (unknown) (unknown) intact (units (unkno wn) date) unknown) (unknown) (no (unknown) (unknown) is Dr. Ornelas. (units (unknown) date) unknown) (unknown) (no (unknown) (unknown) just feels (units (unk nown) date) irregular chills unknown) occasional fluttering. She denies chest pain or (unknown) (no (unknown) (unknown) last night she (units (unknown) date) noticed her heart unknown) irregular, it felt fast at that time but now (unknown) (no (unknown) (unknown) levothyroxine 50 (units (unknown) date) mcg capsule 50 mcg unknown) PO DAILY 04/28/19 04/28/19 (unknown) (no (unknown) (unknown) likely would not (units (unknown) date) be appropriate she unknown) is right control, she is appropriately (unknown) (no (unknown) (unknown) lisinopril 10 mg (units (unknown) date) tablet 10 mg PO unknown) DAILY 04/28/19 04/28/19 (unknown) (no (unknown) (unknown) medications today (units (unknown) date) except for her unknown) levothyroxine. She has had 1 cardioversion (unknown) (no (unknown) (unknown) metoprolol (units (unk nown) date) tartrate 25 mg unknown) tablet 25 mg PO BID 04/28/19 04/28/19 (unknown) (no (unknown) (unknown) moist mucous (units (u nknown) date) membranes unknown) (unknown) (no (unknown) (unknown) not know what (units ( unknown) date) medication she unknown) received. After discussion of risks versus (unknown) (no (unknown) (unknown) noted. No priors (units (unknown) date) available for unknown) comparison. (unknown) (no (unknown) (unknown) or large pleural (units (unknown) date) effusions are unknown) seen.? No focal infiltrates are seen.? (unknown) (no (unknown) (unknown) persistent or (units ( unknown) date) very very slow, unknown) passing out, new chest pain or shortness of (unknown) (no (unknown) (unknown) pneumothorax (units (u nknown) date) unknown) (unknown) (no (unknown) (unknown) potential (units (unkno wn) date) cardioversion unknown) outpatient. She is aware of signs symptoms to watch for (unknown) (no (unknown) (unknown) pressure or (units (un known) date) shortness of unknown) breath. She has been mildly lightheaded but has not (unknown) (no (unknown) (unknown) recently, no (units (u nknown) date) illicit. Her unknown) primary care doctors Dr. Aguiar and her medical social worker (unknown) (no (unknown) (unknown) rivaroxaban 20 mg (units (unknown) date) tablet (Xarelto) unknown) 20 mg PO DAILY 04/28/19 04/28/19 (unknown) (no (unknown) (unknown) rivaroxaban [From (units (unknown) date) Xarelto] AdvReac unknown) Verified 05/31/21 08:58 (unknown) (no (unknown) (unknown) scheduled for an (units (unknown) date) ablation in August unknown) of 2021. Patient states that she is on (unknown) (no (unknown) (unknown) scheduled in the (units (unknown) date) next couple weeks unknown) but will call see about sooner follow-up for (unknown) (no (unknown) (unknown) simvastatin 20 mg (units (unknown) date) tablet (Zocor) 20 unknown) mg PO QPM 04/28/19 04/28/19 (unknown) (no (unknown) (unknown) stable at this (units (unknown) date) time would defer unknown) have her follow-up outpatient with Cardiology. (unknown) (no (unknown) (unknown) states she was (units (unknown) date) told to let other unknown) people know when she had this before she does (unknown) (no (unknown) (unknown) suspicious (units (unk nown) date) unknown) (unknown) (no (unknown) (unknown) symptoms. (units (unkn own) date) unknown) (unknown) (no (unknown) (unknown) tachypnea (units (unkn own) date) accessory muscle unknown) use. (unknown) (no (unknown) (unknown) this plan. She (units (unknown) date) will contact her unknown) cardiology team she has a follow already (unknown) (no (unknown) (unknown) where she received (units (unknown) date) medication and an unknown) electrical shock at would be ER. She had 1 (unknown) (no (unknown) (unknown) worsening (units (unkn own) date) symptoms. unknown) Social History date description facility (no date) Never smoked tobacco ([facility] Vital Signs date measurement value units [id number] BMI BMI 28.9 kg/m2 +0000 BP_diastolic BP_diastolic 85 mm[H g] +0000 BP_systolic BP_systolic 152 mm[Hg] +0000 heart_rate heart_rate 98 /min +0000 height_metric height_metric 165.1 cm +0000 height_standard height_standard 65 in +0000 respiration_rate respiration_rate 19 /min +0000 temperature_metric temperature_metric 36.67 C +0000 temperature_standard temperature_standard 9 8 F +0000 weight_metric weight_metric 78.83 kg +0000 weight_standard weight_standard 173.79 lb
[2021-08-22 08:47] VITALS: BP 136/97
== END 2021-08-22 09:10 | disposition home or self-care (01) ==
LOC: EDUNIT# → ED 08:17
DX: I48.91 Unspecified atrial fibrillation (principal)
CPT/HCPCS: 93005; 99282; 99284

== ENCOUNTER → 2021-08-22 | Outpatient (CLI) | payer MEDICARE, OTHER | END | disposition critical access hospital (66) | LOC: EMS 07:52 | DX: I48.91 Unspecified atrial fibrillation (principal) | CPT/HCPCS: A0425; A0429 ==

== ENCOUNTER 2022-03-23 08:42 | Outpatient (CLI) | payer MEDICARE, OTHER ==
--- NOTE | 2022-03-24 11:45 | Mammography Report ---
BILATERAL DIGITAL SCREENING MAMMOGRAM 3D/2D: 03/23/2022 CLINICAL: Routine screening. Comparison is made to exams dated: 03/01/2021 mammogram, 12/15/2019 mammogram, 12/06/2018 mammogram, 1 04/03/2015 mammogram, 12/31/2014 mammogram, and 11/26/2013 mammogram - [facility]. There are scattered areas of fibroglandular density in both breasts (category b / 25%-50% glandular t issue). No significant masses, calcifications, or other findings are seen in either breast. There has been no significant interval change. IMPRESSION: NEGATIVE There is no mammographic evidence of malignancy. A 1 year screening mammogram is recommended. Based on the Tyrer Cuzick model (a risk assessment model) the patients lifetime risk is 3.9% and her 10 year risk is 3.9%. According to the ACR, ACS, and NCCN guidelines, an annual breast MRI exam kerri g with mammogram is recommended if the patients lifetime risk is 20% or greater. This exam was interpreted at Station ID: [id number]. NOTE: For mammograms, a report in lay terms will be sent to the patient. Approximately 15% of breast malignancies will not be visualized mammographically. In the management of a palpable breast mass, a negative mammogram must not discourage biopsy of a clinically suspicious lesion. Electronically Signed By: Boo boo/boyd:03/23/2022 10:13:10 ACR BI-RADS Category 1: Negative 3341F PARENCHYMAL PATTERN: (A) - The breast(s) demonstrate(s) scattered fibroglandular densities. BI-RADS CATEGORY: (1) - 1 RECOMMENDATION: (ANNUAL) - Recommend routine annual screening mammography. [id number] 1 year screening LATERALITY: (B)
== END 2022-03-23 08:43 | disposition home or self-care (01) ==
LOC: DI.N 08:42
DX: Z12.31 Encounter for screening mammogram for malignant neoplasm of breast (principal)

== ENCOUNTER 2023-01-23 13:40 | Emergency (ER) | payer MEDICARE, OTHER ==
[2023-01-23 14:16] LABS: BASOPHILS % (AUTO) 0.3 %; EOSINOPHILS # (AUTO) 0.1 10^3/uL (0.0-0.7); EOSINOPHILS % (AUTO) 0.9 %; HCT - HEMATOCRIT 44.2 % (37.0-47.0); HGB - HEMOGLOBIN 14.3 g/dL (12.0-16.0); LYMPHOCYTES # (AUTO) 2.5 10^3/uL (1.5-3.5); LYMPHOCYTES % (AUTO) 38.2 %; MEAN CORPUSCULAR HEMOGLOBIN 29.4 pg (27.0-31.0); MEAN CORPUSCULAR HGB CONC 32.4 g/dL (32.0-36.0); MEAN CORPUSCULAR VOLUME 90.8 fL (81.0-99.0); MEAN PLATELET VOLUME 9.5 fL (7.9-10.8); MONOCYTES # (AUTO) 0.6 10^3/uL (0.0-1.0); MONOCYTES % (AUTO) 8.6 %; NEUTROPHILS # (AUTO) 3.3 10^3/uL (1.5-6.6); NEUTROPHILS % (AUTO) 51.8 %; PLT - PLATELET COUNT 210 10^3/uL (130-450); RED BLOOD COUNT 4.87 10^6/uL (4.20-5.40); RED CELL DISTRIBUTION WIDTH 13.1 % (12.0-15.0); WHITE BLOOD COUNT 6.4 x10^3/uL (4.8-10.8)
[2023-01-23 14:28] LABS: ALBUMIN 4.6 g/dL (3.2-5.5); ALBUMIN/GLOBULIN RATIO 1.7 (1.0-2.2); BILIRUBIN,TOTAL 0.6 mg/dL (0.2-1.0); CALCIUM 9.8 mg/dL (8.5-10.3); CREATININE 0.7 mg/dL (0.6-1.3); POTASSIUM 3.8 mmol/L (3.5-4.5); TOTAL PROTEIN 7.3 g/dL (6.4-8.9)
--- NOTE | 2023-01-23 14:53 | XRAY Report ---
PROCEDURE: Chest 1 View X-Ray INDICATIONS: SOA TECHNIQUE: One view of the chest was acquired. COMPARISON: None. FINDINGS: Surgical changes and devices: None. Lungs and pleura: No pleural effusions or pneumothorax. Lungs are clear. Prominent interstitial mar kings are chronic. Mediastinum: Mediastinal contours appear normal. Heart size is normal. Bones and chest wall: No suspicious bony lesions. Overlying soft tissues appear unremarkable. IMPRESSION: No acute cardiopulmonary process. Reviewed by: Kvng Gonzales on 01/23/2023 1:51 PM [facility] Approved by: Kvng Gonzales on 01/23/2023 1:51 PM [facility] Station ID: [id number]
--- NOTE | 2023-01-23 15:28 | ED Physician Documentation ---
History of Present Illness - Stated complaint Stated Complaint: HHR,HIGH BP - Chief complaint Chief Complaint: Cardiac - History obtained from History obtained from: Patient - Additonal information Additional information: She has a history of remote ablation for A-fib and a watchman. 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 Since then she has noticed her resting and exertional heart rates been higher than normal. There is no associated chest pain or trouble breathing but it does make her anxious. 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 - Past Surgical History Past Surgical History: Yes General: Colonoscopy /REGISTERED PHLEBOTOMIST PART TIME: Hysterectomy Cardiovascular: Other HEENT: Tonsil/Adenoidectomy - Present Medications Home Medications: Ambulatory Orders Medication Instructions Recorded Confirmed Dabigatran [Pradaxa] 75 mg PO BID 11/02/20 08/22/21 Levothyroxine Sodium 50 mcg PO QID 11/02/20 08/22/21 [Levothyroxine] Lisinopril [Zestril] 10 mg PO DAILY 11/02/20 08/22/21 Metoprolol Tartrate [Lopressor] 25 mg PO DAILY 11/02/20 11/02/20 - Allergies Allergies/Adverse Reactions: Allergies Allergy/AdvReac Type Severity Reaction Status Date / Time amoxicillin Allergy Unknown Verified 01/23/23 13:56 codeine Allergy Hallucinati Verified 01/23/23 13:56 ons rivaroxaban [From Xarelto] AdvReac Unknown Verified 01/23/23 13:56 nuts Allergy Unknown Uncoded 01/23/23 13:56 - Social History Does the pt smoke?: No Smoking Status: Never smoker Does the pt drink ETOH?: Yes Does the pt have substance abuse?: No - Immunizations Immunizations are current?: Yes - POLST Patient has POLST: No PD ED PE NORMAL - Vitals Vital signs reviewed: Yes - General General: Alert and oriented X 3, No acute distress - Cardiac Cardiac: RRR, No murmur - Respiratory Respiratory: No respiratory distress, Clear bilaterally - Abdomen Abdomen: Non tender - Extremities Extremities: No edema, No calf tenderness / cord - Neuro Neuro: Alert and oriented X 3 Results - Vitals Vitals: Vital Signs - 24 hr 01/23/23 13:49 Temperature 36.5 C Heart Rate 84 Respiratory 16 Rate Blood Pressure 171/80 H O2 Saturation 98 Oxygen O2 Source Room air - EKG (time done) 1358 EKG releavant findings:: EKG personally interpreted by author of this note. Relevant findings are: Rate: Rate (enter#) (77) Rhythm: NSR Raymond: Normal Intervals: Normal NM QRS: Normal Ischemia: Non specific changes - Labs Labs: Laboratory Tests 01/23/23 01/23/23 01/23/23 14:08 14:08 14:08 WBC 6.4 RBC 4.87 Hgb 14.3 Hct 44.2 MCV 90.8 MCH 29.4 MCHC 32.4 RDW 13.1 Plt Count 210 MPV 9.5 Neut # (Auto) 3.3 Lymph # (Auto) 2.5 Loup # (Auto) 0.6 Eos # (Auto) 0.1 Baso # (Auto) 0.0 Absolute Nucleated RBC 0.00 Nucleated RBC % 0.0 Sodium 135 Potassium 3.8 Chloride 102 Carbon Dioxide 29 Anion Gap 4.0 L BUN 14 Creatinine 0.7 Estimated GFR (MDRD) 81 L Glucose 117 H Calcium 9.8 Total Bilirubin 0.6 AST 19 ALT 18 Alkaline Phosphatase 73 B-Natriuretic Peptide 47 Total Protein 7.3 Albumin 4.6 Globulin 2.7 Albumin/Globulin Ratio 1.7 PD Medical Decision Making - ED course ED course: Discussed with her that at higher heart rates being off of the beta-donald is normal/par for the course and she could either restart her sotalol at half dose while waiting to hear from her collision worker versus expectant management. Departure - Departure Disposition: 01 Home, Self Care Clinical Impression: Encounter for monitoring beta donald therapy Condition: Good Record reviewed to determine appropriate education?: Yes Comments: As discussed, having higher heart rates off of the sotalol is expected/normal. You can either stay off the sotalol and recognize that higher heart rates are normal or perhaps you could start at half dose pending follow-up with your collision worker. Return for new or worsening symptoms.
[2023-01-23 15:43] VITALS: BP 151/81; O2SAT 99
== END 2023-01-23 15:38 | disposition home or self-care (01) ==
LOC: ED 13:40
DX: R00.0 Tachycardia, unspecified (principal)
CPT/HCPCS: 36415; 80053; 83880; 85025; 93005; 99283; 99284

== ENCOUNTER 2023-03-26 09:14 | Outpatient (CLI) | payer MEDICARE, OTHER ==
--- NOTE | 2023-03-27 11:58 | Mammography Report ---
BILATERAL DIGITAL SCREENING MAMMOGRAM 3D/2D: 03/26/2023 CLINICAL: Routine screening. Comparison is made to exams dated: 03/23/2022 mammogram, 03/01/2021 mammogram, 12/15/2019 mammogram, mammogram, 02/01/2016 mammogram, and 12/31/2014 mammogram - [facility]. There are scattered areas of fibroglandular density in both breasts (category b / 25%-50% glandular t issue). No significant masses, calcifications, or other findings are seen in either breast. There has been no significant interval change. IMPRESSION: NEGATIVE There is no mammographic evidence of malignancy. A 1 year screening mammogram is recommended. Based on the Tyrer Cuzick model (a risk assessment model) the patient's lifetime risk is 3.5% and her 10 year risk is 0.0%. According to the ACR, ACS, and NCCN guidelines, an annual breast MRI exam kerri g with mammogram is recommended if the patients lifetime risk is 20% or greater. This exam was interpreted at Station ID: [id number]. NOTE: For mammograms, a report in lay terms will be sent to the patient. Approximately 15% of breast malignancies will not be visualized mammographically. In the management of a palpable breast mass, a negative mammogram must not discourage biopsy of a clinically suspicious lesion. Electronically Signed By: Lissette maxwell/boyd:03/26/2023 16:54:52 ACR BI-RADS Category 1: Negative 3341F PARENCHYMAL PATTERN: (A) - The breast(s) demonstrate(s) scattered fibroglandular densities. BI-RADS CATEGORY: (1) - 1 Mammogram [id number] 1 year screening LATERALITY: (B)
== END 2023-03-26 09:15 | disposition home or self-care (01) ==
LOC: DI.N 09:14
DX: Z12.31 Encounter for screening mammogram for malignant neoplasm of breast (principal); R92.323 Mammographic fibroglandular density, bilateral breasts

== ENCOUNTER 2023-08-07 06:55 | Outpatient (CLI) | payer MEDICARE, OTHER | END 2023-08-07 23:59 | disposition EMS.NT | LOC: EMS 06:55 | DX: R00.0 Tachycardia, unspecified (principal) ==

== ENCOUNTER 2023-09-27 13:02 | Outpatient (CLI) | payer MEDICARE, OTHER ==
--- NOTE | 2023-09-27 21:04 | DEXA Report ---
PROCEDURE: Dexa Spine and/or Hip INDICATIONS: OSTEOPENIA TECHNIQUE: Dual energy x-ray absorptiometry (DXA) was performed on a [employer]umi System. Regions measur ed are the AP Spine, femoral neck, and if needed forearm. COMPARISON: DEXA 09/14/2015. FINDINGS: Lumbar Spine: Bone Mineral Density: 1.069 g/cm/cm, T score: -0.9. Since the most recent prior study, there has bee n a statistically significant decrease in bone mineral density by -3.3 percent. Left Femoral Neck: Bone Mineral Density: 0.825 g/cm/cm, T score: -1.5. Left Hip: Bone Mineral Density: 0.992 g/cm/cm, T score: -0.1. Since the most recent prior study, there has been a statistically significant decrease in bone mineral density by -5.4 percent. FRAX risk factors: None given. 10 year risk of major osteoporotic fracture: 12.1% major osteoporotic fracture = hip, clinical vertebral, proximal humerus, distal forearm 10 year risk of hip fracture: 2.6% (T score greater or equal to -1.0: NORMAL) (T score from -1.1 to -2.4: OSTEOPENIA) (T score less than or equal to -2.5 to: OSTEOPOROSIS) Impression: By WHO criteria, this patient has low bone density (osteopenia). Interval statistical decrease in bone mineral density of the lumbar spine. Interval statistical decrease in bone mineral density of the hip. Patients with diagnosis of osteoporosis or osteopenia should have regular bone mineral density assess ment. For those eligible for Medicare, routine testing is allowed once every 2 years. Testing frequ ency can be increased for patients who have rapidly progressing disease or for those who are receivin g medical therapy to restore bone mass. Reviewed by: Figueroa Matamoros MD on 09/27/2023 9:03 PM PDT Approved by: Figueroa Matamoros MD on 09/27/2023 9:03 PM PDT Station ID: [id number]
== END 2023-09-27 13:03 | disposition home or self-care (01) ==
LOC: DI 13:02
PROVIDERS: ATTEND Internal Medicine
DX: M85.88 Other specified disorders of bone density and structure, other site (principal)